=== PATIENT | female | born 1945 | race Caucasian/White ===

== ENCOUNTER 2020-11-06 16:16 | Outpatient (REF) | payer MEDICARE, SELFPAY ==
--- NOTE | ~2020-11-06 | XR_ITS ---
EXAMINATION: XR SHOULDER, RIGHT CLINICAL INFORMATION: Pain right shoulder COMPARISON: None TECHNIQUE: AP external rotation, Grashey, scapular Y, and axillary views of the right shoulder. FINDINGS: There is mild loss of right hip joint space without bony erosive changes. There is moderate inferior pulmonary articular spurring right extending into the rotator cuff. The soft tissues are normal. No acute fracture or dislocation. XR/XR shoulder RT min 2V IMPRESSION: Moderate right inferior periarticular spurring AC joint extending into the rotator cuff. Mild degenerative changes right glenohumeral joint.
== END 2020-11-06 16:17 | disposition home or self-care (01) ==
LOC: HO.HMGCX 16:16
PROVIDERS: PCP Internal Medicine; Visit Provider Hospitalist
DX: M25.511 Pain in right shoulder (principal)
CPT/HCPCS: 73030

== ENCOUNTER 2021-01-31 09:03 | Outpatient (REF) | payer MEDICARE, SELFPAY ==
[2021-01-31 11:19] LABS: Appearance Urine CLEAR; Color Urine YELLOW; Glucose Urine UA NEG (NEG); Leukocyte Esterase Urine NEG (NEG); Nitrite Urine NEG (NEG); Specific Gravity - Urine 1.025 (1.005-1.025); Urine Blood NEG (NEG); Urine Ketones 5 MG/DL (NEG); Urine Protein NEG (NEG-TRACE)
== END 2021-01-31 09:04 | disposition home or self-care (01) ==
LOC: HO.HMGCLDS 09:03
PROVIDERS: PCP Internal Medicine; Visit Provider Internal Medicine
DX: R82.71 Bacteriuria (principal)
CPT/HCPCS: 81003

== ENCOUNTER 2021-05-01 07:39 | Outpatient (REF) | payer MEDICARE, SELFPAY ==
--- NOTE | ~2021-05-01 | US_ITS ---
EXAMINATION: US VENOUS ULTRASOUND WITH DOPPLER LOWER EXTREMITY, BILATERAL CLINICAL INFORMATION: Leg edema. COMPARISON: None TECHNIQUE: Ultrasound of the deep veins is performed from the hip to the calf with compression sonography and color and pulse Doppler assessment. Spectral analysis with color-flow imaging is performed. FINDINGS: RIGHT: There is normal venous compression and respiratory variation and augmented flow. The visualized common femoral vein, superficial femoral vein, profunda femoral vein, popliteal vein, and the trifurcation region shows no evidence of deep venous thrombosis. There is no significant popliteal fossa cyst. LEFT: There is normal venous compression and respiratory variation and augmented flow. The visualized common femoral vein, superficial femoral vein, profunda femoral vein, popliteal vein, and the trifurcation region shows no evidence of deep venous thrombosis. There is no significant popliteal fossa cyst. If the patient's symptoms persist, followup ultrasound in 5 days 7 days might be of value to exclude proximal propagation from a non-visualized calf vein. There is no loculated the fluid around the ankle. US/US venous duplex LE BI IMPRESSION: No DVT demonstrated in the lower extremities.
== END 2021-05-01 07:40 | disposition home or self-care (01) ==
LOC: HO.US 07:39
PROVIDERS: PCP Internal Medicine; Visit Provider Internal Medicine
DX: R60.0 Localized edema (principal)
CPT/HCPCS: 93970

== ENCOUNTER 2022-09-12 08:44 | Outpatient (REF) | payer MEDICARE, SELFPAY ==
[2022-09-12 11:41] LABS: Hematocrit 42.8 % (37.0-47.0); Hemoglobin 13.7 g/dl (12.0-16.0); Mean Corpuscular Hemoglobin 32.3 pg (27.0-33.0); Mean Corpuscular Volume 100.9 fL (80.0-98.0); Mean Platelet Volume 8.8 fL (9.4-12.3); Platelet Count 381 X10*3/uL (160-400); Red Blood Count 4.24 X10*6/uL (4.20-5.50); Red Cell Distribution Width 13.4 % (11.0-16.0); White Blood Count 10.7 X10*3/uL (4.8-10.8)
== END 2022-09-12 08:45 | disposition home or self-care (01) ==
LOC: HO.HMGCLDS 08:44
PROVIDERS: PCP Internal Medicine; Visit Provider Internal Medicine
DX: D69.6 Thrombocytopenia, unspecified (principal)
CPT/HCPCS: 36415; 85027

== ENCOUNTER 2022-10-10 08:32 | Outpatient (REF) | payer MEDICARE, SELFPAY ==
[2022-10-10 11:44] LABS: Alanine Aminotransferase 17 U/L (0-31); Albumin Level 4.1 g/dL (3.5-5.0); Alkaline Phosphatase 67 U/L (39-117); Anion Gap 13 (12-20); Aspartate Amino Transferase 20 U/L (5-31); Bilirubin Total 0.9 mg/dL (0.0-1.0); Blood Urea Nitrogen 15 mg/dL (9-16); Calcium 9.5 mg/dL (8.4-10.2); Carbon Dioxide 32 mmol/L (22-29); Chloride 102 mmol/L (96-108); Cholesterol 176 mg/dL; Estimated Glomerular Filt Rate > 60; Glucose Fasting 94 mg/dL (60-99); HDL Cholesterol 57 mg/dL; LDL Cholesterol Calculated 105 mg/dl; Magnesium 2.2 mg/dL (1.6-2.6); Potassium 4.3 mmol/L (3.3-5.1); Sodium 143 mmol/L (135-145); Total Protein 6.8 g/dL (6.5-8.0); Triglycerides 70 mg/dL
[2022-10-10 13:09] LABS: Free T4 (Free Thyroxine) 1.16 ng/dL (0.71-1.85)
== END 2022-10-10 08:33 | disposition home or self-care (01) ==
LOC: HO.HMGCLDS 08:32
PROVIDERS: PCP Internal Medicine; Visit Provider Internal Medicine
DX: I10 Essential (primary) hypertension (principal); E03.9 Hypothyroidism, unspecified; E78.5 Hyperlipidemia, unspecified
CPT/HCPCS: 36415; 80053; 80061; 83735; 84439; 84443

== ENCOUNTER 2022-12-26 12:49 | Outpatient (AMB) | payer MEDICARE, SELFPAY ==
[2022-12-26 13:08] VITALS: BP 136/80; PULSE 61; BMI 27.8
--- NOTE | 2022-12-26 13:08 | A.OFFVIS_ITS ---
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 Intake Note: NPV Accompanied by: Self / Same As Patient Allergies lisinopril Allergy (Unknown, Verified 12/26/22 13:10) hyperkalemia amlodipine Adverse Reaction (Verified 12/26/22 13:10) swelling in hands and legs Medication List - Last Reconciled 12/26/22 by Denis Mckinney MD ascorbate calcium (vitamin C) 500 mg PO DAILY atorvastatin 10 mg PO DAILY cholecalciferol (vitamin D3) 25 mcg PO DAILY gabapentin 600 mg PO BEDTIME hydrochlorothiazide 25 mg PO QAM levothyroxine 112 mcg PO DAILY lidocaine 5% 1 ea topical BID jw-vcsuoek-quq-iron fm-FA-vitK 18 mg-400 mcg- 25 mcg (One-A-Day Women's Complete(with vit K)) tabs PO HPI HPI Comments History of Present Illness Details Maxine is here for evaluation regarding abnormal EKG. She does not have any known history of coronary disease, myocardial infarction or cardiomyopathy. She has seen [facility] in the past. She seems to medications for hypertension, dyslipidemia. No clear-cut chest pains. Sometimes may get short of breath with activity. At nighttime she may get dizzy when she gets up which could be orthostatic in nature. Due to concern for abnormal EKG, she has been referred here. [facility] Medical History Annual physical exam Bacteriuria Hiatal hernia Hyperlipidemia Hypothyroidism Leg edema Lumbar radiculopathy Normal pelvic exam Vitamin D deficiency Surgical History H/O colonoscopy History of esophagogastroduodenoscopy (EGD) History of spinal surgery Family History Father No problems noted. Mother No problems noted. Social History Housing: House Alcohol intake: current Alcohol intake frequency: holidays/special occasions only Patient Tobacco Use Status: Never used Tobacco e-Cigarette/Vaping Use: Never Used Current occupational status: retired Cognitive needs: No Hearing needs: No Vision needs: No Review of Systems Const Denies chills, Denies daytime sleepiness, Denies fatigue, Denies fever(s), Denies frequent falls, Denies night sweats, Denies snoring, Denies weakness, Denies weight gain and Denies weight loss Eyes Denies loss of vision ENT Denies dizziness and Denies hearing loss Card Denies chest pain, Denies chest pain with activity, Denies syncope, Denies rapid heart rate, Denies edema, Denies claudication, Denies leg edema, Denies lightheadedness, Denies palpitations, Denies dyspnea, Denies dyspnea on exertion and Denies orthopnea Resp Denies cough, Denies excessive phlegm production, Denies dyspnea, Denies dyspnea on exertion, Denies snoring and Denies wheezing GI Denies abdominal pain, Denies hematochezia, Denies change in bowel habits, Denies change in stool character, Denies heartburn, Denies nausea and Denies vomiting Denies hematuria, Denies urinary frequency and Denies dysuria Musc Denies arthralgias, Denies muscle weakness, Denies numbness and Denies tingling Skin/Breast Denies nail changes and Denies rash Neuro Denies Abnormal speech present, Denies dizziness, Denies syncope, Denies frequent falls, Denies loss of vision, Denies memory loss, Denies numbness, Denies tingling and Denies weakness Psych Denies depression and Denies memory loss Endo Denies fatigue and Denies palpitations Aller/Immun Denies wheezing Physical Exam Vital Signs: Last Vital Signs Pulse 61 12/26/22 13:08 BP 136/80 12/26/22 13:08 BMI result Body Mass Index 27.8 Const General: comfortable and no acute distress Orientation/consciousness: patient oriented x3 HEENT Other: Unremarkable Head: Yes normal to inspection Neck Neck: Yes normal visual inspection Chest Chest palpation & inspection: normal inspection of the chest Resp Auscultation: clear to auscultation bilaterally Cardio Palpation: normal PMI Heart sounds: S1 normal heart sound present, S2 normal heart sound present, no gallops, no murmurs and no rubs GI Palpation (GI): Soft to palpation Back/Spine/Pelvis Other: unremarkable Skin General skin exam: no rashes or lesions noted Neuro General: patient oriented x3 Speech: No Abnormal speech present Extrem General: Yes normal to inspection Psych Mental Status: mental status grossly normal Assessment & Plan Assessment & Plan (1) Abnormal EKG: Code(s): R94.31 - Abnormal electrocardiogram [ECG] [EKG] Plan In the recent EKG, underlying rhythm is sinus at 69/Min; no significant ST-T changes; cannot exclude inferior as well as anterolateral infarction. Compared to prior EKG from [facility] in 2020, no significant changes. Echocardiogram from [facility] 2020 shows LVEF of 60-65%. No wall motion abnormalities. No significant valvular issues. Myocardial perfusion imaging study from 2020 at [facility] showed no significant perfusion abnormalities. However, in the exercise component she walked only for 4 minutes and reached 5.7 Mets. Hence possibly inadequate exercise time. Overall, her EKG has not changed significantly from the last time and based on the above no clear ischemic heart disease either. As the stress test was suboptimal the last time, we can consider repeating it. We can re-attempt walking on the treadmill. If inadequate, possibly switch to Lexiscan. With regard to nighttime dizziness, probably orthostatic. Will need to be careful getting up. Discussed. Follow-up in a few weeks time. Total time spent including review of [facility] records, counseling, documentation, coordination of care-47 minutes. Orders: Orders CA stress test Today R07.2 - Precordial pain, R94.31 - Abnormal electrocardiogram [ECG] [EKG] NM cardiolite stress test Today R07.2 - Precordial pain, R94.31 - Abnormal electrocardiogram [ECG] [EKG] Coding Level of Care Code New Pt Level 4 (71290) Diagnoses Abnormal EKG R94.31
== END 2022-12-26 13:39 | disposition home or self-care (01) ==
PROVIDERS: PCP Internal Medicine; Referring Provider Internal Medicine; Visit Provider Internal Medicine
DX: R94.31 Abnormal electrocardiogram [ECG] [EKG] (principal)
CPT/HCPCS: 99204

== ENCOUNTER → 2022-12-26 12:49 | Outpatient (BNVA) | payer MEDICARE, SELFPAY | PROVIDERS: PCP Internal Medicine; Referring Provider Internal Medicine; Visit Provider Internal Medicine | DX: R94.31 Abnormal electrocardiogram [ECG] [EKG] (principal) | CPT/HCPCS: 99202 ==

== ENCOUNTER → 2023-02-11 08:38 | Outpatient (REF) | payer MEDICARE, SELFPAY ==
--- NOTE | ~2023-02-11 | NM_ITS ---
EXERCISE MYOCARDIAL PERFUSION STUDY INDICATION: Abnormal EKG TECHNIQUE: The patient was brought in for an exercise perfusion study on 02/11/2023. Patient performed exercise as per [facility] protocol and was injected 25 mCi of sestamibi once target heart rate was achieved. Images were obtained using the SPECT gamma camera interlaced with the gating device. Images were obtained in supine position. Resting perfusion study was performed on 02/12/2023. Patient was administered 25 mCi of sestamibi intravenously at rest. Images were then obtained in supine position. Images were processed with the software and compared side to side in short axis, horizontal long axis and vertical long axis views. Total DLP 118mGy-cm. FINDINGS: Raw images were reviewed. The stress perfusion study showed diminished tracer uptake in the distal part of inferolateral wall. There is improvement with CT attenuation correction suggestive of diaphragmatic attenuation artifact. The gated study shows normal LV systolic function with calculated LVEF of 72%. LV cavity is normal in size. The gated study shows normal wall thickening and contraction of segments. Resting study shows diminished tracer uptake in the distal part of inferolateral wall. There is improvement with CT attenuation correction suggestive of diaphragmatic attenuation artifact. Gating at rest reveals normal wall motion with ejection fraction at 73%. The findings are consistent with fixed distal inferolateral defect suspected to be from diaphragmatic attenuation artifact. No clear reversible defects. NM/NM cardiolite stress test IMPRESSION: 1. Myocardial perfusion imaging study shows likely normal myocardial perfusion. 2. Gated LVEF is 72% during stress and 73% during rest.. 3. Transient ischemic dilatation not present. EKG component of the test reported separately.
--- NOTE | 2023-02-11 08:40 | CA_ITS ---
Acquisition Time: 2023-02-11 08:56:55 Total Exercise Time: 00:05:01 Test Indications: ABN EKG Medications: SEE H Protocol: OSEAS Max HR: 146 BPM 102% of Pred: 143 BPM Max BP: 140/084 mmHG Max Work Load: 5.7 METS Exercise stress test exercise 5 min 1 sec of Oseas protoocl achieving 102% MPHR, without chest discomfort, with mild to moderate SOB, with isolated PACs, with normotensive response to exercise, without EKG changes. Nuclear images pending. Test reviewed with Dr. Whitman Referred By: Denis Mckinney Overread By: Britany Melendez
== END ==
LOC: HO.CARD 08:38
PROVIDERS: PCP Internal Medicine; Visit Provider Internal Medicine
DX: R07.2 Precordial pain (principal); R94.31 Abnormal electrocardiogram [ECG] [EKG]
CPT/HCPCS: 78452; 93017; A9500

== ENCOUNTER → 2023-02-11 08:40 | Outpatient (BNV) | payer MEDICARE, SELFPAY | PROVIDERS: PCP Internal Medicine; Visit Provider Nurse Practitioner | DX: R06.02 Shortness of breath (principal); R94.31 Abnormal electrocardiogram [ECG] [EKG] | CPT/HCPCS: 78452; 93016; 93018 ==

== ENCOUNTER 2023-02-14 08:09 | Outpatient (AMB) | payer MEDICARE, SELFPAY ==
[2023-02-14 08:14] VITALS: BP 122/64; PULSE 71; O2SAT 95; BMI 28.0
--- NOTE | 2023-02-14 08:14 | A.OFFPC_ITS ---
Vital Signs 02/14/23 08:14 Height 5 ft 6.5 in Weight 176 lb BMI 28.0 BP 122/64 Blood Pressure Location Lt brachial Position Sitting Pulse 71 Pulse Source Pulse Oximeter Pulse Oximetry (%) 95 Oxygen Delivery Method Room Air Intake Visit Reasons: 3m follow up Intake Note: Pt is here today for 3 months. Allergies lisinopril Allergy (Unknown, Verified 02/14/23 08:18) hyperkalemia amlodipine Adverse Reaction (Verified 02/14/23 08:18) swelling in hands and legs Medication List - Last Reconciled 02/14/23 by Anabella Lopez MD ascorbate calcium (vitamin C) 500 mg PO DAILY atorvastatin 10 mg PO DAILY cholecalciferol (vitamin D3) 25 mcg PO DAILY gabapentin 600 mg PO BEDTIME hydrochlorothiazide 25 mg PO QAM levothyroxine 112 mcg PO DAILY lidocaine 5% 1 ea topical BID pb-fnoorjm-uuh-iron fm-FA-vitK 18 mg-400 mcg- 25 mcg (One-A-Day Women's Complete(with vit K)) tabs PO Tobacco use date assessed: 02/14/23 HPI 3m follow up HPI Details Pt presents for f/u hyperlipid, hypothyroid, HTN, stable on meds. Patient is planning to sell her house and moved to the apartment next year. She is going on a trip to [place] next month. [facility] Medical History Vitamin D deficiency Normal pelvic exam Annual physical exam Leg edema Bacteriuria Hiatal hernia Hypothyroidism Hyperlipidemia Lumbar radiculopathy Surgical History History of esophagogastroduodenoscopy (EGD) H/O colonoscopy History of spinal surgery Family History Father No problems noted. Mother No problems noted. Social History Housing: House Alcohol intake: current Alcohol intake frequency: holidays/special occasions only Patient Tobacco Use Status: Never used Tobacco e-Cigarette/Vaping Use: Never Used Current occupational status: retired Cognitive needs: No Hearing needs: No Vision needs: No Review of Systems Const All systems reviewed & are unremarkable except as noted in HPI and below Reports no additional complaints Eyes Reports no additional complaints ENT Reports no additional complaints Card Reports no additional complaints Resp Reports no additional complaints GI Reports no additional complaints Physical exam (Primary Care) Vital Signs: Last Vital Signs Pulse 71 02/14/23 08:14 BP 122/64 02/14/23 08:14 Pulse Ox 95 02/14/23 08:14 Oxygen Delivery Method Room Air 02/14/23 08:14 BMI result Body Mass Index 28.0 Tobacco/Smoking Status: Tobacco use Status Tobacco use date assessed 02/14/23 02/14/23 08:20 Patient Tobacco Use Status Never used Tobacco 02/14/23 08:20 e-Cigarette/Vaping Use Never Used 02/14/23 08:20 Const General: no acute distress HENMT Head: Yes normal to inspection Mouth: Normal oral and palatal mucosa present Eyes General: appearance normal, both eyes and all related structures Resp Effort & Inspection: normal respiratory effort Auscultation: clear to auscultation bilaterally Cardio Rhythm: regular rhythm Heart sounds: S1 normal heart sound present and S2 normal heart sound present GI Inspection: Yes normal to inspection Assessment and Plan Assessment & Plan (1) HTN (hypertension): Code(s): I10 - Essential (primary) hypertension Plan: cont HCTZ (2) Vitamin D deficiency: Code(s): E55.9 - Vitamin D deficiency, unspecified Plan: cont vit D (3) Hypothyroidism: Comment: f/u with Endo Code(s): E03.9 - Hypothyroidism, unspecified Plan: Continue levothyroxine Orders: Orders TSH reflex Free T4 Today E03.9 - Hypothyroidism, unspecified, E55.9 - Vitamin D deficiency, unspecified, I10 - Essential (primary) hypertension Comprehensive Met. Panel Today E03.9 - Hypothyroidism, unspecified, E55.9 - Vitamin D deficiency, unspecified, I10 - Essential (primary) hypertension Vitamin D 25-OH Total Today E03.9 - Hypothyroidism, unspecified, E55.9 - Vitamin D deficiency, unspecified, I10 - Essential (primary) hypertension Medications: New omeprazole 20 mg PO DAILY 90 caps 0RF levothyroxine 112 mcg PO DAILY 90 tabs 3RF Coding Level of Care Code Est Pt Level 4 (75542) Diagnoses HTN (hypertension) I10 Vitamin D deficiency E55.9 Hypothyroidism E03.9
== END 2023-02-14 09:10 | disposition home or self-care (01) ==
PROVIDERS: PCP Internal Medicine; Visit Provider Internal Medicine
DX: I10 Essential (primary) hypertension (principal); E55.9 Vitamin D deficiency, unspecified; E03.9 Hypothyroidism, unspecified
CPT/HCPCS: 99214

== ENCOUNTER 2023-02-14 08:39 | Outpatient (REF) | payer MEDICARE, SELFPAY ==
[2023-02-14 11:58] LABS: Alanine Aminotransferase 17 U/L (0-31); Albumin Level 3.9 g/dL (3.5-5.0); Alkaline Phosphatase 68 U/L (39-117); Anion Gap 18 (12-20); Aspartate Amino Transferase 30 U/L (5-31); Bilirubin Total 0.5 mg/dL (0.0-1.0); Blood Urea Nitrogen 16 mg/dL (9-16); Calcium 9.5 mg/dL (8.4-10.2); Carbon Dioxide 26 mmol/L (22-29); Chloride 102 mmol/L (96-108); Estimated Glomerular Filt Rate > 60; Glucose Random 108 mg/dL (60-115); Potassium 4.1 mmol/L (3.3-5.1); Sodium 142 mmol/L (135-145); Total Protein 7.1 g/dL (6.5-8.0)
[2023-02-14 12:14] LABS: TSH reflex Free T4 2.98 uIU/mL (0.32-4.0); Vitamin D 25-OH Total 53.3 ng/mL (>30)
== END 2023-02-14 08:40 | disposition home or self-care (01) ==
LOC: HO.HMGCLDS 08:39
PROVIDERS: PCP Internal Medicine; Visit Provider Internal Medicine
DX: I10 Essential (primary) hypertension (principal); E55.9 Vitamin D deficiency, unspecified; E03.9 Hypothyroidism, unspecified
CPT/HCPCS: 36415; 80053; 82306; 84443

== ENCOUNTER 2023-03-21 08:33 | Outpatient (AMB) | payer MEDICARE, SELFPAY ==
[2023-03-21 08:41] VITALS: BP 120/72; PULSE 54; BMI 27.5
--- NOTE | 2023-03-21 08:41 | MHC.OFFVIS ---
Intake Vital Signs 03/21/23 08:41 Height 5 ft 6 in Weight 170 lb 3.15 oz BMI 27.5 BP 120/72 Blood Pressure Location Lt brachial Position Sitting Pulse 54 Pulse Source Pulse Oximeter Intake Visit Reasons: f/u after testing Allergies lisinopril Allergy (Unknown, Verified 03/21/23 08:43) hyperkalemia amlodipine Adverse Reaction (Verified 03/21/23 08:43) swelling in hands and legs Medication List - Last Reconciled 03/21/23 by Malinda Mcclure, MARK-C ascorbate calcium (vitamin C) 500 mg PO DAILY atorvastatin 10 mg PO DAILY cholecalciferol (vitamin D3) 25 mcg PO DAILY gabapentin 600 mg PO BEDTIME hydrochlorothiazide 25 mg PO QAM levothyroxine 112 mcg PO DAILY lidocaine 5% 1 ea topical BID ks-tgmgkpn-leq-iron fm-FA-vitK 18 mg-400 mcg- 25 mcg (One-A-Day Women's Complete(with vit K)) tabs PO omeprazole 20 mg PO DAILY HPI f/u after testing HPI Details Maxine is a 77-year-old female with past medical history of hypertension, hyperlipidemia, abnormal EKG who presents for follow-up after recent nuclear stress test. Today she reports she has been feeling well with no concerning symptoms. She denies any chest discomfort, shortness of breath, palpitations, presyncope, syncope, PND, orthopnea or edema. She has good activity tolerance. She takes her medications as directed. [facility] Medical History Vitamin D deficiency Normal pelvic exam Annual physical exam Leg edema Bacteriuria Hiatal hernia Hypothyroidism Hyperlipidemia Lumbar radiculopathy Surgical History History of esophagogastroduodenoscopy (EGD) H/O colonoscopy History of spinal surgery Family History Father No problems noted. Mother No problems noted. Social History Housing: House Alcohol intake: current Alcohol intake frequency: holidays/special occasions only Patient Tobacco Use Status: Never used Tobacco e-Cigarette/Vaping Use: Never Used Current occupational status: retired Cognitive needs: No Hearing needs: No Vision needs: No Review of Systems Const All systems reviewed & are unremarkable except as noted in HPI and below ENT Denies dizziness Card Denies chest pain, Denies chest pain at rest, Denies chest pain with activity, Denies rapid heart rate, Denies pedal edema, Denies edema, Denies leg edema, Denies lightheadedness, Denies palpitations, Denies dyspnea, Denies dyspnea on exertion and Denies orthopnea Resp Denies cough, Denies dyspnea and Denies dyspnea on exertion GI Denies hematochezia and Denies change in stool character Musc Details: Low back discomfort at times Denies abnormal gait, Denies limited range of motion, Denies muscle cramps, Denies muscle weakness, Denies numbness, Denies radiating pain into limb, Denies stiffness and Denies tingling Neuro Denies abnormal gait, Denies dizziness, Denies numbness and Denies tingling Endo Denies palpitations Physical Exam Vital Signs: Last Vital Signs Pulse 54 03/21/23 08:41 BP 120/72 03/21/23 08:41 BMI result Body Mass Index 27.5 Const General: cooperative, healthy appearing, comfortable and no acute distress Orientation/consciousness: patient oriented x3 HEENT Head: Yes normal to inspection Neck Neck: Yes normal visual inspection Resp Effort & Inspection: normal respiratory effort Auscultation: clear to auscultation bilaterally, no crackles, no rales, no rhonchi and no wheezes Cardio Jugular venous distension: no JVD Rate: regular rate Rhythm: regular rhythm Heart sounds: S1 normal heart sound present, S2 normal heart sound present, no murmurs and no rubs Neuro General: patient oriented x3 Extrem General: Yes normal to inspection, No no pedal edema and No calf tenderness Psych Appearance: grossly normal Mental Status: mental status grossly normal Speech and movement: Normal speech and movement present Assessment & Plan Assessment & Plan (1) Abnormal EKG: Code(s): R94.31 - Abnormal electrocardiogram [ECG] [EKG] Plan: EKGs abnormal, can not exclude inferior and anterior lateral MIs in the past. She denies any known history of known ND, heart disease. Echocardiogram done at [facility] 2020 showed EF 60-65%, no wall motion abnormalities, no significant valve abnormalities. EKG done at that time no significant change from current EKG. Nuclear stress test done in 2020 showed no significant perfusion defects. She did have low exercise capacity. On last visit she was evaluated and had no anginal symptoms. A repeat nuclear stress test was done on 02/11/2023 with exercise 5 minutes achieving heart rate 1 0 2% mph are, [id number] shortness of breath, no chest discomfort, no EKG changes and normal myocardial perfusion imaging. Spent time reviewing results with her in detail. Cardiac risk factor modifications reviewed. Signs and symptoms of angina reviewed. Cardiology follow-up in 1 year, sooner if needed (2) HTN (hypertension): Code(s): I10 - Essential (primary) hypertension Plan: Well controlled at present. Continue atorvastatin and hydrochlorothiazide. No changes made Coding Level of Care Code Est Pt Level 3 (77321) Diagnoses Abnormal EKG R94.31 HTN (hypertension) I10 Time Spent (min) 24
== END 2023-03-21 09:01 | disposition home or self-care (01) ==
PROVIDERS: PCP Internal Medicine; Visit Provider Nurse Practitioner Family
DX: R94.31 Abnormal electrocardiogram [ECG] [EKG] (principal); I10 Essential (primary) hypertension
CPT/HCPCS: 99213

== ENCOUNTER → 2023-03-21 08:33 | Outpatient (BNVA) | payer MEDICARE, SELFPAY | PROVIDERS: PCP Internal Medicine; Visit Provider Nurse Practitioner Family | DX: R94.31 Abnormal electrocardiogram [ECG] [EKG] (principal); I10 Essential (primary) hypertension | CPT/HCPCS: 99212 ==

== ENCOUNTER 2023-07-03 10:52 | Outpatient (AMB) | payer MEDICARE, SELFPAY ==
[2023-07-03 10:59] VITALS: BP 118/74; PULSE 69; TEMP 36.4; O2SAT 99; BMI 27.9
--- NOTE | 2023-07-03 10:59 | MHC.OFFWIV ---
Intake Vital Signs 07/03/23 10:59 Height 5 ft 6 in Weight 173 lb BMI 27.9 BP 118/74 Blood Pressure Location Lt brachial Position Sitting Pulse 69 Pulse Source Pulse Oximeter Temp 97.6 F Temp Source Temporal Artery Scan Pulse Oximetry (%) 99 Oxygen Delivery Method Room Air Intake Visit Reasons: EP LFT shoulder pain Intake Note: pt is here today for lft shoulder pain started 1 week ago Patient Tobacco Use Status: Never used Tobacco Allergies lisinopril Allergy (Unknown, Verified 07/03/23 11:04) hyperkalemia amlodipine Adverse Reaction (Verified 07/03/23 11:04) swelling in hands and legs Do you need a note to return to daycare/school/sports/work: No HPI HPI Comments History of Present Illness Details This is a right-hand dominant 77-year-old female with a past medical history of hypertension, hypothyroidism and hyperlipidemia presenting for evaluation of left shoulder pain that she has had for the past 1 week. Patient denies any injury or trauma but noted this morning that it was very painful when she was trying to put on her bra. Patient is describing a throbbing sensation in her left for your shoulder that is reproducible with touch. Patient denies any overt chest in, cough or shortness a breath. She has taken ibuprofen 800mg one time yesterday which she found moderately helpful for her discomfort. [facility] Medical History Vitamin D deficiency Normal pelvic exam Annual physical exam Leg edema Bacteriuria Hiatal hernia Hypothyroidism Hyperlipidemia Lumbar radiculopathy Surgical History History of esophagogastroduodenoscopy (EGD) H/O colonoscopy History of spinal surgery Family History Father No problems noted. Mother No problems noted. Social History Housing: House Alcohol intake: current Alcohol intake frequency: holidays/special occasions only Patient Tobacco Use Status: Never used Tobacco e-Cigarette/Vaping Use: Never Used Current occupational status: retired Cognitive needs: No Hearing needs: No Vision needs: No Review of Systems Const Reports no additional complaints Card Reports as per HPI, Denies chest pain and Denies dyspnea Resp Reports as per HPI and Denies dyspnea Musc Reports arthralgias (left shoulder) Skin/Breast Reports system reviewed and no additional complaints, except as documented Psych Reports no additional complaints Physical Exam Vital Signs: Last Vital Signs Temp 97.6 F 07/03/23 10:59 Pulse 69 07/03/23 10:59 BP 118/74 07/03/23 10:59 Pulse Ox 99 07/03/23 10:59 Oxygen Delivery Method Room Air 07/03/23 10:59 BMI result Body Mass Index 27.9 Const General: cooperative, healthy appearing, comfortable, no acute distress and well developed; No ill appearing Nutritional Appearance: average body habitus Orientation/consciousness: patient oriented x3 Limitations: no limitations Resp Effort & Inspection: normal respiratory effort Auscultation: clear to auscultation bilaterally Cardio Rate: regular rate Rhythm: regular rhythm Neuro General: patient oriented x3 Extrem Left upper extremity: normal to inspection, full ROM, no joint enlargement and shoulder/upper arm Details: tenderness (left anterior shoulder ) and abnormal ROM (pain L. anterior shoulder with internal rotation of LUE against resistance and abduction); no swelling Psych Appearance: grossly normal Mental Status: mental status grossly normal Insight: Good insight present (Psych) Judgement: Good judgement present (Psych) Assessment & Plan Assessment & Plan (1) Left shoulder strain: Comment: EKG 64bpm, NSR; no acute injury or trauma to left shoulder and therefore imaging is deferred today. Code(s): S46.912A - Strain of unspecified muscle, fascia and tendon at shoulder and upper arm level, left arm, initial encounter Qualifiers: Encounter type: initial encounter Qualified Code(s): S46.912A - Strain of unspecified muscle, fascia and tendon at shoulder and upper arm level, left arm, initial encounter Plan: Naprosyn 500 mg b.i.d. x 10 days. Patient to follow up with her primary care provider within 10-14 days for a re-evaluation of her symptoms and possible referral for physical therapy evaluation. Orders: Orders AMB EKG-In Office Today S46.912A - Strain of unspecified muscle, fascia and tendon at shoulder and upper arm level, left arm, initial encounter Medications: New naproxen (Naprosyn) 500 mg PO BID 20 tabs 0RF Coding Level of Care Code Est Pt Level 3 (21132) Diagnoses Strain of left shoulder, initial encounter S46.912A Encounter type: initial encounter Time Spent (min) 25
== END 2023-07-03 12:25 | disposition home or self-care (01) ==
PROVIDERS: PCP Internal Medicine; Visit Provider Physician Assistant
DX: S46.912A Strain of unspecified muscle, fascia and tendon at shoulder and upper arm level, left arm, initial encounter (principal)
CPT/HCPCS: 99213

== ENCOUNTER 2023-08-13 07:54 | Outpatient (AMB) | payer MEDICARE, SELFPAY ==
[2023-08-13 08:26] VITALS: BP 126/78; PULSE 61; O2SAT 95; BMI 28.7
--- NOTE | 2023-08-13 08:26 | AM.OFFVISMDC ---
Intake Vital Signs 08/13/23 08:26 Height 5 ft 6 in Weight 178 lb BMI 28.7 BP 126/78 Blood Pressure Location Lt brachial Position Sitting Pulse 61 Pulse Source Pulse Oximeter Pulse Oximetry (%) 95 Oxygen Delivery Method Room Air Intake Visit Reasons: SWV G0439 Allergies lisinopril Allergy (Unknown, Verified 08/13/23 08:39) hyperkalemia amlodipine Adverse Reaction (Verified 08/13/23 08:39) swelling in hands and legs Medication List - Last Reconciled 08/13/23 by Anabella Lopez MD ascorbate calcium (vitamin C) 500 mg PO DAILY atorvastatin 10 mg PO DAILY cholecalciferol (vitamin D3) 25 mcg PO DAILY gabapentin 600 mg PO BID hydrochlorothiazide 25 mg PO QAM ibuprofen 800 mg PO Q8H levothyroxine 112 mcg PO DAILY lidocaine 5% 1 ea topical BID cb-ufdmcvg-pjo-iron fm-FA-vitK 18 mg-400 mcg- 25 mcg (One-A-Day Women's Complete(with vit K)) tabs PO omeprazole 20 mg PO DAILY HPI SWV G0439 HPI Details Initiated the conversation about Advanced Directives. Advanced Directives help? patients prepare for current and future decisions about their medical treatment? and place of care. Discussed with patient that it is a process where a patients? current condition and prognosis are reviewed, their wishes for information? regarding their illness are elicited, and likely medical dilemmas are presented? and options discussed. The form can be amended as needed, reviewed yearly and? make changes as needed IPPE/AWV ? year old presents? for her ? Annual? Wellness Visit, initial visit.? Medical / Social History Reviewed? Past Medical History ?Yes? . ? Independence? of Care / Care Team list updated ?Yes . ? Surgical/Hospitalization? History ?Yes . ? Current Medications? (including OTC and supplements) ?Yes . ? Family History ?Yes? . ? Tobacco? Control form ?Yes . ? AUDIT-C (Alcohol use) form? ?Yes . ? Illicit drug use in Social? History ?Yes . ? Current diagnosis of? depression? ?No ? Appropriate PHQ2/PHQ9? completed ?Yes . ? Data entered by ?Medical? Director Cardiac and reviewed by provider ? Fall Risk ? Fall? History? Have you had any falls with? injury in the past year? ?No . ? Have you had two or more? falls in the past year? ?No . ? Fall Risk Assessment: ?No? falls in the past year . ? HRA filled out by? the patient, reviewed by Provider and scanned. ? IPPE/AWV ? Balance? [place]? ?Yes . ? Tandem? walk ?Yes . ? Walk and? Turn ?Yes . ? Rise from? sit to stand ?Yes . ?Vision? Corrective? lens ?Yes ? Vision? screen ? Up-to-date, has an appointment [] for vision? screening and glaucoma screening ?Hearing? Whisper? test ?pass .? Initiated the conversation about Advanced Directives. Advanced Directives help? patients prepare for current and future decisions about their medical treatment? and place of care. Discussed with patient that it is a process where a patients? current condition and prognosis are reviewed, their wishes for information? regarding their illness are elicited, and likely medical dilemmas are presented? and options discussed. The form can be amended as needed, reviewed yearly and? make changes as needed Written? Plan?Completed. See Patient? Documents. [facility] Medical History Vitamin D deficiency Normal pelvic exam Annual physical exam Leg edema Bacteriuria Hiatal hernia Hypothyroidism Hyperlipidemia Lumbar radiculopathy Surgical History History of esophagogastroduodenoscopy (EGD) H/O colonoscopy History of spinal surgery Family History Father No problems noted. Mother No problems noted. Social History Housing: House Alcohol intake: current Alcohol intake frequency: holidays/special occasions only Patient Tobacco Use Status: Never used Tobacco e-Cigarette/Vaping Use: Never Used Current occupational status: retired Cognitive needs: No Hearing needs: No Vision needs: No Questionnaire Medicare Wellness Checkup [age] What gender do you identify with?: female During the past 4 weeks, how much have you been bothered by emotional problems such as feeling anxious, depressed, irritable, sad or downhearted, and blue?: not at all During the past 4 weeks, has your physical & emotional health limited your social activities with family, friends, neighbors, or groups?: not at all During the past 4 weeks, how much bodily pain have you generally had?: very mild pain During the past 4 weeks, was someone available to help you if you needed & wanted help?: no, not at all During the past 4 weeks, what was the hardest physical activity you could do for at least 2 minutes?: very light Can you get to places out of walking distance without help? (For eg., can you travel alone on buses, taxis or drive your car?): Yes Can you go shopping for groceries or clothes without someone's help?: Yes Can you prepare your own meals?: Yes Can you do your housework without help?: Yes Because of any health problems, do you need the help of another person with your personal care needs such as eating, bathing, dressing or getting around the house?: No Can you handle your own money without help?: Yes During the past 4 weeks, how would you rate your health in general?: very good During the past 4 weeks how have things been going for you?: very well; could hardly better Are you having difficulties driving your car?: not applicable, I don't use a car Do you always fasten your seat belt when you are in a car?: yes, usually During past 4 weeks, have you been bothered by the following: never: Falling or dizzy when standing up, Sexual problems?, Trouble eating well?, Teeth or denture problems?, Problems using the telephone? and Tiredness or fatigue? Have you fallen 2 or more times in the past year?: No Are you afraid of falling?: No Are you a smoker?: no During the past 4 weeks, how many drinks of wine, beer, or other alcoholic beverages did you have?: no alcohol at all Do you exercise for about 20 minutes 3 or more times a week?: yes, some of the time Have you been given information to help with the following?: yes: Keeping track of your medications? and no: Hazards in your house that might hurt you? How often do you have trouble taking medicines the way you have been told to take them?: I always take medicine as prescribed How confident are you that you can control & manage most of your health problems?: very confident What is your race?: White Mini Mental State Exam (MMSE) Orientation What is the (year) (season) (date) (day) (month)?: year, season, date, day and month Where are we (state) (county) (town or city) (hospital) (floor)?: state, county, town or city, hospital/clinic and floor Registration Name of 3 unrelated objects clearly and slowly, then ask patient to repeat all 3 of them. (1st repeat determines score. Make sure they can repeat all three): object 1, object 2 and object 3 Attention & Calculation (CHOOSE ONE) Spell WORLD backwards (DLROW): 5 letters Recall Ask patient to repeat the 3 items from question #3.: object 1, object 2 and object 3 Language Show patient a wristwatch & ask what it is. Repeat for pencil.: watch and pencil Ask the patient to repeat the phrase 'No ifs, ands, or buts' after you.: correct Ask the patient to 'take a piece of paper with their right hand' 'fold paper in half' 'place paper on floor': take paper in right hand, fold paper in half and place paper on floor Print the sentence 'CLOSE YOUR EYES' on a piece. If patient actually closes eyes then score.: followed written direction Give patient a blank piece of paper & ask to write a sentence. Score if it contains a noun & verb.: sentence contains subject and verb Score Score: 29 Activity of Daily Living Bathing - sponge bath, tub bath or shower: receives no assistance (gets in/out by self, if usual bathing means Dressing - getting clothes from closets & drawers, including inner/outer garments & fasteners.: gets clothes & gets completely dressed without help Toileting - going to the 'toilet room' for urine/bowel elimination & cleaning self/arranging clothes: goes to toilet room, cleans self, arranges clothes without help Transfer: moves in & out of bed and chair without help (may use support object) Continence: controls urination/bowel movements completely by self Feeding: feeds self without help Total Score: 0 Information obtained from: patient Using telephone: independent Traveling: independent Shopping: independent Preparing meals: independent Housework: independent Taking medicine: independent Managing money: independent PHQ-9 Over the last 2 weeks, how often have you been bothered by any of the following problems? 1. Little interest or pleasure in doing things: not at all 2. Feeling down, depressed, or hopeless: not at all 3. Trouble falling or staying asleep, or sleeping too much: not at all 4. Feeling tired or having little energy: not at all 5. Poor appetite or overeating: not at all 6. Feeling bad about yourself - or that you are a failure or have let yourself or your family down: not at all 7. Trouble concentrating on things, such as reading the newspaper or watching television: not at all 8. Moving or speaking so slowly that other people could have noticed. Or the opposite - being so fidgety or restless that you have been moving around a lot more than usual: not at all 9. Thoughts that you would be better off or of hurting yourself in some way: not at all Total score: 0 Depression Screening Interpretation: Negative Depression Screening Done: Yes Source: Developed by Drs. Michael Cuevas, Mercedes Costello, Geraldo Hartley and colleagues, with an educational garima from [employer] ([employer]). Review of Systems Const All systems reviewed & are unremarkable except as noted in HPI and below Reports no additional complaints Eyes Reports no additional complaints ENT Reports no additional complaints Card Reports no additional complaints Resp Reports no additional complaints GI Reports no additional complaints Reports no additional complaints Physical Exam Vital Signs: Last Vital Signs Pulse 61 08/13/23 08:26 BP 126/78 08/13/23 08:26 Pulse Ox 95 08/13/23 08:26 Oxygen Delivery Method Room Air 08/13/23 08:26 BMI result Body Mass Index 28.7 Const General: no acute distress HEENT Head: Yes normal to inspection Ears: hearing grossly normal bilaterally Eyes General: appearance normal, both eyes and all related structures Neck Neck: Yes no lymphadenopathy and Yes supple Resp Effort & Inspection: normal respiratory effort Auscultation: clear to auscultation bilaterally Cardio Rhythm: regular rhythm Heart sounds: S1 normal heart sound present and S2 normal heart sound present GI Inspection: Yes normal to inspection Palpation (GI): Soft to palpation Percussion: Yes normal to percussion Auscultation: normal bowel sounds Extrem General: Yes no clubbing, cyanosis or edema Assessment & Plan Assessment & Plan (1) HTN (hypertension): Code(s): I10 - Essential (primary) hypertension Plan: continue meds (2) Lumbar radiculopathy: Comment: s/p multiple L spine surgery, hardware, spinal stenosis Code(s): M54.16 - Radiculopathy, lumbar region Plan: cont regular physical activity (3) Hyperlipidemia: Code(s): E78.5 - Hyperlipidemia, unspecified Plan: cont statin (4) Hypothyroidism: Comment: f/u with Endo Code(s): E03.9 - Hypothyroidism, unspecified Plan: cont Levothyroxine (5) Annual physical exam: Code(s): Z00.00 - Encounter for general adult medical examination without abnormal findings Plan: Well-balanced diet regular physical activity discussed with the patient. She will have a fasting blood work today follow-up in 6 months (6) Vitamin D deficiency: Code(s): E55.9 - Vitamin D deficiency, unspecified Plan: cont vit D supplement Orders: Orders Lipid Panel Today E03.9 - Hypothyroidism, unspecified, E55.9 - Vitamin D deficiency, unspecified, E78.5 - Hyperlipidemia, unspecified, I10 - Essential (primary) hypertension, M54.16 - Radiculopathy, lumbar region, Z00.00 - Encounter for general adult medical examination without abnormal findings Vitamin D 25-OH Total Today E03.9 - Hypothyroidism, unspecified, E55.9 - Vitamin D deficiency, unspecified, E78.5 - Hyperlipidemia, unspecified, I10 - Essential (primary) hypertension, M54.16 - Radiculopathy, lumbar region, Z00.00 - Encounter for general adult medical examination without abnormal findings Comprehensive [place]. Panel Fast Today E03.9 - Hypothyroidism, unspecified, E55.9 - Vitamin D deficiency, unspecified, E78.5 - Hyperlipidemia, unspecified, I10 - Essential (primary) hypertension, M54.16 - Radiculopathy, lumbar region, Z00.00 - Encounter for general adult medical examination without abnormal findings Complete Blood Count Auto Diff Today E03.9 - Hypothyroidism, unspecified, E55.9 - Vitamin D deficiency, unspecified, E78.5 - Hyperlipidemia, unspecified, I10 - Essential (primary) hypertension, M54.16 - Radiculopathy, lumbar region, Z00.00 - Encounter for general adult medical examination without abnormal findings TSH reflex Free T4 Today E03.9 - Hypothyroidism, unspecified, E55.9 - Vitamin D deficiency, unspecified, E78.5 - Hyperlipidemia, unspecified, I10 - Essential (primary) hypertension, M54.16 - Radiculopathy, lumbar region, Z00.00 - Encounter for general adult medical examination without abnormal findings Medications: Refilled omeprazole 20 mg PO DAILY 90 caps 3RF ibuprofen 800 mg PO Q8H 30 tabs 0RF Discontinued naproxen (Naprosyn) Discontinued Reason: Doctor's Order 500 mg PO BID 20 tabs 0RF Quality Reporting (2019) Depression/Bipolar (159/160/161/177) PHQ-9: Total score: 0 Coding Level of Care Code Medicare Subsequent (G0439) Diagnoses HTN (hypertension) I10 Lumbar radiculopathy M54.16 Hyperlipidemia E78.5 Hypothyroidism E03.9 Annual physical exam Z00.00 Vitamin D deficiency E55.9 CPT Codes Advance Care Planning - Advance Care Planning discussion: On file, no changes ([id number]) Advance Care Planning - Time spent: 1-15 minutes, on File ([id number]) Advance Care Planning Advance Care Planning discussion: On file, no changes Forms completed: Health Care Proxy Time spent: 1-15 minutes, on File
== END 2023-08-13 09:00 | disposition home or self-care (01) ==
PROVIDERS: Visit Provider Internal Medicine
DX: I10 Essential (primary) hypertension (principal); M54.16 Radiculopathy, lumbar region; E78.5 Hyperlipidemia, unspecified; E03.9 Hypothyroidism, unspecified; Z00.00 Encounter for general adult medical examination without abnormal findings; E55.9 Vitamin D deficiency, unspecified
CPT/HCPCS: 1123F; G0439

== ENCOUNTER 2023-08-13 09:07 | Outpatient (REF) | payer MEDICARE, SELFPAY ==
[2023-08-13 10:33] LABS: MANUAL DIFF FLAG NO
[2023-08-13 10:37] LABS: Basophils Absolute Auto 0.1 X10*3/uL (0.0-0.2); Basophils Percent Auto 0.6 % (0-2); Eosinophils Absolute Auto 0.3 X10*3/uL (0.0-0.4); Eosinophils Percent Auto 3.4 % (0-4); Hematocrit 37.4 % (37.0-47.0); Hemoglobin 12.4 g/dl (12.0-16.0); Imm Gran Abs Auto 0.02 X10*3/uL (0.00-0.03); Imm Gran Pct Auto 0.2 % (0.0-0.4); Mean Corpuscular HGB Conc 33.2 g/dl (31.0-35.0); Mean Corpuscular Hemoglobin 31.3 pg (27.0-33.0); Mean Corpuscular Volume 94.4 fL (80.0-98.0); Mean Platelet Volume 9.1 fL (9.4-12.3); Monocytes Absolute Auto 0.7 X10*3/uL (0.1-1.2); Monocytes Percent Auto 8.2 % (2-11); Neutrophils Absolute Auto 4.4 x10*3/uL (2.0-8.3); Neutrophils Percent Auto 52.6 % (45-73); Platelet Count 376 X10*3/uL (160-400); Red Blood Count 3.96 X10*6/uL (4.20-5.50); Red Cell Distribution Width 13.5 % (11.0-16.0); White Blood Count 8.4 X10*3/uL (4.8-10.8)
[2023-08-13 10:57] LABS: Alanine Aminotransferase 18 U/L (0-31); Albumin Level 4.1 g/dL (3.5-5.0); Alkaline Phosphatase 86 U/L (39-117); Anion Gap 11 (12-20); Aspartate Amino Transferase 23 U/L (5-31); Bilirubin Total 0.6 mg/dL (0.0-1.0); Blood Urea Nitrogen 14 mg/dL (9-16); Calcium 9.2 mg/dL (8.4-10.2); Carbon Dioxide 31 mmol/L (22-29); Chloride 102 mmol/L (96-108); Cholesterol 170 mg/dL (<200); Estimated Glomerular Filt Rate 60; Glucose Fasting 103 mg/dL (60-99); HDL Cholesterol 64 mg/dL (>40); LDL Cholesterol Calculated 91 mg/dL (<100); Potassium 3.8 mmol/L (3.3-5.1); Sodium 140 mmol/L (135-145); Total Protein 7.2 g/dL (6.5-8.0); Triglycerides 76 mg/dL (<150)
[2023-08-13 11:14] LABS: TSH reflex Free T4 1.84 uIU/mL (0.32-4.0); Vitamin D 25-OH Total 57.7 ng/mL (>30)
== END 2023-08-13 09:08 | disposition home or self-care (01) ==
LOC: HO.HMGCLDS 09:07
PROVIDERS: PCP Internal Medicine; Visit Provider Internal Medicine
DX: Z00.00 Encounter for general adult medical examination without abnormal findings (principal); I10 Essential (primary) hypertension; M54.16 Radiculopathy, lumbar region; E78.5 Hyperlipidemia, unspecified; E03.9 Hypothyroidism, unspecified; E55.9 Vitamin D deficiency, unspecified
CPT/HCPCS: 36415; 80053; 80061; 82306; 84443; 85025

== ENCOUNTER 2024-02-09 09:33 | Outpatient (AMB) | payer MEDICARE, SELFPAY ==
--- NOTE | 2024-02-09 09:50 | A.OFFPC_ITS ---
Vital Signs 02/09/24 09:51 Height 5 ft 6 in Weight 178 lb BMI 28.7 BP 110/74 Blood Pressure Location Lt brachial Position Sitting Pulse 57 Pulse Source Pulse Oximeter Pulse Oximetry (%) 100 Oxygen Delivery Method Room Air Intake Visit Reasons: 6 month follow up Intake Note: Pt is here today for 6 months follow up visit. Allergies lisinopril Allergy (Unknown, Verified 02/09/24 10:11) hyperkalemia amlodipine Adverse Reaction (Verified 02/09/24 10:11) swelling in hands and legs Medication List - Last Reconciled 02/09/24 by Anabella Lopez MD ascorbate calcium (vitamin C) 500 mg PO DAILY atorvastatin 10 mg PO DAILY baclofen 10 mg PO BEDTIME cholecalciferol (vitamin D3) 25 mcg PO DAILY gabapentin 600 mg PO BID hydrochlorothiazide 25 mg PO QAM ibuprofen 800 mg PO Q8H levothyroxine 112 mcg PO DAILY lidocaine 5% 1 ea topical BID lo-rxailwa-dyg-iron fm-FA-vitK 18 mg-400 mcg- 25 mcg (One-A-Day Women's Complete(with vit K)) tabs PO omeprazole 20 mg PO DAILY Tobacco use date assessed: 02/09/24 Fall risk assessment: No Falls in past year Last assessed Fall Risk: 02/09/24 Dental Screening Dental Screen Date: 02/09/24 Did you have a dental visit in the last 12 months?: Yes Did you have a dental problem in the last 6 months where you did not have access to dental care?: No Was dental information given to patient?: Patient has dentist HPI 6 month follow up HPI Details Patient presents for the follow-up on hypothyroidism hyperlipidemia hypertension controlled on current medications. She has been taking baclofen and gabapentin as needed for chronic lower back pain. She has been under lot of stress trying to sell her house and moving into an apartment. [facility] Medical History (Updated 02/09/24 @ 10:34 by Anabella Lopez MD) Vitamin D deficiency Normal pelvic exam Annual physical exam Leg edema Bacteriuria Hiatal hernia Hypothyroidism Hyperlipidemia Lumbar radiculopathy Surgical History History of esophagogastroduodenoscopy (EGD) H/O colonoscopy History of spinal surgery Family History Father No problems noted. Mother No problems noted. Social History Housing: House Alcohol intake: current Alcohol intake frequency: holidays/special occasions only Patient Tobacco Use Status: Never used Tobacco e-Cigarette/Vaping Use: Never Used service: No Current occupational status: retired Cognitive needs: No Hearing needs: No Vision needs: No Questionnaire PHQ-9 Over the last 2 weeks, how often have you been bothered by any of the following problems? 1. Little interest or pleasure in doing things: not at all 2. Feeling down, depressed, or hopeless: not at all 3. Trouble falling or staying asleep, or sleeping too much: not at all 4. Feeling tired or having little energy: not at all 5. Poor appetite or overeating: not at all 6. Feeling bad about yourself - or that you are a failure or have let yourself or your family down: not at all 7. Trouble concentrating on things, such as reading the newspaper or watching television: not at all 8. Moving or speaking so slowly that other people could have noticed. Or the opposite - being so fidgety or restless that you have been moving around a lot more than usual: not at all 9. Thoughts that you would be better off or of hurting yourself in some way: not at all Total score: 0 Depression Screening Interpretation: Negative Depression Screening Done: Yes 16250 - PHQ-9 Billing: Yes Source: Developed by Drs. Michael Cuevas, Mercedes Costello, Geraldo Hartley and colleagues, with an educational garima from [employer]. Thrive Questionnaire Date Thrive assessed: 02/09/24 I am a: Patient What is your living situation today?: I have a steady place to live Within the past 12 months, did the food you bought not last and you didn't have the money to get more?: I choose not to answer this question Within the past 12 months, did you worry whether your food would run out before you got money to buy more?: I choose not to answer this question Do you have trouble paying for medicines?: No Do you have trouble getting transportation to medical appointments?: No Do you have trouble paying your heating and electricity bill?: I choose not to answer this question Do you have trouble taking care of your child, family member or friend?: I choose not to answer this question Do you have trouble with day-to-day activities such as bathing, preparing meals, shopping, managing finances, etc.?: I choose not to answer this question Are you currently unemployed and looking for a job?: I choose not to answer this question Are you interested in more education?: I choose not to answer this question Please select the resources that you would like help with: None Currently or been in a relationship where the following occur: I choose not to answer THRIVE Score: 0 AUDIT C Alcohol Use Questionnaire (AUDIT-C) 1. How often do you have a drink containing alcohol?: Never 3. How often do you have six or more drinks on one occasion?: Never Total Score: 0 JUDY-7 AMB Questionnaire JUDY-7 Date JUDY - 7 assessed: 02/09/24 Feeling nervous, anxious, or on edge: 0 = Not at all Not being able to stop or control worryin = Not at all Worrying too much about different things: 0 = Not at all Trouble relaxin = Not at all Being so restless that it is hard to sit still: 0 = Not at all Becoming easily annoyed or irritable: 0 = Not at all Feeling afraid as if something awful might happen: 0 = Not at all Total JUDY-7 score (0-4 normal; 5-9 mild; 10-14 moderate; 15-21 severe): 0 Source: Developed by Drs. Michael Cuevas, Mercedes Costello, Geraldo Hartley and colleagues, with an educational garima from [employer]. JUDY-7 Assessment Billing JUDY-7 Assessment Tool: JUDY-7 Assessment 55549 Review of Systems Const All systems reviewed & are unremarkable except as noted in HPI and below ENT Reports no additional complaints Card Reports no additional complaints Resp Reports no additional complaints GI Reports no additional complaints Reports no additional complaints Physical exam (Primary Care) Vital Signs: Last Vital Signs Pulse 57 02/09/24 09:51 BP 110/74 02/09/24 09:51 Pulse Ox 100 02/09/24 09:51 Oxygen Delivery Method Room Air 02/09/24 09:51 BMI result Body Mass Index 28.7 Tobacco/Smoking Status: Tobacco use Status Tobacco use date assessed 02/09/24 02/09/24 10:17 Patient Tobacco Use Status Never used Tobacco 02/09/24 09:51 e-Cigarette/Vaping Use Never Used 02/09/24 09:51 PHQ-9: PHQ-9 Score PHQ-9: Total score 0 02/09/24 10:18 Depression Screening Interpretation: Negative Thrive Assessment: Date of Thrive Assessment Date Thrive assessed 02/09/24 02/09/24 10:17 Currently or been in a relationship where the following occur: I choose not to answer Const General: no acute distress HENMT Head: Yes normal to inspection Face and sinus: Yes normal facial exam Neck Neck: Yes supple Resp Effort & Inspection: normal respiratory effort Auscultation: clear to auscultation bilaterally Cardio Rhythm: regular rhythm Heart sounds: S1 normal heart sound present and S2 normal heart sound present Assessment and Plan Assessment & Plan (1) HTN (hypertension): Code(s): I10 - Essential (primary) hypertension Plan: Continue hydrochlorothiazide (2) Vitamin D deficiency: Code(s): E55.9 - Vitamin D deficiency, unspecified Plan: Continue vitamin-D supplement (3) Hypothyroidism: Comment: f/u with Endo Code(s): E03.9 - Hypothyroidism, unspecified Plan: Continue levothyroxine (4) Hyperlipidemia: Code(s): E78.5 - Hyperlipidemia, unspecified Plan: Continue statin, return for physical in 6 months Orders: Orders Lipid Panel 6 Months E03.9 - Hypothyroidism, unspecified, E55.9 - Vitamin D deficiency, unspecified, E78.5 - Hyperlipidemia, unspecified, I10 - Essential (primary) hypertension Complete Blood Count Auto Diff 6 Months E03.9 - Hypothyroidism, unspecified, E55.9 - Vitamin D deficiency, unspecified, E78.5 - Hyperlipidemia, unspecified, I10 - Essential (primary) hypertension Vitamin D 25-OH Total 6 Months E03.9 - Hypothyroidism, unspecified, E55.9 - Vitamin D deficiency, unspecified, E78.5 - Hyperlipidemia, unspecified, I10 - Essential (primary) hypertension Comprehensive [place]. Panel Fast 6 Months E03.9 - Hypothyroidism, unspecified, E55.9 - Vitamin D deficiency, unspecified, E78.5 - Hyperlipidemia, unspecified, I10 - Essential (primary) hypertension TSH reflex Free T4 6 Months E03.9 - Hypothyroidism, unspecified, E55.9 - Vitamin D deficiency, unspecified, E78.5 - Hyperlipidemia, unspecified, I10 - Essential (primary) hypertension Medications: New baclofen 10 mg PO BEDTIME 90 tabs 0RF Refilled omeprazole 20 mg PO DAILY 90 caps 3RF ibuprofen 800 mg PO Q8H 30 tabs 0RF Coding Level of Care Code Est Pt Level 4 (55644) Diagnoses HTN (hypertension) I10 Vitamin D deficiency E55.9 Hypothyroidism E03.9 Hyperlipidemia E78.5 Additional Codes JUDY-7 Assessment Billing - JUDY-7 Assessment Tool: JUDY-7 Assessment 17412 ([id number])
[2024-02-09 09:51] VITALS: BP 110/74; PULSE 57; O2SAT 100; BMI 28.7
== END 2024-02-09 10:39 | disposition home or self-care (01) ==
PROVIDERS: PCP Internal Medicine; Visit Provider Internal Medicine
DX: I10 Essential (primary) hypertension (principal); E55.9 Vitamin D deficiency, unspecified; E03.9 Hypothyroidism, unspecified; E78.5 Hyperlipidemia, unspecified

== ENCOUNTER → 2024-02-09 09:33 | Outpatient (BNVA) | payer MEDICARE, SELFPAY | PROVIDERS: PCP Internal Medicine; Visit Provider Internal Medicine | DX: E03.9 Hypothyroidism, unspecified (principal); E55.9 Vitamin D deficiency, unspecified; I10 Essential (primary) hypertension | CPT/HCPCS: 96127; 99212 ==

== ENCOUNTER 2024-03-22 13:40 | Outpatient (AMB) | payer MEDICARE, SELFPAY ==
[2024-03-22 14:09] VITALS: BP 118/72; PULSE 62; BMI 28.7
--- NOTE | 2024-03-22 14:09 | MHC.OFFVIS ---
Vital Signs 03/22/24 14:09 Height 5 ft 6 in Weight 178 lb 2.136 oz BMI 28.7 BP 118/72 Blood Pressure Location Lt brachial Position Sitting Pulse 62 Pulse Source Monitor Intake Visit Reasons: 1 year fu Auxiliary Operator Required: No Allergies lisinopril Allergy (Unknown, Verified 03/22/24 14:11) hyperkalemia amlodipine Adverse Reaction (Verified 03/22/24 14:11) swelling in hands and legs Medication List - Last Reconciled 03/23/24 by Malinda Mcclure NP-C ascorbate calcium (vitamin C) 500 mg PO DAILY atorvastatin 10 mg PO DAILY baclofen 10 mg PO BEDTIME cholecalciferol (vitamin D3) 25 mcg PO DAILY gabapentin 600 mg PO BID hydrochlorothiazide 25 mg PO QAM ibuprofen 800 mg PO Q8H levothyroxine 112 mcg PO DAILY lidocaine 5% 1 ea topical BID mm-wvhvvcc-ifp-iron fm-FA-vitK 18 mg-400 mcg- 25 mcg (One-A-Day Women's Complete(with vit K)) tabs PO omeprazole 20 mg PO DAILY trazodone 50 mg PO BEDTIME HPI HPI 1 year fu: Details: Maxine is a 78-year-old female with past medical history of hypertension, hyperlipidemia, abnormal EKG who presents for follow-up. Today she reports she has been feeling well overall since her last visit 03/21/2023. She denies any chest discomfort, shortness of breath, palpitations, presyncope, syncope, PND, orthopnea or edema. She believes her blood pressure is running too low. She is asking for a decrease in her hydrochlorothiazide dose. When she gets up in the night to urinate she has some lightheadedness. She takes her medications as directed [facility] Medical History Vitamin D deficiency Normal pelvic exam Annual physical exam Leg edema Bacteriuria Hiatal hernia Hypothyroidism Hyperlipidemia Lumbar radiculopathy Surgical History History of esophagogastroduodenoscopy (EGD) H/O colonoscopy History of spinal surgery Family History Father No problems noted. Mother No problems noted. Social History Housing: House Alcohol intake: current Alcohol intake frequency: holidays/special occasions only Patient Tobacco Use Status: Never used Tobacco e-Cigarette/Vaping Use: Never Used service: No Current occupational status: retired Cognitive needs: No Hearing needs: No Vision needs: No Review of Systems Const All systems reviewed & are unremarkable except as noted in HPI and below ENT Denies dizziness Card Denies chest pain, Denies chest pain at rest, Denies chest pain with activity, Denies rapid heart rate, Denies pedal edema, Denies edema, Denies leg edema, Denies lightheadedness, Denies palpitations, Denies dyspnea, Denies dyspnea on exertion and Denies orthopnea Resp Denies cough, Denies dyspnea and Denies dyspnea on exertion GI Denies hematochezia and Denies change in stool character Musc Denies abnormal gait, Denies limited range of motion, Denies muscle cramps, Denies muscle weakness, Denies numbness, Denies radiating pain into limb, Denies stiffness and Denies tingling Neuro Denies abnormal gait, Denies dizziness, Denies numbness and Denies tingling Endo Denies palpitations Physical Exam Vital Signs: Last Vital Signs Pulse 62 03/22/24 14:09 BP 118/72 03/22/24 14:09 BMI result Body Mass Index 28.7 Const General: cooperative, healthy appearing, comfortable and no acute distress Orientation/consciousness: patient oriented x3 Neck Neck: Yes normal visual inspection Resp Effort & Inspection: normal respiratory effort Auscultation: clear to auscultation bilaterally, no crackles, no rales, no rhonchi and no wheezes Cardio Jugular venous distension: no JVD Rate: regular rate Rhythm: regular rhythm Heart sounds: S1 normal heart sound present, S2 normal heart sound present, no murmurs and no rubs Neuro General: patient oriented x3 Extrem General: Yes normal to inspection and No no pedal edema Psych Appearance: grossly normal Mental Status: mental status grossly normal Speech and movement: Normal speech and movement present Office Procedures EKG Details: Today, read by me, normal sinus rhythm, low-voltage QRS, can not exclude prior anterior infarct, no significant change compared to prior EKG, rate 62, QTC 450 milliseconds [id number], Complete Assessment & Plan Assessment & Plan (1) Abnormal EKG: Code(s): R94.31 - Abnormal electrocardiogram [ECG] [EKG] Category: Medical Plan: EKGs abnormal, can not exclude inferior and anterior lateral MIs in the past. She denies any known history of known ME, heart disease. Echocardiogram done at [facility] 2020 showed EF 60-65%, no wall motion abnormalities, no significant valve abnormalities. EKG done at that time no significant change from current EKG. Nuclear stress test done in 2020 showed no significant perfusion defects. She did have low exercise capacity. On last visit she was evaluated and had no anginal symptoms. A repeat nuclear stress test was done on 02/11/2023 with exercise 5 minutes achieving heart rate 102% mphr, qwyw-pe-mugyxooh shortness of breath, no chest discomfort, no EKG changes and normal myocardial perfusion imaging. EKG done today showing normal sinus rhythm, can not exclude prior anterior infarct, rate 62. She continues to report no anginal sounding symptoms. Cardiac risk factor modification discussed. Signs and symptoms of angina reviewed. She would like to continue to follow with cardiology yearly. Cardiology follow-up in 1 year, sooner if needed (2) HTN (hypertension): Code(s): I10 - Essential (primary) hypertension Category: Medical Plan: Blood pressure is in the normal range. She tells me that her blood pressure had been high on 1 day and she went to urgent care and they increased her hydrochlorothiazide dose. Since then she has been noticing lower readings causing her some concern. She also reports some lightheadedness when she gets up in the night. Blood pressure today 118/72. She is asking to cut her hydrochlorothiazide dose down. Will reduce hydrochlorothiazide from 25 mg daily down to 12.5 mg daily. Instructed her to continue to monitor home blood pressures. If her systolic blood pressure is running greater than 140 she should increase her hydrochlorothiazide back to 25 mg daily. She will continue to follow with PCP as well. Plan Time spent on chart review, documentation, interview assessment Medications: New hydrochlorothiazide 12.5 mg PO QAM 90 tabs 1RF Discontinued hydrochlorothiazide Discontinued Reason: Doctor's Order 25 mg PO QAM 90 tabs 1RF Coding Level of Care Code Est Pt Level 3 (79305) Complex EM visit Add On G2211 Diagnoses Abnormal EKG R94.31 HTN (hypertension) I10 CPT Codes EKG - CPT: 89311-[id number], Complete ([id number]) Time Spent (min) 25
== END 2024-03-22 14:35 | disposition home or self-care (01) ==
LOC: HO.HCS 13:51
PROVIDERS: PCP Internal Medicine; Visit Provider Nurse Practitioner Family
DX: R94.31 Abnormal electrocardiogram [ECG] [EKG] (principal); I10 Essential (primary) hypertension
CPT/HCPCS: 93010; 99213; G2211

== ENCOUNTER → 2024-03-22 13:40 | Outpatient (BNVA) | payer MEDICARE, SELFPAY | PROVIDERS: PCP Internal Medicine; Visit Provider Nurse Practitioner Family | DX: I10 Essential (primary) hypertension (principal); E78.5 Hyperlipidemia, unspecified; R94.31 Abnormal electrocardiogram [ECG] [EKG] | CPT/HCPCS: 93005; 99212 ==

== ENCOUNTER 2024-04-12 11:38 | Outpatient (AMB) | payer MEDICARE, SELFPAY ==
--- OUTSIDE RECORDS SUMMARY | 2024-04-12 11:40 | XMS_ITS | Continuity of Care Document ---
Author Organization [facility] Address [address] [place] [id number]- Care Team Providers Care Bakery And Deli Sales Manager Name Role Phone Anabella Lopez MD Primary Care Physician [phone] Encounter [facility] [place] Date(s): 09/27/23 - 10/27/23 [facility] [address] [place] [id number] Allergies, Adverse Reactions, Alerts Substance Reaction Severity Status amLODIPine 1 Active 1edema Medications acetaminophen-hydrocodone 325 mg-5 mg oral tablet 1 tablet, By Mouth, Every 6 hours, 0 Refills, Maintenance, 10/27/14 8:33:32 Start Date: 10/27/14 Status: Ordered amlodipine 5 mg oral tablet 1 tablet = 5 mg, By Mouth, Daily, # 30 tablet, 0 Refills, Maintenance, 10/27/14 8:33:04, Tablet Start Date: 10/27/14 Status: Ordered atorvastatin 10 mg oral tablet 1 tablet = 10 mg, By Mouth, Daily, 0 Refills, Maintenance, 03/26/21 15:11:00 EST, Partial fill uponpatient request if the prescription is for a schedule II opioid drug. Start Date: 03/26/21 Status: Ordered gabapentin 600 mg oral tablet 1 tablet = 600 mg, By Mouth, 3 times a day, # 270 tablet, 0 Refills, Maintenance, 10/27/14 8:32:44,Tablet Start Date: 10/27/14 Status: Ordered levothyroxine 0.112 mg oral tablet 1 tablet = 112 mcg, By Mouth, Daily, # 90 tablet, 3 Refills, Maintenance, 09/23/23 8:33:00 EDT, Tablet, [id number], 164.5, cm, 09/23/23 8:04:00 EDT, Height, 78.2, kg, 04/01/23 9:55:00 EST,Dry Weight Start Date: 09/23/23 Status: Ordered lisinopril 5 mg oral tablet 1 tablet = 5 mg, By Mouth, Daily, 0 Refills, Maintenance, 02/21/15 9:32:34 Start Date: 02/21/15 Status: Ordered Multivitamin Daily, 0 Refills, Maintenance, 03/26/21 15:12:00 EST, Partial fill upon patient request if the prescription is for a schedule II opioid drug. Start Date: 03/26/21 Status: Ordered Omeprazole = 20 mg, By Mouth, Daily, 0 Refills, Maintenance, 10/09/10 16:49:32 Start Date: 10/09/10 Status: Ordered pravastatin 10 mg oral tablet 1 tablet = 10 mg, By Mouth, Daily, # 30 tablet, 0 Refills, Maintenance, 10/27/14 8:32:28, Tablet Start Date: 10/27/14 Status: Ordered Probiotic Formula By Mouth, Daily, 0 Refills, Maintenance, 03/26/21 15:12:00 EST, Partial fill upon patient request if the prescription is for a schedule II opioid drug. 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 Physician - Primary Care Member Role: PCP Address: Address: [address] [place] [address]- Care Team Related Persons Name: GLORIA LR Address: home [address] [place] [id number]
--- OUTSIDE RECORDS SUMMARY | 2024-04-12 11:40 | XMS_ITS | Continuity of Care Document ---
Author Organization [facility] Address [address] [place] [address]- Care Team Providers Care Ship Fitter Name Role Phone Anabella Lopez MD Primary Care Physician [phone] Encounter [facility] [place] Date(s): 03/27/21 - 06/20/21 [facility] [address] [place] [address]- Attending Physician: Valdez Duke MD Admitting Physician: Valdez Duke MD Referring Physician: Valdez Duke MD Allergies, Adverse Reactions, Alerts Substance Reaction Severity [...] 8:32:44,Tablet Start Date: 10/27/14 Status: Ordered levothyroxine 137 mcg (0.137 mg) oral capsule 1 capsule = 137 mcg, By Mouth, Daily, 0 Refills, Maintenance, 01/26/18 9:22:44 EDT Start Date: 01/26/18 Status: Ordered lisinopril 5 mg oral tablet [...] 10/27/14 8:32:16 Start Date: 10/27/14 Status: Ordered Vitamin D and K oral tablet 0 Refills, Maintenance, 03/26/21 15:12:00 EST, Partial fill upon patient request if the prescription is for a schedule II opioid drug. Start Date: 03/26/21 Status: Ordered Problem List Condition Effective Dates Status Health Status Inform ant Arthritis(Confirmed) Active Celiac Disease(Confirmed) Active GERD - Gastro-esophageal ref lux disease(Confirmed) Active Hypothyroidism(Confirmed) Active Lumbar herniated disc L4-L5(Confirmed) Active Social History Social History Type Response Smoking Status Never smoker entered on: 08/18/13 Sex
--- OUTSIDE RECORDS SUMMARY | 2024-04-12 11:40 | XMS_ITS | Continuity of Care Document ---
Author Organization [facility] Address [address] [place] [address]- Care Team Providers Care Mental Health Nurse Name Role Phone Anabella Lopez MD Primary Care Physician En[place] [facility] [place](s): 11/21/22 - 12/21/22 [facility] [address] [place] [id number] Attending Physician: Shilo Thomas Admitting Physician: AdmShilo jones Referring Physician: Admtr ArIman Allergies, Adverse Reactions, Alerts Substance Reaction Severity [...] mcg, By Mouth, Daily, # 90 tablet, 2 Refills, Maintenance, 09/27/22 8:10:00 EDT, Tablet, [id number], Partial fill upon patient request if the prescription is for a schedule II opioid drug., 172.72, cm, 09/24/22 8:19:00 EDT, H... Start Date: 09/27/22 Status: Ordered levothyroxine 0.137 mg oral tablet See Instructions, 1 tablet By Mouth Daily except once a week only 1/2 tablet., # 84 tablet, 3 Refills, Maintenance, 09/24/21 10:03:00 EDT, Tablet, [facility], 172.72, cm, 09/24/21 9:08:00 EDT, Height Start Date: 09/24/21 Status: Ordered levothyroxine 137 mcg (0.137 mg) [...] Date: 03/26/21 Status: Ordered Problem List Condition Confirmation Course Effective Dates Status H ealth Status Informant Arthritis Confirmed Active Celiac Disease Confirmed Active GERD - Gastro-esophageal reflux disease Confirmed Active Hypothyroidism Confirmed Active Lumbar herniated disc L4-L5 Confirmed Active Multinodular goiter (nontoxic) Confirmed Active Social History Social History Type Response Smoking Status Never smoker entered on: 08/18/13 Sex Patient Care team information Care Team Personnel Name: Anabella Lopez MD Position: [facility] Physician - Primary Care Member Role: PCP Address: Address: [address] [place] [address]- Care Team Related Persons Name: GLORIA LR Address: [address] [place] [address]
--- OUTSIDE RECORDS SUMMARY | 2024-04-12 11:40 | XMS_ITS | Continuity of Care Document ---
Author Organization [facility] Address [address] [place] [phone]- Care Team Providers Care Sales Order Administrator Name Role Phone Anabella Lopez MD Primary Care Physician [phone] Encounter [facility] [place] Date(s): 09/30/23 - 10/30/23 [facility] [address] [place] [email or web address] Allergies, Adverse Reactions, Alerts Substance Reaction Severity [...] 3 Refills, Maintenance, 09/23/23 8:33:00 EDT, Tablet, [facility], 164.5, cm, 09/23/23 8:04:00 EDT, [...] Team Personnel Name: Anabella Lopez MD Position: [facility] Physician - Primary Care Member Role: PCP Address: Address: [address] [place] [address]- Care Team Related Persons Name: GLORIA LR Address: home [address] [place] [id number]
--- OUTSIDE RECORDS SUMMARY | 2024-04-12 11:40 | XMS_ITS | Continuity of Care Document ---
Author Organization [facility] Address [address] [place] [address]- Care Team Providers Care Back Digger Operator Name Role Phone Anabella Lopez MD Primary Care Physician Encounter [facility] [place] Date(s): 11/27/22 - 12/27/22 [facility] [address] [place] [id number] Allergies, Adverse Reactions, Alerts Substance Reaction Severity [...] 2 Refills, Maintenance, 09/27/22 8:10:00 EDT, Tablet, [id number], Partial fill upon patient request if the prescription is for a schedule II opioid drug., 172.72, cm, 09/24/22 8:19:00 EDT, H... Start Date: 09/27/22 Status: Ordered levothyroxine 0.137 mg oral tablet See Instructions, 1 tablet By Mouth Daily except once a week only 1/2 tablet., # 84 tablet, 3 Refills, Maintenance, 09/24/21 10:03:00 EDT, Tablet, [facility], 172.72, cm, 09/24/21 9:08:00 EDT, [...] Team Personnel Name: Anabella Lopez MD Position: S Physician - Primary Care Member Role: PCP Address: Address: [address] [place] [address]- Care Team Related Persons Name: GLORIA LR Address: [address] [address]
--- OUTSIDE RECORDS SUMMARY | 2024-04-12 11:40 | XMS_ITS | Continuity of Care Document ---
Author Organization [facility] Address [address] [place] [address]- Care Team Providers Care German Teacher Name Role Phone Anabella Lopez MD Primary Care Physician Encounter [place] Date(s): 11/21/22 - 06/01/23 [facility] [address] [place] [id number] [[email or web address]] Discharge Disposition: A-D/C Home Attending Physician: Gonsalo Sinclair MD Admitting Physician: Gonsalo Sinclair MD Referring Physician: Anabella Lopez MD Allergies, Adverse Reactions, Alerts Substance Reaction [...] 2 Refills, Maintenance, 09/27/22 8:10:00 EDT, Tablet, [id number], Partial fill upon patient request if the prescription is for a schedule II opioid drug., 172.72, cm, 09/24/22 8:19:00 EDT, H... Start Date: 09/27/22 Status: Ordered lisinopril 5 mg oral tablet [...] Confirmed Active Multinodular goiter (nontoxic) Confirmed Active Vital Signs Most recent to oldest [Reference Range]: 1 2 Height 164.5 cm (04/01/23 9:55 AM) 164.5 cm (01/07/23 2:16 PM) Weight 78.2 kg (04/01/23 9:55 AM) 79.9 kg (01/07/23 2:16 PM) Oxygen Saturation [94-100 %] 94 % (04/01/23 9:55 AM) 98 % (01/07/23 2:16 PM) Pulse Rate [55-90 bpm] 72 bpm (04/01/23 9:55 AM) 83 bpm (01/07/23 2:16 PM) Body Mass Index [18.5-24.99 kg/m2] 28.9 kg/m2 *H* (04/01/23 9:55 AM) 29.53 kg/m2 *H* (01/07/23 2:16 PM) Blood Pressure [90-138/55-84 mm Hg] 145/ 81mm Hg *H* (04/01/23 9:55 AM) 155/89mm Hg *H* (01/07/23 2:16 PM) Temperature [96.8-100.4 DegF] 78.2 DegF *L* (04/01/23 9:55 AM) 98.2 DegF (01/07/23 2:16 PM) Mode of Delivery (Oxygen) Room air (04/01/23 9:55 AM) Room air (01/07/23 2:16 PM) Blood pressure sites Arm, right (04/01/23 9:55 AM) Arm, right (01/07/23 2:16 PM) Temperature Route Oral (04/01/23 9:55 AM) Temporal (01/07/23 2:16 PM) Dry Weight 78.2 kg (04/01/23 9:55 AM) 79.9 kg (01/07/23 2:16 PM) Weight Obtained Via Standing scale (04/01/23 9:55 AM) Standing scale (01/07/23 2:16 PM) Dry Weight Obtained Via Standing scale (04/01/23 9:55 AM) Standing scale (01/07/23 2:16 PM) Social History Social History Type Response Smoking Status Never smoker entered on: 08/18/13 Sex Laboratory * Event Display: Non BH Lab Results Authored Date: * Event Display: Non BH Lab Results Authored Date: Note * Silvana Chaidez: PERFORM, SIGN, VERIFY Event Display: Patient Education/Instruction Authored Date: [id number] [facility] *Heme/Onc Adult Clinical Summary Name ROSALIO LR Age 77 Years 1945 PCP Anabella Lopez MD PCP Visit Date 11/21/2022 15:43:00 Additional Instructions: Scheduled Appointments?? Future Appointments ?No Future Appointments Scheduled Follow-Up Instructions ?? With: Address: When: JUSTIN With: Address: When: Todd Rain [address] [place] [address] [facility] (1) 01/21/2023 10:45 AM Diagnosis Medications: Please continue your medications until treatment is completed or stopped by your provider. Discuss any questions related to medications with your provider. Medications to Continue Taking That Have Changed These medications were not printed or sent to your pharmacy - Levothyroxine (levothyroxine 0.112 mg oral tablet) 1 tab(s) Oral Daily. Refills: 2. Next Dose: - Levothyroxine (Synthroid) 150 Microgram Oral Daily. Next Dose: - Multivitamin Daily. Next Dose: Medications to Continue with No Changes These medications were not printed or sent to your pharmacy Acetaminophen / Hydrocodone (acetaminophen-hydrocodone 325 mg-5 mg oral tablet) 1 tab(s) Oral every6 hours. Next Dose: Amlodipine (amlodipine 5 mg oral tablet) 1 tab(s) Oral Daily. Next Dose: Atorvastatin (atorvastatin 10 mg oral tablet) 1 tab(s) Oral Daily. Next Dose: bifidobacterium-lactobacillus (Probiotic Formula) Oral Daily. Next Dose: Gabapentin (gabapentin 600 mg oral tablet) 1 tab(s) Oral 3 times a day. Next Dose: Lisinopril (lisinopril 5 mg oral tablet) 1 tab(s) Oral Daily. Next Dose: Omeprazole 20 Milligram Oral Daily. Next Dose: Pravastatin (pravastatin 10 mg oral tablet) 1 tab(s) Oral Daily. Next Dose: Allergy Info:?? amLODIPine Medications Given This Visit Future Orders ?No future orders Vital Signs Height 164.5 cm Weight 78.2 kg BMI 28.9 kg/m2 Blood Pressure 145 mm Hg/81 mm Hg Temperature 78.2 DegF Pulse Rate 72 bpm Respiratory Rate 02 Sat Mode of Delivery 94 %/Room air You can now view a summary of your hospital visit from the comfort of your home through a free online portal called Ahead. Ahead is a website that allows you to securely view your medical information including discharge summary, medications and follow-up visits. ??You can alsosend a secure electronic message to your doctor???s office to request appointments, renew medications or just ask a question. You can enroll at [email or web address] or register during your next office visit. Disclaimer:?? The information provided is of a general nature and is intended to be used in conjunction with the recommendations and advice of your health care practitioner. ??Every effort has been made to ensure that the information provided is accurate and complete at the time it is provided to you however, as your needs change, or, as new ??information becomes available, different or additional instructions may be required. If you have questions, please consult with your primary care provider or pharmacist, as appropriate. ??This information is not intended to serve as substitution for assessment and evaluation by a qualified health care provider. If you do not have a primary care provider, you may find a [facility] provider by calling [facility] [employer] [facility] at [phone]. [facility], in keeping with [facility] guidance, no longer requires face masks for staff, patientsor visitors in most situations. Similar to time spent indoors at other locations, there is the chance that you were exposed to respiratory viruses during your time with us (such as flu or COVID-19).? If you develop symptoms concerning for a viral respiratory infection, please seek testing (and treatment if indicated) from your medical provider or home test kit. For information about the plan of care including goals and instructions for your diagnosis, please see the patient education orders section of this document. Patient Education Materials?? The content of this educational material or handout may have been modified, supplemented, or adapted from its original content and format to support your individualized medical care. * Silvana Chaidez: PERFORM, SIGN, VERIFY Event Display: Patient Education/Instruction Authored Date: [id number] [facility] *Heme/Onc Adult Clinical Summary Name ROSALIO LR Age 77 Years 1945 PCP Anabella Lopez MD PCP Visit Date 11/21/2022 15:43:00 Additional Instructions: Scheduled Appointments?? Future Appointments ?No Future Appointments Scheduled Follow-Up Instructions ?? With: Address: When: Todd Koffi [address] [place] [id number] [facility] (1) 01/21/2023 10:45 AM Diagnosis Medications: Please continue your medications until treatment is completed or stopped by your provider. Discuss any questions related to medications with your provider. Medications to Continue Taking That Have Changed These medications were not printed or sent to your pharmacy - Levothyroxine (levothyroxine 0.112 mg oral tablet) 1 tab(s) Oral Daily. Refills: 2. Next Dose: - Levothyroxine (Synthroid) 150 Microgram Oral Daily. Next Dose: - Multivitamin Daily. Next Dose: Medications to Continue with No Changes These medications were not printed or sent to your pharmacy Acetaminophen / Hydrocodone (acetaminophen-hydrocodone 325 mg-5 mg oral tablet) 1 tab(s) Oral every6 hours. Next Dose: Amlodipine (amlodipine 5 mg oral tablet) 1 tab(s) Oral Daily. Next Dose: Atorvastatin (atorvastatin 10 mg oral tablet) 1 tab(s) Oral Daily. Next Dose: bifidobacterium-lactobacillus (Probiotic Formula) Oral Daily. Next Dose: Gabapentin (gabapentin 600 mg oral tablet) 1 tab(s) Oral 3 times a day. Next Dose: Lisinopril (lisinopril 5 mg oral tablet) 1 tab(s) Oral Daily. Next Dose: Omeprazole 20 Milligram Oral Daily. Next Dose: Pravastatin (pravastatin 10 mg oral tablet) 1 tab(s) Oral Daily. Next Dose: Allergy Info:?? amLODIPine Medications Given This Visit Future Orders ?No future orders Vital Signs Height 164.5 cm Weight 79.9 kg BMI 29.53 kg/m2 Blood Pressure 155 mm Hg/89 mm Hg Temperature 98.2 DegF Pulse Rate 83 bpm Respiratory Rate 02 Sat Mode of Delivery 98 %/Room air You can now view a summary of your hospital visit from the comfort of your home through a free online portal called Ahead. Ahead is a website that allows you to securely view your medical information including discharge summary, medications and follow-up visits. ??You can alsosend a secure electronic message to your doctor???s office to request appointments, renew medications or just ask a question. You can enroll at [email or web address] or register during your next office visit. Disclaimer:?? The information provided is of a general nature and is intended to be used in conjunction with the recommendations and advice of your health care practitioner. ??Every effort has been made to ensure that the information provided is accurate and complete at the time it is provided to you however, as your needs change, or, as new ??information becomes available, different or additional instructions may be required. If you have questions, please consult with your primary care provider or pharmacist, as appropriate. ??This information is not intended to serve as substitution for assessment and evaluation by a qualified health care provider. If you do not have a primary care provider, you may find a [facility] provider by calling [facility] [employer] at [phone]. For information about the plan of care including goals and instructions for your diagnosis, please see the patient education orders section of this document. Patient Education Materials?? The content of this educational material or handout may have been modified, supplemented, or adapted from its original content and format to support your individualized medical care. Patient Care team information Care Team Personnel Name: Anabella Lopez MD Position: [facility] Physician - Primary Care Member Role: PCP Address: Address: [address] [place] [address]- Name: Gonsalo Sinclair MD Position: [facility] Physician - Oncology Med Service: Hematology & Oncology Member Role: Admitting Physician Address: Address: [address] [place] [address] [place] [address]- Care Team Related Persons Name: GLORIA LR Address: [address] [address]
--- OUTSIDE RECORDS SUMMARY | 2024-04-12 11:40 | XMS_ITS | Continuity of Care Document ---
Author Organization [facility] Address [address] [place] [address]- Care Team Providers Care Xerox Machine Mechanic Name Role Phone Anabella Lopez MD Primary Care Physician [phone] [place] [facility] [place] 03/03/21 [facility] [address] [place] [address]- Allergies, Adverse Reactions, Alerts Substance Reaction Severity Status amLODIPine 1 Active 1edema Medications acetaminophen-hydrocodone 325 mg-5 mg oral tablet 1 tablet, By Mouth, Every 6 hours, 0 Refills, Maintenance, 10/27/14 8:33:32 Start Date: 10/27/14 Status: Ordered amlodipine 5 mg oral tablet 1 tablet = 5 mg, By Mouth, Daily, # 30 tablet, 0 Refills, Maintenance, 10/27/14 8:33:04, Tablet Start Date: 10/27/14 Status: Ordered gabapentin 600 mg oral tablet [...] 02/21/15 9:32:34 Start Date: 02/21/15 Status: Ordered Omeprazole = 20 mg, By Mouth, Daily, 0 Refills, Maintenance, 10/09/10 16:49:32 Start Date: 10/09/10 Status: Ordered pravastatin 10 mg oral tablet 1 tablet = 10 mg, By Mouth, Daily, # 30 tablet, 0 Refills, Maintenance, 10/27/14 8:32:28, Tablet Start Date: 10/27/14 Status: Ordered Synthroid 150 mcg, By Mouth, Daily, Maintenance, 10/27/14 8:32:16 Start Date: 10/27/14 Status: Ordered Problem List Condition Effective Dates Status Health Status Inform ant Arthritis(Confirmed) Active Celiac Disease(Confirmed) Active GERD - Gastro-esophageal ref lux disease(Confirmed) Active Hypothyroidism(Confirmed) Active Lumbar herniated disc L4-L5(Confirmed) Active Social History Social History Type Response Smoking Status Never smoker entered on: 08/18/13 Sex
--- OUTSIDE RECORDS SUMMARY | 2024-04-12 11:40 | XMS_ITS | Continuity of Care Document ---
Author Organization [facility] Address [address] [place] [address]- Care Team Providers Care Milk Condenser Name Role Phone Aanbella Lopez MD Primary Care Physician Encounter [facility] Date(s): 10/25/21 - 11/24/21 [facility] [address] [place] [id number] Attending Physician: Shilo Thomas Admitting Physician: AdmtrShilo Referring Physician: Admtr, ArIman Allergies, Adverse Reactions, Alerts Substance Reaction [...] 8:32:44,Tablet Start Date: 10/27/14 Status: Ordered levothyroxine 0.137 mg oral tablet See Instructions, 1 tablet By Mouth Daily except once a week only 1/2 tablet., # 84 tablet, 3 Refills, Maintenance, 09/24/21 10:03:00 EDT, Tablet, [facility], 172.72, cm, 09/24/21 9:08:00 EDT, [...]
--- OUTSIDE RECORDS SUMMARY | 2024-04-12 11:40 | XMS_ITS | Continuity of Care Document ---
Author Organization [facility] Address [address] [place] [address]- Care Team Providers Care Bilingual Teacher Aide Name Role Phone Anabella Lopez MD Primary Care Physician [phone] [place] [facility] [place](s): 05/21/21 - 06/20/21 [facility] [address] [place] [address]- Attending Physician: Shilo Thomas Admitting Physician: Shilo Thomas Referring Physician: AdmtrShilo Allergies, Adverse Reactions, Alerts Substance Reaction Severity [...]
--- OUTSIDE RECORDS SUMMARY | 2024-04-12 11:40 | XMS_ITS | Continuity of Care Document ---
Author Organization [facility] ancer Care Address [address] [place] [address]- Care Team Providers Care Rn Liaison Name Role Phone Anabella Lopez MD Primary Care Physician [phone] [place] [facility] [place](s): 01/22/23 - 02/21/23 [facility] [address] [place] [address] Allergies, Adverse Reactions, Alerts Substance [...] 2 Refills, Maintenance, 09/27/22 8:10:00 EDT, Tablet, [facility], Partial fill upon patient request if the [...] Team Personnel Name: Anabella Lopez MD [facility] - Primary Care Member Role: PCP Address: Address: [address] [place] [address]- Care Team Related Persons Name: GLORIA LR Address: home [address] [place] [id number]
--- OUTSIDE RECORDS SUMMARY | 2024-04-12 11:40 | XMS_ITS | Continuity of Care Document ---
Author Organization [facility] ancer [facility] Address [address] [place] [address]- Care Team Providers Care Powerhouse Mechanic Supervisor Name Role Phone Anabella Lopez MD Primary Care Physician [phone] En[place] [facility] [place] Date(s): 01/13/23 - 02/12/23 [facility] [address] [place] [id number] Allergies, Adverse Reactions, Alerts Substance Reaction [...] 2 Refills, Maintenance, 09/27/22 8:10:00 EDT, Tablet, [facility], Partial fill upon patient request if the [...] Team Personnel Name: Anabella Lopez MD Position: [facility] Physician - Primary Care Member Role: PCP Address: Address: [address] [place] [address]- Care Team Related Persons Name: GLORIA LR Address: home [address] [place] [address]
[2024-04-12 12:37] VITALS: BP 124/70; PULSE 57; O2SAT 97; BMI 28.3
--- NOTE | 2024-04-12 12:37 | AM.OFFWIN_ITS ---
Intake Vital Signs 04/12/24 12:37 Height 5 ft 6 in Weight 175 lb 4 oz BMI 28.3 BP 124/70 Blood Pressure Location Rt brachial Position Sitting Pulse 57 Pulse Source Pulse Oximeter Pulse Oximetry (%) 97 Oxygen Delivery Method Room Air Intake Visit Reasons: EP Pain on LT leg Intake Note: Patient here for leg leg pain that starts from hip area and radiates down the leg and has been present for about 1 week. Patient Tobacco Use Status: Never used Tobacco Allergies lisinopril Allergy (Unknown, Verified 04/12/24 12:46) hyperkalemia amlodipine Adverse Reaction (Verified 04/12/24 12:46) swelling in hands and legs Do you need a note to return to daycare/school/sports/work: No HPI HPI Comments History of Present Illness Details History of Present Illness The patient is a 78-year-old female presenting with left leg pain. She reports the onset of significant pain approximately one week ago, describing it as a dull, achy sensation in the leg, exacerbating with movement. The pain radiates from the inner thigh and is described as persistent, worsening over time. The patient denies any recent injuries or pulling of muscles that may have initiated the pain. She has a history of lumbar spine surgeries, totaling five operations, but reports no new back pain accompanying the current issue. Initial attempts at alleviation included the use of baclofen, which provided minimal relief. She has also used ibuprofen sparingly, due to concerns about potential kidney effects, despite it providing partial alleviation when taken. There have been no signs of other complications such as swelling, discoloration of the leg, or issues indicative of deep vein thrombosis, which include acute onset, color change, localized tenderness, or warmth. The patient has no notable history of blood clots, smoking, cancer, travel, immobility, or family history of blood clots. Additionally, she denies any signs of neurological impact such a s bowel or bladder dysfunction. [facility] Medical History Vitamin D deficiency Normal pelvic exam Annual physical exam Leg edema Bacteriuria Hiatal hernia Hypothyroidism Hyperlipidemia Lumbar radiculopathy Surgical History History of esophagogastroduodenoscopy (EGD) H/O colonoscopy History of spinal surgery Family History Father No problems noted. Mother No problems noted. Social History Housing: House Alcohol intake: current Alcohol intake frequency: holidays/special occasions only Patient Tobacco Use Status: Never used Tobacco e-Cigarette/Vaping Use: Never Used service: No Current occupational status: retired Cognitive needs: No Hearing needs: No Vision needs: No Review of Systems Const All systems reviewed & are unremarkable except as noted in HPI and below Physical Exam Vital Signs: Last Vital Signs Pulse 57 04/12/24 12:37 BP 124/70 04/12/24 12:37 Pulse Ox 97 04/12/24 12:37 Oxygen Delivery Method Room Air 04/12/24 12:37 BMI result Body Mass Index 28.3 Const General: cooperative, healthy appearing, comfortable and no acute distress Orientation/consciousness: patient oriented x3 Limitations: no limitations HEENT Head: Yes normal to inspection Resp Effort & Inspection: normal respiratory effort and able to speak in complete sentences Neuro General: patient oriented x3 Extrem Left lower extremity: normal to inspection, full ROM, normal capillary refill, hip/thigh Details: normal to inspection and normal ROM; no tenderness and no swelling and lower leg (Negative Homans sign) Details: normal to inspection and no edema; no tenderness, no abrasions, no lacerations, no ecchymosis, no deformity and no unusual warmth; no edema Assessment & Plan Assessment & Plan (1) Leg pain, left: Code(s): M79.605 - Pain in left leg Plan: An ultrasound of the leg was emergently arranged to rule out any underlying thrombosis concerns, particularly deep vein thrombosis, though the likelihood of DVT is considered low. Due to patients age, cannot PERC out. US LE done today which ruled out left leg DVT. Therefore this is likely musculoskeletal pain, the immediate plan is to consider a diagnosis of muscular strain. The patient was advised to continue with ibuprofen, 600 mg every 6 hours over the next 3 days to manage pain and inflammation. Additionally, baclofen can be continued for muscle relaxation at nighttime. No further immediate interventions are planned, but a follow-up with the primary care physician, Dr. Cichon, is recommended should the symptoms persist or worsen. Patient was informed and verbally consented to the use of an ambient scribe for clinic note documentation during this visit. Orders: Orders US venous duplex LE LT Today M79.605 - Pain in left leg Coding Level of Care Code Est Pt Level 4 (89330) Diagnoses Leg pain, left M79.600
== END 2024-04-12 13:57 | disposition home or self-care (01) ==
PROVIDERS: PCP Internal Medicine; Visit Provider Physician Assistant
DX: M79.605 Pain in left leg (principal)

== ENCOUNTER 2024-04-12 13:21 | Outpatient (REF) | payer MEDICARE, SELFPAY ==
--- NOTE | ~2024-04-12 | US_ITS ---
EXAMINATION: US TRIPLEX LOWER EXTREMITY, LEFT CLINICAL INFORMATION: Pain in left leg COMPARISON: DVT ultrasound May 01, 2021 TECHNIQUE: Color-flow triplex imaging with spectral analysis and compression Doppler were performed on the left lower extremity. FINDINGS: Respiratory variation, normal compression and augmented flow are noted throughout the left lower extremity. The visualized common femoral vein, superficial femoral vein, profunda femoral vein, popliteal vein and midcalf peroneal and posterior tibial venous segments show no evidence of deep venous thrombosis. There is no Carrillo's cyst. US/US venous duplex LE LT IMPRESSION: No evidence of deep venous thrombosis involving the left lower extremity. Electronically signed by: David Monteiro MD 04/12/2024 01:52 PM EST
== END 2024-04-12 13:22 | disposition home or self-care (01) ==
LOC: HO.HMGCX 13:21
PROVIDERS: PCP Internal Medicine; Visit Provider Physician Assistant
DX: M79.605 Pain in left leg (principal)
CPT/HCPCS: 93971; 99212

== ENCOUNTER 2024-06-12 12:03 | Outpatient (REF) | payer MEDICARE, SELFPAY ==
--- OUTSIDE RECORDS SUMMARY | 2024-06-12 12:06 | XMS_ITS ---
Author Organization [facility] Address [address] [facility] [address] [place] [id number] Care Team Providers Care Care Professional Name Role Phone Anabella Lopez MD Primary Care Provider Kera Choudhary Unavailable [phone] Allergies No Known Allergies REASON FOR VISIT MEDICARE PE, Annual SIGN LETTERER Physical 60-85+ Medications Medication SIG (Take, Route, Frequency, Duration) Notes Start Date End Date Status Estradiol Vaginal Cream 0.01% 1 Gram along vulva & intravaginally Twice a week for 90 days 04/30/2021 Not-Taking Clobetasol Propionate 0.05 % 1 application to affected area Externally once a night for 30 days 04/30/2021 Not-[place] ing Atorvastatin Calcium 10 MG TAKE 1 TABLET BY MOUTH ONCE DAILY Oral for 90 Active Estradiol Vaginal Cream 0.01% 1 Gram to the affected area Vaginal/Vulva Twice a week for 90 Days 05/05/2023 Active Lisinopril 5 MG TAKE 1 TABLET BY CHANDRAKANT TH ONCE DAILY Oral for 30 Active Clobetasol Propionate 0.05 % 1 application to affected area Externally EVERY OTHER NIGHT for 90 DAYS 05/05/2023 Active Levothyroxine Sodium 137 MCG 1 tablet in the morning on an empty stomach Orally Once a day Active Social History Tobacco Use: Social History Observation Description Date Details (start date - stop date) Never Smoker NA - NA Tobacco Use/Smoking Question Answer Notes Are you a nonsmoker Vital Signs Temperature 97.1 degrees Fahrenheit 05/05/20 23 Blood pressure systolic 112 mm Hg 05/05/20 23 Blood pressure diastolic 72 mm Hg 023 Height 67.5 in 05/05/2023 Weight 169 lbs 05/05/2023 BMI 26.08 kg/m2 05/05/2023 Encounters Encounter Location Date Provider Diagnosis [facility] [address] [facility] [address] [place] [address] 05/05/2023 Kera Waldron Encounter for gynecological examination (general) (routine) without abnormal findings Z01.419 ; Encounter for screening mammogram for malignant neoplasm of breast Z12.31 ; Lichen sclerosus et atrophicus L90.0 and Atrophy of vulva N90.5 Assessments Encounter Date Diagnosis (ICD Code) Assessment Notes Treatment Notes Treatment Clinical Notes Section Notes 05/05/2023 Encounter for gynecological examination (general) (routine) without abnormal findings (ICD-10 - Z01.419) NO MORE PAP TESTS. 05/05/2023 Encounter for screening mammogram for malignant neoplasm of breast (ICD-10 - Z12.31) REGULAR MAMMOGRAMS AND SBE'S WERE RECOMMENDED. 05/05/2023 Lichen sclerosus et atrophicus (ICD-10 - L90.0) DISCUSSED FINDINGS AND SHOWED PAT RECURRENCE OF LESIONS USING A HAND MIRROR. APPLY CLOBETASOL OINTMENT Q OTHER NIGHT FOR 4 TO 6 WEEKS. CHECK VULVA Q 4 WEEKS AND INCREASE OR DECREASE DOSE NEEDED. RTO IN 4 TO 6 WEEKS. 05/05/2023 Atrophy of vulva (ICD-10 - N90.5) DISCUSSED VULVAR ATROPHY AND THINNIING OF SKIN. APPLY ESTRADIOL CREAM TWICE WEEKLY. RX AND INSTRUCTIONS WERE GIVEN. Plan Of Treatment Medication Medication Name Sig Start Date Stop Date Notes Estradiol Vaginal Cream 0.01% 1 Gram to the affected area Vaginal/Vulva Twice a week for 90 Days 05/05/2023 Clobetasol Propionate 0.05 % 1 applicati on to affected area Externally EVERY OTHER NIGHT for 90 DAYS 05/05/2023 Treatment Notes Assessment Notes Encounter for gynecological examination (general) (routine) without abnormal findings NO MORE PAP TESTS. Encounter for screening mamm ogram for malignant neoplasm of breast REGULAR MAMMOGRAMS AND SBE'S WERE RECOMMENDED. Lichen sclerosus et atrophicus DISCUSSED FINDINGS AND SHOWED PAT RECURRENCE OF LESIONS USING A HAND MIRROR. APPLY CLOBETASOL OINTMENT Q OTHER NIGHT FOR 4 TO 6 WEEKS. CHECK VULVA Q 4 WEEKS AND INCREASE OR DECREASE DOSE NEEDED. RTO IN 4 TO 6 WEEKS. Atrophy of vulva DISCUSSED VULVAR ATROPHY AND THINNIING OF SKIN. APPLY ESTRADIOL CREAM TWICE WEEKLY. RX AND INSTRUCTIONS WERE GIVEN. Pending Test Test Name Order Date MAMMOGRAM, SCREENING 05/05/2023 MM Digital Mammo Screening 05/05/2023 Next Appt Details Follow Up: 4 TO 6 WEEKS OR P RN, Reason: Provider Name:Kera Mccarthy chase, 06/25/2024 10:00:00 AM, [address], [address], [place], [address], Progress Notes * ROSALIO LRDOB:1945 (77 yo F)Acc No.[id number]:05/05/2023 PROGRESS NOTES Patient:?ROSALIO LR Appointment Provider:?Kera stone M.D. :1945???Age:77 Y???Sex:Female D ate:05/05/2023 Address:[address] [place], [place] [id number] Pcp:Anabella Lopez MD Subjective: * Chief Complaints: * ???LR MEDICARE PEAnnual SIGN LETTERER Physical 60-85+ * HPI: ???New/Follow-up Patient Consult:? PAT ENTERED MENOPAUSE IN 1996. SHE IS BUT SELDOM SEXUALLY ACTIVE. ?SHE WAS DIAGNOSED TO HAVE LICHEN SCLEROSUS IN 2018 WHEN LESIONS WERE NOTED IN THE VULVA. SHE WAS TREATED WITH CLOBETASOL OINTMENT 0.05% AND SHE RESPONDED WELL. SHE WAS ON A TWICE WEEKLY MAINTENANCE DOSE. ?SHE HAS HAD SEVERAL BACK SURGERIES THROUGH THE YEARS AND HAD REGULAR CORTISOL INJECTIONS ON HER BACK. SHE DEVELOPED SEVERE SKIN LESIONS AND BECAME EXTREMELY FATIGUED. SHE WAS TOLD THIS WAS A REACTION TO HER STEROID USE AND SHE DISCONTINUED ALL STEROID INJECTIONS AND EVEN USING CLOBETASOL 2 MONTHS AGO. SHE HAS NOTED RECURRENCE OF VULVAR ITCHING. ?HER LAST MAMMOGRAM DONE IN JULY 2022 SHOWED BREASTS ARE NOT DENSE AND WAS NORMAL. ?HER LAST PAP TEST IN 2014 WAS NEGATIVE AND HPV NEGATIVE. SHE HAS NO HX OF ABNORMAL PAP TESTS. ?HER LAST BMD IN 2020 WAS NORMAL. ?SHE HAD A COLONOSCOPY DONE IN 2015. ?PFIZER X 3. ???Annual:? Patient presents for annual exam, ages 60-85, postmenopausal. ?General Health Maintenance:?Current breast complaints:?no breast pain, mass, discharge, or skin changes ?Urinary problems:?patient reports no urinary health problems or bowel health problems ?Calcium intake:?takes adequate calcium via diet and supplementation ?Significant SIGN LETTERER problems:?no significant milk sampler symptoms or problems * ROS:?general:?no?chest pain.?no?palpitations.?no?headache.?no?cough.?no?shortness of breath.?no?fever.?no?unexplained weight loss.?no?nausea/vomiting.?no?change in bowel movements.?no blood in stool.?no?genitourinary complaints.?no?skin complaints.? * Medical History:? 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 Control:?Menopause.?Colonoscopy?yes 2015.?Bone Density:?06/27/20, 07/05/16.? * OB History:?Total pregnancies?3.?Total living children?3.?NVD?3.? * Surgical History:?Back Fusio n Surgery 2016Left side of Thyroid Removed Right Should Surgery Colonoscopy Rectocele Repair Back Fusion Surgery 2017 * Hospitalization/Major Diagno stic Procedure:?3 Vaginal Deliveries See Surgical Hx * Family History:?Mother: dece ased 87 yrs, Bronchitis, asthma.?Father: 77 yrs, [place].? * Social History:?Tobacco Use:?Tobacco Use/Smoking?Are you a?nonsmoker ???Sexual History:?Sexual History?Had sex in the past 12 months (vaginal, oral, or anal)?: Yes, with: Men only, Use protection?: No, Have you ever had a Sexually transmitted disease?: No.?Details of Sexual History?Are you sexually active??Yes ???Drugs/Alcohol:?Drugs?Have you used drugs other than those for medical reasons in the past 12 months??No ?Alcohol Screen (Audit-C)?Did you have a drink containing alcohol in the past year?: No, Points: 0, Interpretation: Negative.?Miscellaneous:?Children: yes, 3. ?no Domestic violence. ?Exercise: yes, walking. ?Home smoke detector use: yes. ?Living with: spouse. ?Marital status: . ?Natural support system: yes. 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 ?no Sexual abuse. ?Sexually active: yes, monogamous relationship. ?no Verbal abuse. * Medications:?TakingLevothyro xine Sodium 137 MCG Tablet 1 tablet in the morning on an empty stomach Orally Once a dayLisinopril 5 MG Tablet TAKE 1 TABLET BY MOUTH ONCE DAILY Oral Atorvastatin Calcium 10 MG Tablet TAKE 1 TABLET BY MOUTH ONCE DAILY Oral Taking Levothyroxine Sodium 137 MCG Tablet 1 tablet in the morning on an empty stomach Orally Once a dayTaking Lisinopril 5 MG Tablet TAKE 1 TABLET BY MOUTH ONCE DAILY Oral Taking Atorvastatin Calcium 10 MG Tablet TAKE 1 TABLET BY MOUTH ONCE DAILY Oral Not-TakingClobetasol Propionate 0.05 % Ointment 1 application to affected area Externally once a nightEstradiol Vaginal Cream 0.01% Cream 1 Gram along vulva & intravaginally Twice a weekMedication List reviewed and reconciled with the patientNot-Taking Clobetasol Propionate 0.05 % Ointment 1 application to affected area Externally once a nightNot-Taking Estradiol Vaginal Cream 0.01% Cream 1 Gram along vulva & intravaginally Twice a weekMedication List reviewed and reconciled with the patient * Allergies:?N.K.D.A.no[Allerg ies Verified] Objective: * Vitals:?Ht: 67.5 in, Wt:169 lbs, BMI:26.08 Index, BP:112/72 mm Hg, Temp:97.1 F. * Examination: ???General Exam: ?CONSTITUTIONAL:?NECK/THYROID:?RESPIRATORY:?Auscultation: clear to auscultation bilaterally, Respiratory Effort: normal.?CARDIOVASCULAR:?Auscultation: regular rate and rhythm.?BREAST, Right:?BREAST, Left:?GASTROINTESTINAL:?MUSCULOSKELETAL:?SKIN:?NEURO/PSYCH:?Genitourinary: ?EXTERNAL GENITALIA:?VAGINA:?BLADDER:?URETHRA:?CERVIX:?UTERUS:?ADNEXA:?ANUS AND PERINEUM:? Assessment: * Assessment: 1.?Encounter for gynecologic al examination (general) (routine) without abnormal findings - Z01.419 (Primary)?2.?Encounter for screening mammogram for malignant neoplasm of breast - Z12.31?3.?Lichen sclerosus et atrophicus - L90.0?4.?Atrophy of vulva - N90.5? Plan: * Treatment: 2.?Encounter for screening m ammogram for malignant neoplasm of breast?Imaging: MM Digital Mammo Screening Notes: REGULAR MAMMOGRAMS AND SBE'S WERE RECOMMENDED.?? 3.?Lichen sclerosus et atrop hicus? Start Clobetasol Propionate Ointment, 0.05 %, 1 application to affected area, Externally, EVERY OTHER NIGHT, 90 DAYS, 45 Gram, Refills 2.?? Notes: DISCUSSED FINDINGS AND SHOWED PAT RECURRENCE OF LESIONS USING A HAND MIRROR. APPLY CLOBETASOL OINTMENT Q OTHER NIGHT FOR 4 TO 6 WEEKS. CHECK VULVA Q 4 WEEKS AND INCREASE OR DECREASE DOSE NEEDED. RTO IN 4 TO 6 WEEKS. ?? 4.?Atrophy of vulva? Start Estradiol Vaginal Cream Cream, 0.01%, 1 Gram to the affected area, Vaginal/Vulva, Twice a week, 90 Days, 42.5 Gram, Refills 4.?? Notes: DISCUSSED VULVAR ATROPHY AND THINNIING OF SKIN. APPLY ESTRADIOL CREAM TWICE WEEKLY. RX AND INSTRUCTIONS WERE GIVEN.?? * Imaging:? * ?Imaging: MAMMOGRAM, SCR EENING * Procedure Codes:? * Preventive Medicine:? ??YOUR PREVENTIVE WELLNESS PLAN:?Osteoporosis prevention?Calcium, D, strength training.?Breast Cancer Screening (Mammogram):?annually.?Cervical Cancer Screening (Pap Smear):?q 3 years with HPV screen.?Colorectal Cancer Screening:?q 10 years.? * Follow Up:?4 TO 6 WEEKS OR P RN * Images: Billing Information: * Visit Code:? 30504 Preventive Care Est Pt. Age 65 and over. * Procedure Codes:? * Sign off status: Completed true * Appointment Provider:?Kera Waldron M.D. Date:?05/05/2023 Generated for Solo martin/Michael/Sujathaitting on:?06/12/2024 12:06 PM EST History and Physical Notes * HPI (History of Present Illness) Category Sub-Category Detail Notes Category Not es New/Follow-up Patient Consult PAT ENTERED MENOPAUSE IN 1996. SHE IS BUT SELDOM SEXUALLY ACTIVE. SHE WAS DIAGNOSED TO HAVE LICHEN SCLEROSUS IN 2019 WHEN LESIONS WERE NOTED IN THE VULVA. SHE WAS TREATED WITH CLOBETASOL OINTMENT 0.05% AND SHE RESPONDED WELL. SHE WAS ON A TWICE WEEKLY MAINTENANCE DOSE. SHE HAS HAD SEVERAL BACK SURGERIES THROUGH THE YEARS AND HAD REGULAR CORTISOL INJECTIONS ON HER BACK. SHE DEVELOPED SEVERE SKIN LESIONS AND BECAME EXTREMELY FATIGUED. SHE WAS TOLD THIS WAS A REACTION TO HER STEROID USE AND SHE DISCONTINUED ALL STEROID INJECTIONS AND EVEN USING CLOBETASOL 2 MONTHS AGO. SHE HAS NOTED RECURRENCE OF VULVAR ITCHING. HER LAST MAMMOGRAM DONE IN JULY 2022 SHOWED BREASTS ARE NOT DENSE AND WAS NORMAL. HER LAST PAP TEST IN 2014 WAS NEGATIVE AND HPV NEGATIVE. SHE HAS NO HX OF ABNORMAL PAP TESTS. HER LAST BMD IN 2020 WAS NORMAL. SHE HAD A COLONOSCOPY DONE IN 2015. Someecards X 3. Annual General Health Maintenance: Current breast complaints:: no breast pain, mass, discharge, or skin changes Urinary problems:: patient r eports no urinary health problems or bowel health problems Calcium intake:: takes adequ ate calcium via diet and supplementation Significant SIGN LETTERER problems:: n o significant milk sampler symptoms or problems Examination Category Sub-Category Detail Notes Category Not es General Exam CONSTITUTIONAL: General Appearan ce:: alert, in no acute distress, normal, well nourished NECK/THYROID: Thyroid:: normal size and shape Inspection/Palpation:: normal RESPIRATORY: Auscultation: clear to auscultation bilaterally, Respiratory Effort: normal CARDIOVASCULAR: Auscultation: regula r rate and rhythm GASTROINTESTINAL: Hernias:: no hernias present, no inguinal adenopathy Liver and Spleen:: normal Abdomen:: no masses, nontender, nondiste nded MUSCULOSKELETAL: Inspection/Palpation:: no clubb ing, cyanosis, or edema SKIN: Skin:: normal NEURO/PSYCH: Mood/Affect:: normal Orientation:: time , place, person BREAST, Right: Inspection/Palpation :: no discharge, no masses present, no nipple retraction, no skin changes, no skin dimpling, no tenderness, no lymphadenopathy, no axillary mass, no axillary tenderness BREAST, Left: Inspection/Palpation :: no discharge, no masses present, no nipple retraction, no skin changes, no skin dimpling, no tenderness, no lymphadenopathy, no axillary mass, no axillary tenderness Genitourinary EXTERNAL GENITALIA: External Genitalia:: WHITE THINNED OUT LESIONS ALONG BILATERAL LABIA MAJORA, MINORA, PERINEUM C/W LICHEN SCLEROSUS VAGINA: Vagina:: normal appearance, no a bnormal discharge, no lesions BLADDER: Bladder:: no mass, nontender URETHRA: Urethra:: no erythema or lesions present CERVIX: Cervix:: no lesions, nontender UTERUS: Uterus:: nontender, normal conto ur, normal mobility, normal size ADNEXA: Adnexa:: no masses, no tendernes s ANUS AND PERINEUM: Anus/Perineum:: visually norm al
--- OUTSIDE RECORDS SUMMARY | 2024-06-12 12:06 | XMS_ITS ---
Author Organization [facility] Address [address] [address] Care Team Providers Care Quality Compliance Manager Name Role Phone Anabella Lopez MD Primary Care Provider Kera Choudhary Unavailable [phone] Allergies No Known Allergies REASON FOR VISIT 6 WEEK FOLLOW UP LICHEN Medications Medication SIG (Take, Route, Frequency, Duration) Notes Start Date End Date Status Estradiol Vaginal Cream 0.01% 1 Gram to the affected area Vaginal/Vulva Twice a week for 90 Days 05/05/2023 Active Clobetasol Propionate 0.05 % 1 application to affected area Externally EVERY OTHER NIGHT for 90 DAYS 05/05/2023 Active Atorvastatin Calcium 10 MG TAKE 1 TABLET BY MOUTH ONCE DAILY Oral for 90 Active Lisinopril 5 MG TAKE 1 TABLET BY CHANDRAKANT TH ONCE DAILY Oral for 30 Active Levothyroxine Sodium 137 MCG 1 tablet in the morning on an empty stomach Orally Once a day Active Social History Tobacco Use: Social History Observation Description Date Details (start date - stop date) Never Smoker NA - NA Tobacco Use/Smoking Question Answer Notes Are you a nonsmoker Vital Signs Temperature 97.7 degrees Fahrenheit 06/23/19 24 Blood pressure systolic 112 mm Hg 06/23/19 24 Blood pressure diastolic 78 mm Hg 024 Height 67.5 in 06/23/2023 Weight 173 lbs 06/23/2023 BMI 26.69 kg/m2 06/23/2023 Encounters Encounter Location Date Provider Diagnosis [facility] [address] [place] [id number] 06/23/2023 Kera Waldron Lichen sclerosus et atrophicus L90.0 and Atrophy of vulva N90.5 Assessments Encounter Date Diagnosis (ICD Code) Assessment Notes Treatment Notes Treatment Clinical Notes Section Notes 06/23/2023 Lichen sclerosus et atrophicus (ICD-10 - L90.0) DISCUSSED MARKED IMPROVEMENT AND CONGRATULATED PAT FOR FOLLOWING INSTRUCTIONS WELL. APPLY CLOBETASOL OINTMENT JUST TWICE WEEKLY, MONDAYS AND THURSDAYS. CHECK VULVA Q 2 MONTHS AND INCREASE OR DECREASE DOSE NEEDED. 06/23/2023 Atrophy of vulva (ICD-10 - N90.5) CONTINUE TO APPLY ESTRADIOL TWICE WEEKLY, TUESDAYS AND FRIDAYS. Plan Of Treatment Treatment Notes Assessment Notes Lichen sclerosus et atrophicus DISCUSSED MARKED IMPROVEMENT AND CONGRATULATED PAT FOR FOLLOWING INSTRUCTIONS WELL. APPLY CLOBETASOL OINTMENT JUST TWICE WEEKLY, MONDAYS AND THURSDAYS. CHECK VULVA Q 2 MONTHS AND INCREASE OR DECREASE DOSE NEEDED. Atrophy of vulva CONTINUE TO APPLY ES TRADIOL TWICE WEEKLY, TUESDAYS AND FRIDAYS. Next Appt Details Follow Up: APR 2024 OR PRN, Reason: Provider Name:Kera stone, 06/25/2024 10:00:00 AM, [address] [place] [address], [facility] [address], [place], [address], Progress Notes * ROSALIO LRDOB:1945 (77 yo F)Acc No.[id number]:06/23/2023 PROGRESS NOTES Patient:?ROSALIO LR Appointment Provider:?Kera stone M.D. :1945???Age:77 Y???Sex:Female D ate:06/23/2023 Address:[address] [place], [place] [id number] Pcp:Anabella Lopez MD Subjective: * Chief Complaints: * ???6 WEEK FOLLOW UP LICHEN * HPI: ???New/Follow-up Patient Consult:? VULVAR BIOPSY DONE IN 2019 SHOWED LICHEN SCLEROSUS. SHE RESPONDED WELL TO CLOBETASOL TREATMENT BUT RECURRENCE WAS NOTED ON HER 05/05/23 VISIT. SHE WAS ADVISED TO APPLY THE OINTMENT Q OTHER NIGHT FOR A MONTH. SHE WAS ALSO ADVISED TO APPLY ESTRADIOL CREAM ALONG THE VULVA TWICE WEEKLY. SHE IS HERE FOR A FOLLOW UP VISIT. * ROS:?general:?no?chest pain.?no?palpitations.?no?headache.?no?cough.?no?shortness of breath.?no?fever.?no?unexplained weight loss.?no?nausea/vomiting.?no?change in bowel movements.?no blood in stool.?no?genitourinary complaints.?no?skin complaints.? * Medical History:? 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 * Social History:?Tobacco Use:?Tobacco Use/Smoking?Are you a?nonsmoker [...] 1 TABLET BY MOUTH ONCE DAILY Oral Clobetasol Propionate 0.05 % Ointment 1 application to affected area Externally EVERY OTHER NIGHTEstradiol Vaginal Cream 0.01% Cream 1 Gram to the affected area Vaginal/Vulva Twice a weekTaking Levothyroxine Sodium 137 MCG Tablet 1 tablet in the morning on an empty stomach Orally Once a dayTaking Lisinopril 5 MG Tablet TAKE 1 TABLET BY MOUTH ONCE DAILY Oral Taking Atorvastatin Calcium 10 MG Tablet TAKE 1 TABLET BY MOUTH ONCE DAILY Oral Taking Clobetasol Propionate 0.05 % Ointment 1 application to affected area Externally EVERY OTHER NIGHTTaking Estradiol Vaginal Cream 0.01% Cream 1 Gram to the affected area Vaginal/Vulva Twice a weekDiscontinuedClobetasol Propionate 0.05 % Ointment 1 application to affected area Externally once a nightEstradiol Vaginal Cream 0.01% Cream 1 Gram along vulva & intravaginally Twice a weekMedication List reviewed and reconciled with the patientDiscontinued Clobetasol Propionate 0.05 % Ointment 1 application to affected area Externally once a nightDiscontinued Estradiol Vaginal Cream 0.01% Cream 1 Gram along vulva & intravaginally Twice a weekMedication List reviewed and reconciled with the patient * Allergies:?N.K.D.A.no[Allerg ies Verified] Objective: * Vitals:?Ht: 67.5 in, Wt: 173 lbs, BMI:26.69 Index, BP: 112/78 mm Hg, Temp: 97.7 F. * Examination: ???Gynecological: ?EXTERNAL GENITALIA:? MARKED IMPROVEMENT IS NOTED.? WHITE LESIONS HAVE ALMOST COMPLETELY RESOLVED..? Assessment: * Assessment: 1.?Lichen sclerosus et atrop hicus - L90.0 (Primary)?2.?Atrophy of vulva - N90.5? Plan: * Treatment: 2.?Atrophy of vulva? Notes: CONTINUE TO APPLY ESTRADIOL TWICE WEEKLY, TUESDAYS AND FRIDAYS.?? * Procedure Codes:? * Follow Up:?APR 2024 OR PRN * Images: Billing Information: * Visit Code:? * Procedure Codes:? * Sign off status: Completed true * Appointment Provider:?Kera Waldron M.D. Date:?06/23/2023 Generated for Solo martin/Michael/Sujathaitting on:?06/12/2024 12:06 PM EST History and Physical Notes * HPI (History of Present Illness) Category Sub-Category Detail Notes Category Not es New/Follow-up Patient Consult VULVAR BIOPSY DONE I 2018 SHOWED LICHEN SCLEROSUS. SHE RESPONDED WELL TO CLOBETASOL TREATMENT BUT RECURRENCE WAS NOTED ON HER 05/05/23 VISIT. SHE WAS ADVISED TO APPLY THE OINTMENT Q OTHER NIGHT FOR A MONTH. SHE WAS ALSO ADVISED TO APPLY ESTRADIOL CREAM ALONG THE VULVA TWICE WEEKLY. SHE IS HERE FOR A FOLLOW UP VISIT. Examination Category Sub-Category Detail Notes Category Not es Gynecological EXTERNAL GENITALIA: MARKED IMPRO VEMENT IS NOTED. WHITE LESIONS HAVE ALMOST COMPLETELY RESOLVED.
[2024-06-12 15:38] LABS: Rheumatoid Factor < 13.0 IU/mL (<15.0)
[2024-06-12 16:05] LABS: Erythrocyte Sedimentation Rate 11 MM/HR (0-20)
[2024-06-17 17:43] LABS: Cyclic Citrullinated Peptide <16 UNITS
== END 2024-06-12 12:04 | disposition home or self-care (01) ==
LOC: HO.HMGCLDS 12:03
PROVIDERS: PCP Internal Medicine; Visit Provider Internal Medicine
DX: M25.50 Pain in unspecified joint (principal)
CPT/HCPCS: 36415; 85652; 86200; 86431

== ENCOUNTER 2024-06-17 10:05 | Outpatient (AMB) | payer MEDICARE, SELFPAY ==
[2024-06-17 10:39] VITALS: BP 124/74; PULSE 65; RESP 18; TEMP 36.6; O2SAT 96; BMI 26.8
--- NOTE | 2024-06-17 10:39 | A.OFFPC_ITS ---
Vital Signs 06/17/24 10:39 Height 5 ft 6 in Weight 166 lb BMI 26.8 BP 124/74 Blood Pressure Location Lt brachial Position Sitting Respiration 18 Pulse 65 Pulse Source Pulse Oximeter Temp 97.9 F Temp Source Oral Pulse Oximetry (%) 96 Oxygen Delivery Method Room Air Intake Visit Reasons: Follow up pain in hands Intake Note: Pt is here today for a follow up on pain and burning sensation in hands worst at night. Allergies lisinopril Allergy (Unknown, Verified 06/17/24 10:46) hyperkalemia amlodipine Adverse Reaction (Verified 06/17/24 10:46) swelling in hands and legs Medication List - Last Reconciled 06/17/24 by Anabella Lopez MD ascorbate calcium (vitamin C) 500 mg PO DAILY atorvastatin 10 mg PO DAILY baclofen 10 mg PO BEDTIME cholecalciferol (vitamin D3) 25 mcg PO DAILY gabapentin 600 mg PO Q8H hydrochlorothiazide 12.5 mg PO QAM ibuprofen 800 mg PO Q8H levothyroxine 112 mcg PO DAILY lidocaine 5% 1 ea topical BID wg-rvgvhmp-dkn-iron fm-FA-vitK 18 mg-400 mcg- 25 mcg (One-A-Day Women's Complete(with vit K)) tabs PO omeprazole 20 mg PO DAILY trazodone 50 mg PO BEDTIME Tobacco use date assessed: 06/17/24 Fall risk assessment: No Falls in past year Last assessed Fall Risk: 06/17/24 Dental Screening Dental Screen Date: 06/17/24 Did you have a dental visit in the last 12 months?: Yes Did you have a dental problem in the last 6 months where you did not have access to dental care?: No Was dental information given to patient?: Patient has dentist HPI Follow up pain in hands HPI Details Pt c/o bilateral hand burning tingling and painful sensation mainly at night. She has been wearing wrist splints every night without significant improvement. Patient has been knitting for a few hours a day recently. 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 She has been taking gabapentin 600 mg 3 times a day for chronic lower back pain spinal stenosis. [facility] Medical History Vitamin D deficiency Normal pelvic exam Annual physical exam Leg edema Bacteriuria Hiatal hernia Hypothyroidism Hyperlipidemia Lumbar radiculopathy Surgical History History of esophagogastroduodenoscopy (EGD) H/O colonoscopy History of spinal surgery Family History Father No problems noted. Mother No problems noted. Social History Housing: House Alcohol intake: current Alcohol intake frequency: holidays/special occasions only Patient Tobacco Use Status: Never used Tobacco e-Cigarette/Vaping Use: Never Used service: No Current occupational status: retired Cognitive needs: No Hearing needs: No Vision needs: No Questionnaire PHQ-9 Over the last 2 weeks, how often have you been bothered by any of the following problems? 1. Little interest or pleasure in doing things: nearly every day 3. Trouble falling or staying asleep, or sleeping too much: nearly every day 4. Feeling tired or having little energy: nearly every day 7. Trouble concentrating on things, such as reading the newspaper or watching television: not at all 8. Moving or speaking so slowly that other people could have noticed. Or the op posite - being so fidgety or restless that you have been moving around a lot more than usual: not at all 9. Thoughts that you would be better off or of hurting yourself in some way: not at all Source: Developed by Drs. Michael Cuevas, Mercedes Costello, Geraldo Hartley and colleagues, with an educational garima from [employer]. Thrive Questionnaire Date Thrive assessed: 06/17/24 I am a: Patient What is your living situation today?: I have a steady place to live Within the past 12 months, did the food you bought not last and you didn't have the money to get more?: Never true Within the past 12 months, did you worry whether your food would run out before you got money to buy more?: Never true Do you have trouble paying for medicines?: No Do you have trouble getting transportation to medical appointments?: No Do you have trouble paying your heating and electricity bill?: No Do you have trouble taking care of your child, family member or friend?: No THRIVE Score: 0 JUDY-7 AMB Questionnaire JUDY-7 Date JUDY - 7 assessed: 02/09/24 Source: Developed by DrsSophia Cuevas, Mercedes Costello, Geraldo Hartley and colleagues, with an educational garima from [employer]. Review of Systems Const All systems reviewed & are unremarkable except as noted in HPI and below Eyes Reports no additional complaints ENT Reports no additional complaints Card Reports no additional complaints Resp Reports no additional complaints GI Reports no additional complaints Physical exam (Primary Care) Vital Signs: Last Vital Signs Temp 97.9 F 06/17/24 10:39 Pulse 65 06/17/24 10:39 Resp 18 06/17/24 10:39 BP 124/74 06/17/24 10:39 Pulse Ox 96 06/17/24 10:39 Oxygen Delivery Method Room Air 06/17/24 10:39 BMI result Body Mass Index 26.8 Tobacco/Smoking Status: Tobacco use Status Tobacco use date assessed 06/17/24 06/17/24 10:49 Patient Tobacco Use Status Never used Tobacco 06/17/24 10:49 e-Cigarette/Vaping Use Never Used 06/17/24 10:39 Thrive Assessment: Date of Thrive Assessment Date Thrive assessed 06/17/24 06/17/24 10:39 Const General: no acute distress Eyes General: appearance normal, both eyes and all related structures Resp Effort & Inspection: normal respiratory effort Auscultation: clear to auscultation bilaterally Cardio Rhythm: regular rhythm Heart sounds: S1 normal heart sound present Extrem General: Yes no clubbing, cyanosis or edema Left upper extremity: wrist (No joint tenderness swelling or erythema bilaterally) Coding Level of Care Code Est Pt Level 3 (63079) Diagnoses Carpal tunnel syndrome on both sides G56.03 Assessment & Plan Assessment & Plan (1) Carpal tunnel syndrome on both sides: Code(s): G56.03 - Carpal tunnel syndrome, bilateral upper limbs Category: Medical Plan: Obtain EMG. Patient was advised to use wrist support during her activities during the day. Continue gabapentin and ibuprofen as needed Orders: Orders NE electromyogram (EMG) Today G56.03 - Carpal tunnel syndrome, bilateral upper limbs Medications: Changed From gabapentin 600 mg PO BID 180 tabs 2RF To gabapentin 600 mg PO Q8H 270 tabs 3RF Refilled omeprazole 20 mg PO DAILY 90 caps 3RF gabapentin 600 mg PO Q8H 270 tabs 3RF atorvastatin 10 mg PO DAILY 90 tabs 3RF
--- OUTSIDE RECORDS SUMMARY | 2024-06-17 13:16 | XMS_ITS ---
Author Organization [facility] Address [address] [address] Care Team Providers Care Area Supervisor Name Role Phone Anabella Lopez MD Primary Care Provider Kera Choudhary Unavailable [phone] Allergies No Known Allergies REASON FOR VISIT [...] 06/23/2023 Encounters Encounter Location Date Provider Diagnosis [facility] [address] [place] [address] 06/23/2023 Kera Waldron Lichen sclerosus et atrophicus [...] Reason: Provider Name:Kera stone, 06/25/2024 10:00:00 AM, [address] [place] [address], [facility] [address], [place], [address], Progress Notes * ROSALIO LRDOB:1945 (77 yo F)Acc No.[id number]:06/23/2023 PROGRESS NOTES Patient:?ROSALIO LR Appointment Provider:?Kera stone M.D. :1945???Age:77 Y???Sex:Female D ate:06/23/2023 Address:[address] [place], [place] [id number] Pcp:Anabella Lopez MD Subjective: * Chief Complaints: [...] stool.?no?genitourinary complaints.?no?skin complaints.? * Medical History:? 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 * Social History:?Tobacco Use:?Tobacco Use/Smoking?Are you a?nonsmoker [...] Waldron M.D. Date:?06/23/2023 Generated for Solo martin/Michael/Sujathaitting on:?06/17/2024 01:16 PM EST History and Physical Notes * [...]
--- OUTSIDE RECORDS SUMMARY | 2024-06-17 13:16 | XMS_ITS | Patient Health Record ---
Author Organization [facility] Address [address] [address] Care Team Providers Care Manager Process Name Role Phone Anabella Lopez MD Primary Care Provider Kera Choudhary Unavailable [phone] Allergies No Known Allergies Reason For Referral No Information Medications Medication SIG (Take, Route, Frequency, Duration) Notes Start Date End Date Status Lisinopril 5 MG TAKE 1 TABLET BY CHANDRAKANT TH ONCE DAILY Oral for 30 Active Levothyroxine Sodium 137 MCG 1 tablet in the morning on an empty stomach Orally Once a day Active Estradiol Vaginal Cream 0.01% 1 Gram to the affected area Vaginal/Vulva Twice a week for 90 Days 05/05/2023 Active Clobetasol Propionate 0.05 % 1 application to affected area Externally EVERY OTHER NIGHT for 90 DAYS 05/05/2023 Active Atorvastatin Calcium 10 MG TAKE 1 TABLET BY MOUTH ONCE DAILY Oral for 90 Active Social History Tobacco Use: Social History Observation Description Date Details (start date - stop date) Never Smoker NA - NA Tobacco Use/Smoking Question Answer Notes Are you a nonsmoker Problems Problem Type SNOMED Code ICD Code Onset Dates Problem Status W/U Status Risk Notes Problem Postmenopausal atrophic vaginitis (26303658) 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) Active confirmed Problem 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) Lichen sclerosus et atrophicus (L90.0) Active confirmed Problem Atrophy of vulva (628794070) 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) Active confirmed Vital Signs Temperature 97.7 degrees Fahrenheit 06/23/2023 Blood pressure diastolic 78 mm Hg 06/23/2023 Height 67.5 in 06/23/2023 Blood pressure systolic 112 mm Hg 06/23/2023 Weight 173 lbs 06/23/2023 BMI 26.69 kg/m2 06/23/2023 Encounters Encounter Location Date Provider Diagnosis [facility] 46 Code On Network Coding [facility] [address] [place] [address] 06/23/2023 Kera Waldron Lichen sclerosus et atrophicus [...] WEEKLY, TUESDAYS AND FRIDAYS. Plan Of Treatment Pending Test Test Name Order Date MAMMOGRAM, SCREENING 04/30/2021 MAMMOGRAM, SCREENING 05/05/2023 MAMMOGRAM, SCREENING 09/15/2014 DIAGNOSTIC MAMMOGRAM, RIGHT BREAST 04/30 BONE DENSITY 04/27/2020 MM Digital Mammo Screening 04/30/2021 MM Digital Mammo Screening 05/02/2022 MM Digital Mammo Screening 05/05/2023 Right Breast Ultrasound 04/30/2021 Next Appt Details Provider Name:Kera stone, 06/25/2024 10:00:00 AM, 46 Code On Network Coding [facility], [address], [place], [address], Insurance Providers Payer Name Payer Address Payer Phone Subscriber Number Group Number Insured Name Patient Relationship to Insured Coverage Start Date Coverage End Date MEDICARE [address] JUAN A LINDO [id number] ROSALIO LR Self - patient is the insured MEDEX [address] [place] [address] [phone] [id number] MARYA LRNA Self - patient is the insured Medical (General) History Medical History History ICD Code Slipped disc, L3, L4, L5 Essential (primary) hypertension I10 Hypothyroidism, unspecified E03.9 Hyperlipidemia, unspecified E78.5 Postmenopausal atrophic vaginitis N95.2 Atrophy of vulva N90.5 Lichen sclerosus et atrophicus L90.0 Mastodynia N64.4 Surgical History Surgery Date(Month/Year) Back Fusion Surgery 2016 Left side of Thyroid Removed Right Should Surgery Colonoscopy Rectocele Repair Back Fusion Surgery 2017 Hospitalization History Reason Date(Month/Year) See Surgical Hx 3 Vaginal Deliveries
--- OUTSIDE RECORDS SUMMARY | 2024-06-17 13:16 | XMS_ITS ---
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 :1945???Age:77 Y???Sex:Female D ate:05/05/2023 Address:[address] [place], [place] [id number] Pcp:Anabella Lopez MD Subjective: * Chief Complaints: * ???LR MEDICARE PEAnnual GRAB DRIVER Physical 60-85+ * HPI: ???New/Follow-up Patient Consult:? [...] adequate calcium via diet and supplementation ?Significant GRAB DRIVER problems:?no significant digital product specialist symptoms or problems * ROS:?general:?no?chest pain.?no?palpitations.?no?headache.?no?cough.?no?shortness of breath.?no?fever.?no?unexplained weight loss.?no?nausea/vomiting.?no?change in bowel movements.?no blood in stool.?no?genitourinary complaints.?no?skin complaints.? * Medical History:? 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 * Social History:?Tobacco Use:?Tobacco Use/Smoking?Are you a?nonsmoker [...] * Images: Billing Information: * Visit Code:? 80243 Preventive Care Est Pt. Age 65 and over. * Procedure Codes:? * Sign off status: Completed true * Appointment Provider:?Kera Waldron M.D. Date:?05/05/2023 Generated for Solo martin/Michael/Sujathaitting on:?06/17/2024 01:16 PM [...] SHE HAD A COLONOSCOPY DONE IN 2015. Good Thing X 3. Annual General Health Maintenance: Current breast complaints:: no breast pain, mass, discharge, or skin changes Urinary problems:: patient r eports no urinary health problems or bowel health problems Calcium intake:: takes adequ ate calcium via diet and supplementation Significant GRAB DRIVER problems:: n o significant digital product specialist symptoms or problems Examination Category Sub-Category Detail [...]
== END 2024-06-17 13:00 | disposition home or self-care (01) ==
PROVIDERS: PCP Internal Medicine; Visit Provider Internal Medicine
DX: G56.03 Carpal tunnel syndrome, bilateral upper limbs (principal)

== ENCOUNTER → 2024-06-17 10:05 | Outpatient (BNVA) | payer MEDICARE, SELFPAY | PROVIDERS: PCP Internal Medicine; Visit Provider Internal Medicine | DX: G56.03 Carpal tunnel syndrome, bilateral upper limbs (principal) | CPT/HCPCS: 99212 ==

== ENCOUNTER 2024-06-29 08:08 | Outpatient (REF) | payer MEDICARE, SELFPAY ==
--- NOTE | 2024-06-29 08:09 | EMG_ITS ---
Bilateral median and ulnar motor and sensory studies were performed. Bilateral radial sensory studies were performed and paraspinal muscles were tested with a needle. 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 MD DMITRI Lancaster/FARRUKH / [id number]
--- OUTSIDE RECORDS SUMMARY | 2024-06-29 08:16 | XMS_ITS ---
Author Organization [facility] Address [address] [place] [address] Care Team Providers Care Cement Worker Name Role Phone Anabella Lopez MD Primary Care Provider Kera Choudhary Unavailable [phone] Allergies No Known Allergies REASON FOR VISIT [...] 06/23/2023 Encounters Encounter Location Date Provider Diagnosis [facility] [address] [address] 06/23/2023 Kera Waldron Lichen sclerosus et atrophicus [...] 2024 OR PRN, Reason: Provider Name:Kera stone, 08/09/2024 10:40:00 AM, [address] [place] [address], [facility] [address], [place], [address], Progress Notes * ROSALIO LRDOB:1945 (77 yo F)Acc No.[id number]:06/23/2023 PROGRESS NOTES Patient:?ROSALIO LR Appointment Provider:?Kera stone M.D. :1945???Age:77 Y???Sex:Female D ate:06/23/2023 Address:[address] [place], [place] [phone] Pcp:Anabella Lopez MD Subjective: * Chief Complaints: [...] stool.?no?genitourinary complaints.?no?skin complaints.? * Medical History:? 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 * Social History:?Tobacco Use:?Tobacco Use/Smoking?Are you a?nonsmoker [...] Waldron M.D. Date:?06/23/2023 Generated for Solo martin/Michael/Sujathaitting on:?06/29/2024 08:16 AM EST History and Physical Notes * HPI [...]
--- OUTSIDE RECORDS SUMMARY | 2024-06-29 08:16 | XMS_ITS ---
Author Organization [facility] Address [address] [address] Care Team Providers Care Mirror Finishing Machine Operator Name Role Phone Anabella Lopez MD Primary Care Provider UnavailKera Shirley Unavailable [phone] Allergies No Known Allergies REASON FOR VISIT Interval/Med Check Medications Medication SIG (Take, Route, Frequency, Duration) Notes Start Date End Date Status Clobetasol Propionate 0.05 % 1 applicati on to affected area Externally EVERY OTHER NIGHT for 90 DAYS 05/05/2023 Active Gabapentin 600 MG 600 MG ORALLY 2 TIME S A DAY Oral for 90 Days Active Estradiol Vaginal Cream 0.01% 1 Gram to the affected area Vaginal/Vulva Twice a week for 90 Days 05/05/2023 Active Omeprazole 20 MG Oral for 90 Days Active hydroCHLOROthiazide 12.5 MG TAKE 1 TABLE T BY MOUTH IN THE MORNING Oral for 90 Days Active Atorvastatin Calcium 10 MG TAKE 1 TABLET BY MOUTH ONCE DAILY Oral for 90 Active Levothyroxine Sodium 112 MCG 1 tablet in the morning on an empty stomach Orally Once a day Active Social History Tobacco Use: Social History Observation Description Date Details (start date - stop date) Never Smoker NA - NA AUDIT-C (Standard) Question Answer Notes Did you have a drink containing alcohol in the p ast year? No Points 0 Interpretation Negative Tobacco Control (Standard) Question Answer Notes Tobacco use: Nonsmoker Vital Signs Temperature 97.5 degrees Fahrenheit 06/25/19 25 Blood pressure systolic 122 mm Hg 06/25/19 25 Blood pressure diastolic 80 mm Hg 025 Height 66 in 06/25/2024 Weight 177 lbs 06/25/2024 BMI 28.57 kg/m2 06/25/2024 Encounters Encounter Location Date Provider Diagnosis [facility] [address] [address] 06/25/2024 Kera Waldron Encounter for gynecological examination (general) (routine) with abnormal findings Z01.411 ; Encounter for screening mammogram for malignant neoplasm of breast Z12.31 ; Lichen sclerosus et atrophicus L90.0 ; Atrophy of vulva N90.5 and Postmenopausal atrophic vaginitis N95.2 Assessments Encounter Date Diagnosis (ICD Code) Assessment Notes Treatment Notes Treatment Clinical Notes Section Notes 06/25/2024 Encounter for gynecological examination (general) (routine) with abnormal findings (ICD-10 - Z01.411) NO MORE PAP TESTS. 06/25/2024 Encounter for screening mammogram for malignant neoplasm of breast (ICD-10 - Z12.31) REGULAR MAMMOGRAMS AND SBE'S WERE RECOMMENDED. 06/25/2024 Lichen sclerosus et atrophicus (ICD-10 - L90.0) DISCUSSED FINDINGS AND RECURRENCE OF LICHEN SCLEROSUS. DETAILED INSTRUCTIONS ON CLOBETASOL TREATMENT WAS GIVEN. APPLY Q NIGHT FOR 6 TO 8 WEEKS. RTO IN 8 WEEKS. 06/25/2024 Atrophy of vulva (ICD-10 - N90.5) CONTINUE APPLYING ESTRADIOL CREAM ALONG VULVA TWICE WEEKLY. 06/25/2024 Postmenopausal atrophic vaginitis (ICD-10 - N95.2) DISCUSSED VAGINAL ATROPHY. APPLY ESTRADIOL CREAM INTRAVAGINALLY TWICE WEEKLY. Plan Of Treatment Treatment Notes Assessment Notes Encounter for gynecological examination (general) (routine) with abnormal findings NO MORE PAP TESTS. Encounter for screening mamm ogram for malignant neoplasm of breast REGULAR MAMMOGRAMS AND SBE'S WERE RECOMMENDED. Lichen sclerosus et atrophicus DISCUSSED FINDINGS AND RECURRENCE OF LICHEN SCLEROSUS. DETAILED INSTRUCTIONS ON CLOBETASOL TREATMENT WAS GIVEN. APPLY Q NIGHT FOR 6 TO 8 WEEKS. RTO IN 8 WEEKS. Atrophy of vulva CONTINUE APPLYING ES TRADIOL CREAM ALONG VULVA TWICE WEEKLY. Postmenopausal atrophic vaginitis DISCUSSED VAGINAL ATROPHY. APPLY ESTRADIOL CREAM INTRAVAGINALLY TWICE WEEKLY. Pending Test Test Name Order Date MM Digital Mammo Screening 06/25/2024 Next Appt Details Follow Up: 6 Weeks, Reason: Provider Name:Kera stone, 08/09/2024 10:40:00 AM, [address], [place], [address], Progress Notes * FABI LRB:1945 (78 yo F)Acc No.[id number]:06/25/2024 Patient:ROSALIO TO Appointment Provider:?Kera stone M.D. :1945???Age:78 Y???Sex:Female D ate:06/25/2024 Address:[address] [place] [address] Pcp:Anabella Lopez MD Subjective: * Chief Complaints: * ???Interval/Med Check * HPI: ???New/Follow-up Patient Consult:? ROSALIO ENTERED MENOPAUSE IN 1996.? SHE IS , SELDOM SEXUALLY ACTIVE AND DENIES DYSPAREUNIA. VULVAR BIOPSY DONE IN 2018 SHOWED LICHEN SCLEROSUS.? SHE RESPONDED WELL TO CLOBETASOL TREATMENT AND HAS BEEN ON A TWICE WEEKLY MAINTENANCE DOSE FOR YEARS.? SHE WAS ALSO ADVISED TO APPLY ESTRADIOL CREAM ALONG THE VULVA TWICE WEEKLY FOR VULVAR ATROPHY. HER LAST MAMMOGRAM DONE IN JULY 2023 SHOWED BREASTS ARE NOT DENSE AND WAS NORMAL. HER LAST PAP TEST IN 2014 WAS NEGATIVE AND HPV NEGATIVE.? SHE HAS NO HX OF ABNORMAL PAP TESTS. HER LAST BMD IN 2020 WAS NORMAL. SHE HAD A COLONOSCOPY DONE IN 2015.? SHE WAS TOLD SHE NO LONGER NEEDED COLONOSCOPIES BY HER SUPERVISOR COLOR PASTE MIXING. * ROS:?general:?no?chest pain.?no?palpitations.?no?headache.?no?cough.?no?shortness of breath.?no?fever.?no?unexplained weight loss.?no?nausea/vomiting.?no?change in bowel movements.?no blood in stool.?no?genitourinary complaints.?no?skin complaints.? * Medical History:? * Supply Chain Design Manager History:?/ Para?3/3.?Sexual activity?currently sexually active.?Last Pap Smear:?09/15/2014 , neg, NEG HRHPV.?Mammogram:?07/29/23 < 50% density, 07/23/22 < 50% density, 07/21/21 Left Screening < [...] ased 87 yrs, Bronchitis, asthma.?Father: 77 yrs, [place].? * Social History:?Tobacco Use:?Tobacco Control (Standard)?Tobacco use:?Nonsmoker ???Sexual History:?Sexual History?Had sex in the past 12 months (vaginal, oral, or anal)?: Yes, with: Men only, Use protection?: No, Have you ever had a Sexually transmitted disease?: No.?Details of Sexual History?Are you sexually active??Yes ???Drugs/Alcohol:?Drugs?Have you used drugs other than those for medical reasons in the past 12 months??No ???Miscellaneous:?Children: yes, 3. ?Domestic violence: no. ?Exercise: yes, walking. ?Home smoke detector use: yes. ?Living with: spouse. ?Marital status: . ?Natural support system: yes. 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 ?Sexual abuse: no. ?Sexually active: yes, monogamous relationship. ?Verbal abuse: no. ???Drug/Alcohol:?AUDIT-C (Standard)?Did you have a drink containing alcohol in the past year??No ?Points?0 ?Interpretation?Negative * Medications:?TakingLevothyro xine Sodium 112 MCG Capsule 1 tablet in the morning on an empty stomach Orally Once a day Atorvastatin Calcium 10 MG Tablet TAKE 1 TABLET BY MOUTH ONCE DAILY Oral Clobetasol Propionate 0.05 % Ointment 1 application to affected area Externally EVERY OTHER NIGHT Estradiol Vaginal Cream 0.01% Cream 1 Gram to the affected area Vaginal/Vulva Twice a week Gabapentin 600 MG Tablet 600 MG ORALLY 2 TIMES A DAY Oral hydroCHLOROthiazide 12.5 MG Tablet TAKE 1 TABLET BY MOUTH IN THE MORNING Oral Omeprazole 20 MG Capsule Delayed Release Oral Taking Levothyroxine Sodium 112 MCG Capsule 1 tablet in the morning on an empty stomach Orally Once a day Taking Atorvastatin Calcium 10 MG Tablet TAKE 1 TABLET BY MOUTH ONCE DAILY Oral Taking Clobetasol Propionate 0.05 % Ointment 1 application to affected area Externally EVERY OTHER NIGHT Taking Estradiol Vaginal Cream 0.01% Cream 1 Gram to the affected area Vaginal/Vulva Twice a week Taking Gabapentin 600 MG Tablet 600 MG ORALLY 2 TIMES A DAY Oral Taking hydroCHLOROthiazide 12.5 MG Tablet TAKE 1 TABLET BY MOUTH IN THE MORNING Oral Taking Omeprazole 20 MG Capsule Delayed Release Oral DiscontinuedLisinopril 5 MG Tablet TAKE 1 TABLET BY MOUTH ONCE DAILY Oral Medication List reviewed and reconciled with the patientDiscontinued Lisinopril 5 MG Tablet TAKE 1 TABLET BY MOUTH ONCE DAILY Oral Medication List reviewed and reconciled with the patient * Allergies:?N.K.D.A.no[Allerg ies Verified] Objective: * Vitals:?Ht: 66 in, Wt: 177 l bs, BMI:28.57Index, BP: 122/80 mm Hg, Temp: 97.5 F. * Examination: ???General Examination: ?GENERAL APPEARANCE:?in no acute distress, well developed, well nourished.?BREASTS:?normal, no dimpling, no discharge, no drainage, no masses palpable bilaterally, nontender.?RUBY ON RAILS ENGINEER exam: ?EXTERNAL GENITALIA:?WHITE THINNED OUT LESIONS ALONG THE FOURCHETTE C/W RECURRENCE OF LICHEN SCLEROSUS.?VAGINA:?atrophic changes.?CERVIX:?No cervical motion tenderness, discharge or lesions.?UTERUS:?normal size, shape and consistency, normal mobility, nontender.?ADNEXA:?no masses or tenderness bilaterally.? Assessment: * Assessment: 1.?Encounter for gynecologic al examination (general) (routine) with abnormal findings - Z01.411???2.?Encounter for screening mammogram for malignant neoplasm of breast - Z12.31???3.?Lichen sclerosus et atrophicus - L90.0???4.?Atrophy of vulva - N90.5???5.?Postmenopausal atrophic vaginitis - N95.2??? Plan: * Treatment: 2.?Encounter for screening m ammogram for malignant neoplasm of breast?Imaging: MM Digital Mammo Screening Notes: REGULAR MAMMOGRAMS AND SBE'S WERE RECOMMENDED.?? 3.?Lichen sclerosus et atrop hicus? Notes: DISCUSSED FINDINGS AND RECURRENCE OF LICHEN SCLEROSUS. DETAILED INSTRUCTIONS ON CLOBETASOL TREATMENT WAS GIVEN. APPLY Q NIGHT FOR 6 TO 8 WEEKS. RTO IN 8 WEEKS.?? 4.?Atrophy of vulva? Notes: CONTINUE APPLYING ESTRADIOL CREAM ALONG VULVA TWICE WEEKLY.?? 5.?Postmenopausal atrophic v aginitis? Notes: DISCUSSED VAGINAL ATROPHY. APPLY ESTRADIOL CREAM INTRAVAGINALLY TWICE WEEKLY.?? * Procedure Codes:? * Follow Up:?6 Weeks * Images: Billing Information: * Visit Code:? * Procedure Codes:? * Sign off status: Completed true * Appointment Provider:?Kera Waldron M.D. Date:?06/25/2024 Generated for Solo martin/Michael/Sujathaitting on:?06/29/2024 08:16 AM EST History and Physical Notes * HPI (History of Present Illness) Category Sub-Category Detail Notes Category Not es New/Follow-up Patient Consult ROSALIO ENTERED MENOPAUSE IN 1996. SHE IS , SELDOM SEXUALLY ACTIVE AND DENIES DYSPAREUNIA. VULVAR BIOPSY DONE IN 2018 SHOWED LICHEN SCLEROSUS. SHE RESPONDED WELL TO CLOBETASOL TREATMENT AND HAS BEEN ON A TWICE WEEKLY MAINTENANCE DOSE FOR YEARS. SHE WAS ALSO ADVISED TO APPLY ESTRADIOL CREAM ALONG THE VULVA TWICE WEEKLY FOR VULVAR ATROPHY. HER LAST MAMMOGRAM DONE IN JULY 2023 SHOWED BREASTS ARE NOT DENSE AND WAS NORMAL. HER LAST PAP TEST IN 2014 WAS NEGATIVE AND HPV NEGATIVE. SHE HAS NO HX OF ABNORMAL PAP TESTS. HER LAST BMD IN 2020 WAS NORMAL. SHE HAD A COLONOSCOPY DONE IN 2015. SHE WAS TOLD SHE NO LONGER NEEDED COLONOSCOPIES BY HER SUPERVISOR COLOR PASTE MIXING. Examination Category Sub-Category Detail Notes Category Not es General Examination GENERAL APPEARANCE: in no ac anne distress, well developed, well nourished BREASTS: normal, no dimpling, no discharge, no drainage, no masses palpable bilaterally, nontender RUBY ON RAILS ENGINEER exam CERVIX: No cervical motion tendernes s, discharge or lesions VAGINA: atrophic changes EXTERNAL GENITALIA: WHITE THINNED OUT LE SIONS ALONG THE FOURCHETTE C/W RECURRENCE OF LICHEN SCLEROSUS UTERUS: normal size, shape a nd consistency, normal mobility, nontender ADNEXA: no masses or tendern ess bilaterally
--- OUTSIDE RECORDS SUMMARY | 2024-06-29 08:16 | XMS_ITS | Patient Health Record ---
Author Organization [facility] Address [address] [address] Care Team Providers Care Audit Clerk Name Role Phone Anabella Lopez MD Primary Care Provider Kera Choudhary Unavailable [phone] Allergies No Known Allergies Reason For Referral No Information Medications Medication SIG (Take, Route, Frequency, Duration) Notes Start Date End Date Status Atorvastatin Calcium 10 MG TAKE 1 TABLET BY MOUTH ONCE DAILY Oral for 90 Active Levothyroxine Sodium 112 MCG 1 tablet in the morning on an empty stomach Orally Once a day Active Clobetasol Propionate 0.05 % 1 applicati on [...] THE MORNING Oral for 90 Days Active Social History Tobacco Use: Social History Observation Description Date Details (start date - stop date) Never Smoker NA - NA AUDIT-C (Standard) Question Answer Notes Did you have a drink containing alcohol in the p ast year? 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 Plan Of Treatment Pending Test Test Name Order Date MAMMOGRAM, SCREENING 04/30/2021 MAMMOGRAM, SCREENING 05/05/2023 MAMMOGRAM, SCREENING 09/15/2014 DIAGNOSTIC MAMMOGRAM, RIGHT BREAST 04/30 BONE DENSITY 04/27/2020 MM Digital Mammo Screening 04/30/2021 MM Digital Mammo Screening 06/25/2024 MM Digital Mammo Screening 05/02/2022 MM Digital Mammo Screening 05/05/2023 Right Breast Ultrasound 04/30/2021 Next Appt Details Provider Name:Kera stone, 08/09/2024 10:40:00 AM, [address] [facility], [address], [place], [address], Insurance Providers Payer Name Payer Address Payer Phone Subscriber Number Group Number Insured Name Patient Relationship to Insured Coverage Start Date Coverage End Date MEDICARE [address] JUAN A LINDO [id number] PETARROSALIO SOMMER Self - patient is the insured MEDEX [address] [place] [address] [phone] [id number] ROSALIO LR Self - patient is the insured Medical (General) History Medical History History ICD Code Slipped disc, L3, L4, L5 Essential (primary) hypertension I10 Hypothyroidism, unspecified E03.9 Hyperlipidemia, unspecified E78.5 Postmenopausal atrophic vaginitis N95.2 Atrophy of vulva N90.5 Lichen sclerosus et atrophicus L90.0 Mastodynia N64.4 Unspecified lump in the right breast, ov erlapping quadrants N63.15 Surgical History Surgery Date(Month/Year) Back Fusion Surgery 2016 Left side of Thyroid Removed Right Should Surgery Colonoscopy Rectocele Repair Back Fusion Surgery 2017 Hospitalization History Reason Date(Month/Year) See Surgical Hx 3 Vaginal Deliveries
== END 2024-06-29 08:09 | disposition home or self-care (01) ==
LOC: HO.NEURO 08:08
PROVIDERS: PCP Internal Medicine; Visit Provider Internal Medicine
DX: G56.03 Carpal tunnel syndrome, bilateral upper limbs (principal)
CPT/HCPCS: 95886; 95911

== ENCOUNTER 2024-09-14 08:51 | Outpatient (REF) | payer MEDICARE, SELFPAY ==
--- OUTSIDE RECORDS SUMMARY | 2024-09-14 09:22 | XMS_ITS | Referral Summary ---
Author Organization [facility] Address [address] [place] [address] Care Team Providers Care Tax Adjuster Name Role Phone JohnAnabella Primary Care Provider Encounters Date Type Department Care Team Description 09/02/2024 12:09 PM EDT - 09/02/2024 11:59 PM EDT Hospital Encounter [facility] XRay [address] [place] [address] Vicente Chandra MD Fusion of spine of thoracolumbar region Discharge Disposition: Home or Self Care (01) 09/02/2024 12:40 PM EDT Follow-Up [facility] [address] [place] [address] Vicente Chandra MD Chronic bilateral low back pain without sciatica (Primary Dx) from Last 3 Months Allergies Active Allergy Reactions Criticality Noted Date Comments Amlodipine Unknown 06/26/2021 edema Medications levothyroxine (SYNTHROID, LEVOTHROID) 137 mcg tablet Take 1 tablet by mouth daily. 10/11/2015 Active gabapentin (NEURONTIN) 600 mg tablet Take 300 mg by mouth 2 times a day. 0 02/09/2017 Active LACTOBACILLUS ACIDOPHILUS ORAL Take by mouth. Active cholecalciferol, vitamin D3, 2,000 unit tablet Vitamin D TABS Refills: 0 Active Active atorvastatin (LIPITOR) 10 mg tablet Take 10 mg by mouth daily. 10/02/2019 Active polyethylene glycol 3350 (MIRALAX) 17 gram packet Take 1 packet (17 g total) by mouth daily as needed (Constipatio n). Mix powder in 4-8 ounces of water 03/09/2020 Active lisinopriL (PRINIVIL,ZESTRI L) 5 mg tablet Take 5 mg by mouth daily. 03/10/2020 Active multivitamin (ONE-A-DAY ESSENTIAL ORAL) Take by mouth. 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 Throat irritation 11/23/2013 Hoarseness 11/23/2013 Laryngopharyngeal reflux (LPR) 11/23/2013 Social History Tobacco Use Types Packs/Day Years Used Date Smoking Tobacco: Never Smokeless Tobacco: Never Comments:: Alcohol Use Standard Drinks/Week Comments No 0 (1 standard drink = 0.6 oz pur e alcohol) Comments No Sex and Gender Information Value Date Recorded Sex Assigned at Female 03/08/2020 9:22 PM EDT Legal Sex Female 6:18 PM EDT Gender Identity Female 03/08/2020 9:22 PM EDT Sexual Orientation Straight 03/08/2020 9: 22 PM EDT Last Filed Vital Signs Vital Sign Reading Time Taken Comments Blood Pressure 112/55 03/09/2020 8:32 AM EDT Pulse 71 03/09/2020 8:32 AM EDT Temperature 37.2 ??C (99 ??F) 03/09/2020 8:32 AM EDT Respiratory Rate 20 03/09/2020 8:32 AM EDT Oxygen Saturation 91% 03/09/2020 8:32 AM EDT Inhaled Oxygen Concentration - - Weight 86.2 kg (190 lb) 04/18/2020 9:17 AM EST Height 164.5 cm (5' 4.76 ) 03/08/2020 11:15 AM E DT Body Mass Index 31.85 03/08/2020 11:15 AM EDT Plan of Treatment Upcoming Encounters Date Type Department Care Team (Late st Contact Info) Description 09/06/2025 12:00 PM EDT Follow-Up [facility] [address] [place] [address] Vicente Chandra MD [address] [place] [address] Medical Devices Implanted Type Area Global Cmo Device Identifier Shelf Expiration Date Model / Serial / Lot Mesh Flat [id number] - [id number] Implanted:Qty: 1 on 03/08/2020 by Brenton Horton MD at [facility] Mesh N/A: Abdomen [employer] 10/13/2024 [id number] / / [id number] Mesh Tissue Bioabsorbable [id number] Bio-A - [id number] - [id number] Implanted:Qty: 1 on 03/08/2020 by Brenton Horton MD at [facility] Mesh N/A: Abdomen W L GORE 09/05/2022 [id number] / [id number] / Procedures * Due to [facility] law, this organization might not be sharing negative HIV tests. Procedure Name Priority Date/Time Associated Diagnosis Comments XR SCOLIOSIS 2-3 VIEWS Routine 09/02/2024 12:22 PM EDT Fusion of spine of thoracolumbar region from Last 3 Months Results * Due to [facility] law, this organization might not be sharing negative HIV tests. * X-Ray Scoliosis Standing AP and Lateral (09/02/2024 12:22 PM EDT) Anatomical Region Laterality Modality Spine Computed Radiogr aphy 09/02/2024 8:50 PM EDT Impressions 09/02/2024 8:55 PM EDT FINDINGS/IMPRESSION: Large field view imaging precludes fine osseous and soft tissue evaluation. ??Images were obtained for biometric analysis. Prior posterior instrument spinal fusion with hardware spanning the lower thoracic spine to L5. ??There is similar disruption of the posterior rods at the L2-L3 level best seen on the lateral projection. ??Similar lucency surrounding the right T10 and L2 screws, which may be due to loosening. ??Similar interbody device at L3-L4. Similar chronic compression fracture deformities of the T9 and L1 vertebral bodies. There is exaggerated kyphotic curvature centered at T9. ??Similar background multilevel disc degeneration and facet arthropathy. The sacrum is obscured by overlying soft tissue structures. ??Osseous structures appear demineralized. If this radiology report contains a blank impression section, it is an incomplete radiology report. ??Please contact the interpreting radiologist or applicable radiology division as soon as possible to obtain the completed interpretation. ? Workstation ID: [id number] Narrative 09/02/2024 8:55 PM EDT COMPARISON: 07/31/2023. Resulting Agency Comment [id number] Procedure Note Chriss Kapadia MD - 09/02/2024 COMPARISON: 07/31/2023. IMPRESSION: FINDINGS/IMPRESSION: Large field view imaging precludes fine osseous and soft tissueevaluation. Images were obtained for biometric analysis. Prior posterior instrument spinal fusion with hardware spanning the lowerthoracic spine to L5. There is similar disruption of the posterior rodsat the L2-L3 level best seen on the lateral projection. Similar lucencysurrounding the right T10 and L2 screws, which may be due to loosening.Similar interbody device at L3-L4. Similar chronic compression fracture deformities of the T9 and P0rbpblrzhp bodies. There is exaggerated kyphotic curvature centered at T9. Similarbackground multilevel disc degeneration and facet arthropathy. The sacrum is obscured by overlying soft tissue structures. Osseousstructures appear demineralized. If this radiology report contains a blank impression section, it is anincomplete radiology report. Please contact the interpreting radiologistor applicable radiology division as soon as possible to obtain thecompleted interpretation. Workstation ID: [id number] us Vicente Chandra MD IMG XR PROCEDURES Final Res ult from Last 3 Months Insurance MEDICARE [facility] Advance Directives Documents on File Type Date Recorded Patient Loss Prevention Agent Expl [facility] Care Proxy 02/10/2017 12:00 AM 01/17 * Full Code (Latest Code Status on File) Date Activated Date Inactivated Comments 03/08/2020 4:58 PM 03/09/2020 6:37 PM * Full Code Date Activated Date Inactivated Comments 03/08/2020 11:29 AM 03/08/2020 4:58 PM Care Teams Tax Adjuster Relationship Specialty Start Date End Date Anabella [address] [place] [address] PCP - General 12/05/16
--- OUTSIDE RECORDS SUMMARY | 2024-09-14 09:22 | XMS_ITS ---
Author Organization [facility] Address [address] [address] Care Team Providers Care Straightening Machine Operator Name Role Phone Anabella Lopez MD Primary Care Provider UnavailKera Shirley Unavailable [phone] Allergies No Known Allergies REASON FOR VISIT LICHEN FOLLOW UP Medications Medication SIG (Take, Route, Frequency, Duration) Notes Start Date End Date Status Omeprazole 20 MG Oral for 90 Days Active hydroCHLOROthiazide 12.5 MG TAKE 1 TABLE T BY MOUTH IN THE MORNING Oral for 90 Days Active Levothyroxine Sodium 112 MCG 1 tablet in the morning on an empty stomach Orally Once a day Active Clobetasol Propionate 0.05 % 1 applicati on to affected area Externally EVERY OTHER NIGHT for 90 DAYS 05/05/2023 Active Atorvastatin Calcium 10 MG TAKE 1 TABLET BY MOUTH ONCE DAILY Oral for 90 Active Gabapentin 600 MG 600 MG ORALLY 2 TIME S A DAY Oral for 90 Days Active Estradiol Vaginal Cream 0.01% 1 Gram to the affected area Vaginal/Vulva Twice a week for 90 Days 05/05/2023 Active Social History Tobacco Use: Social History Observation Description Date Details (start date - stop date) Never Smoker NA - NA AUDIT-C (Standard) Question Answer Notes Did you have a drink containing alcohol in the p ast year? No Points 0 Interpretation Negative Tobacco Control (Standard) Question Answer Notes Tobacco use: Nonsmoker Vital Signs Temperature 97.4 degrees Fahrenheit 08/19/19 25 Blood pressure systolic 112 mm Hg 08/19/19 25 Blood pressure diastolic 64 mm Hg 025 Height 66 in 08/18/2024 Weight 186 lbs 08/18/2024 BMI 30.02 kg/m2 08/18/2024 Encounters Encounter Location Date Provider Diagnosis [facility] [address] [facility] [address] [place] [address] 08/18/2024 Kera Waldron Lichen sclerosus et atrophicus L90.0 and Atrophy of vulva N90.5 Assessments Encounter Date Diagnosis (ICD Code) Assessment Notes Treatment Notes Treatment Clinical Notes Section Notes 08/18/2024 Lichen sclerosus et atrophicus (ICD-10 - L90.0) DISCUSSED MARKED IMPROVEMENT AND CONGRATULATED PAT FOR HER DILIGENCE. APPLY CLOBETASOL OINTMENT TO AFFECTED AREA TWICE WEEKLY. 08/18/2024 Atrophy of vulva (ICD-10 - N90.5) CONTINUE APPLYING ESTRADIOL CREAM TO VULVA TWICE WEEKLY. Plan Of Treatment Treatment Notes Assessment Notes Lichen sclerosus et atrophicus DISCUSSED MARKED IMPROVEMENT AND CONGRATULATED PAT FOR HER DILIGENCE. APPLY CLOBETASOL OINTMENT TO AFFECTED AREA TWICE WEEKLY. Atrophy of vulva CONTINUE APPLYING ES TRADIOL CREAM TO VULVA TWICE WEEKLY. Next Appt Details Follow Up: 6 Months, Reason: Provider Name:Kera stone, 02/28/2025 09:40:00 AM, [address] [facility], [address], [place], [address], Progress Notes * ROSALIO LRDOB:1945 (78 yo F)Acc No.[id number]:08/18/2024 PROGRESS NOTES Patient:?ROSALIO LR Appointment Provider:?Kera stone M.D. :1945???Age:78 Y???Sex:Female D ate:08/18/2024 Address:[address] [place], [place] [id number] Pcp:Anabella Lpoez MD Subjective: * Chief Complaints: * ???LICHEN FOLLOW UP * HPI: ???New/Follow-up Patient Consult:? VULVAR BIOPSY DONE IN 2018 CONFIRMED THE DX OF LICHEN SCLEROSUS.? SHE RESPONDED WELL TO CLOBETASOL THERAPY BUT ON HER VISIT LAST JUN 2024, RECURRENCE WAS NOTED.? SHE WAS ADVISED TO APPLY CLOBETASOL OINTMENT TWICE DAILY.? SHE IS HERE FOR A FOLLOW UP VISIT. * ROS:?general:?no?chest pain.?no?palpitations.?no?headache.?no?cough.?no?shortness of breath.?no?fever.?no?unexplained weight loss.?no?nausea/vomiting.?no?change in bowel movements.?no blood in stool.?no?genitourinary complaints.?no?skin complaints.? * Medical History:? 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 Control:?Menopause.?Colonoscopy?yes 2015.?Bone Density:?06/27/20, 07/05/16.? * OB History:?Total pregnancies?3.?Total living children?3.?NVD?3.? * Surgical History:?Back Fusio n Surgery 2016Left side of Thyroid Removed Right Should Surgery Colonoscopy Rectocele Repair Back Fusion Surgery 2017Carpal Tunnel and Trigger Finger Surgery Right Hand * Hospitalization/Major Diagno stic Procedure:?3 Vaginal Deliveries See Surgical Hx * Family History:?Mother: dece ased 87 yrs, Bronchitis, asthma.?Father: 77 yrs, [place].? * Social History:?Tobacco Use:?Tobacco Control (Standard)?Tobacco use:?Nonsmoker [...] Omeprazole 20 MG Capsule Delayed Release Oral Medication List reviewed and reconciled with the patientTaking Levothyroxine Sodium 112 MCG Capsule 1 tablet [...] Omeprazole 20 MG Capsule Delayed Release Oral Medication List reviewed and reconciled with the patient * Allergies:?N.K.D.A.no[Allerg ies Verified] Objective: * Vitals:?Ht: 66 in, Wt: 186 l bs, BMI:30.02Index, BP: 112/64 mm Hg, Temp: 97.4 F. * Examination: ???TON CONTAINER SHIPPER exam: ?EXTERNAL GENITALIA:?MARKED IMPROVEMENT IS NOTED, ONLY SLIGHT WHITENING AND THINNING ALONG THE FOURCHETTE AND ANTERIOR VULVA ARE NOTED..? Assessment: * Assessment: 1.?Lichen sclerosus et atrop hicus - L90.0 (Primary)???2.?Atrophy of vulva - N90.5??? Plan: * Treatment: 2.?Atrophy of vulva? Notes: CONTINUE APPLYING ESTRADIOL CREAM TO VULVA TWICE WEEKLY.?? * Procedure Codes:? * Follow Up:?6 Months * Images: Billing Information: * Visit Code:? * Procedure Codes:? * Sign off status: Completed true * Appointment Provider:?Kera Waldron M.D. Date:?08/18/2024 Generated for Solo martin/Michael/Sujathaitting on:?09/14/2024 09:21 AM EDT History and Physical Notes * HPI (History of Present Illness) Category Sub-Category Detail Notes Category Not es New/Follow-up Patient Consult VULVAR BIOPSY DONE I 2018 CONFIRMED THE DX OF LICHEN SCLEROSUS. SHE RESPONDED WELL TO CLOBETASOL THERAPY BUT ON HER VISIT LAST JUN 2024, RECURRENCE WAS NOTED. SHE WAS ADVISED TO APPLY CLOBETASOL OINTMENT TWICE DAILY. SHE IS HERE FOR A FOLLOW UP VISIT. Examination Category Sub-Category Detail Notes Category Not es TON CONTAINER SHIPPER exam EXTERNAL GENITALIA: MARKED IMPRO VEMENT IS NOTED, ONLY SLIGHT WHITENING AND THINNING ALONG THE FOURCHETTE AND ANTERIOR VULVA ARE NOTED.
--- OUTSIDE RECORDS SUMMARY | 2024-09-14 09:22 | XMS_ITS | Clinical Summary ---
Author Organization [facility] Address [address] [place] [address] Care Team Providers Care Utility Division Project Manager Name Role Phone CharbellesterAnabella Primary Care Provider [phone] Allergies Active Allergy Reactions Criticality Noted Date [...] 11/23/2013 Hoarseness 11/23/2013 Laryngopharyngeal reflux (LPR) 11/23/2013 Encounters Date Type Department Care Team Description 09/02/2024 12:40 PM EDT Follow-Up [facility] [address] [place] [address] Vicente Chandra MD Chronic bilateral low back pain without sciatica (Primary Dx) 09/02/2024 12:09 PM EDT - 09/02/2024 11:59 PM EDT Hospital Encounter [facility] [address] [place] [address] Vicente Chandra MD Fusion of spine of thoracolumbar region Discharge Disposition: Home or Self Care (01) from Last 3 Months Family History Medical History Relation Name Comments Cancer Brother Thyroid disease Daughter 1 No Known Problems Daughter 2 Other Mother Family history of No pertinent family history No Known Problems Son Relation Name Status Comments Brother Daughter 1 Alive Daughter 2 Alive Father Mother Son Alive Social History Tobacco Use Types Packs/Day Years [...] Info) Description 09/06/2025 12:00 PM EDT Follow-Up [facility] [address] [place] [address] Vicente Chandra MD [address] [place] [address] Health Maintenance Due Date Last Done Comments Osteoporosis Screening 11/12/1995 Zoster Vaccines (1 of 2) 11/12/1995 RSV Vaccine (60+ years old and patients) (1 - 1-dose 75+ series) 2020 DTaP,Tdap,and Td Vaccines (2 - Td or Tdap) 03/28/2021 03/28/2011 COVID-19 Vaccine ( season) 2024 03/16/2022, 03/07/2021, 07/25/2020, Additional history exists Alcohol/Substance Use Screening 05/19/2024 Depression Screening and Follow-Up 05/19/2024 Health Care Proxy Review 05/19/2024 Social Drivers of Health Annual Screening 05/19/2024 Influenza Vaccine (Season Ended) 2025 02/11/2023, 02/06/2022, 02/21/2021, Additional history exists Fall Risk Screening 09/02/2025 09/02/2024 Pneumococcal Vaccine: 50+ Years Completed 02/06/2022, 02/22/2011 Hepatitis B Vaccines Aged Out No long er eligible based on patient's age to complete this topic Medical Devices Implanted Type Area Molten Iron Pourer Device Identifier Shelf Expiration Date Model / Serial / Lot Mesh Flat [id number] - [id number] Implanted:Qty: 1 on 03/08/2020 by Brenton Horton MD at [facility] Mesh N/A: Abdomen [employer] 10/13/2024 [id number] / / [id number] Mesh Tissue Bioabsorbable [id number] Bio-A - [id number] - [id number] Implanted:Qty: 1 on 03/08/2020 by Brenton Horton MD at [facility] Mesh N/A: Abdomen W L GORE 09/05/2022 [id number] / [id number] / Procedures * Due to [place] Envysion law, this organization might not be sharing negative HIV tests. Procedure Name Priority Date/Time Associated Diagnosis Comments XR SCOLIOSIS 2-3 VIEWS Routine 09/02/2024 12:22 PM EDT Fusion of spine of thoracolumbar region from Last 3 Months Results * Due to [place] Envysion law, this organization might not be sharing [...] obtain the completed interpretation. ? Workstation ID: [id number] Narrative 09/02/2024 8:55 PM EDT COMPARISON: 07/31/2023. Resulting Agency Comment [id number] Procedure Note Chriss Kapadia MD - 09/02/2024 [...] compression fracture deformities of the T9 and [id number] bodies. There is exaggerated kyphotic curvature centered at T9. Similarbackground multilevel disc degeneration and facet arthropathy. The sacrum is obscured by overlying soft tissue structures. Osseousstructures appear demineralized. If this radiology report contains a blank impression section, it is anincomplete radiology report. Please contact the interpreting radiologistor applicable radiology division as soon as possible to obtain thecompleted interpretation. Workstation ID: [id number] Vicente Chandra MD IMG XR PROCEDURES Final Res ult from Last [address] [facility] Member Subscriber Plan / Payer (Ef fective 2010-Present) Name:Maxine De Jesus Relation to Subscriber:Self Name:Maxine De Jesus Payer ID:[id number] Type:Not on file Address: [address] [place] [id number] Advance Directives Documents on File Type Date Recorded Patient Sales Operations Consultant Expl tariq Health Care Proxy 02/10/2017 12:00 AM 01/17 * Full Code (Latest Code Status on File) Date Activated Date Inactivated Comments 03/08/2020 4:58 PM 03/09/2020 6:37 PM * Full Code Date Activated Date Inactivated Comments 03/08/2020 11:29 AM 03/08/2020 4:58 PM Care Teams Utility Division Project Manager Relationship Specialty Start Date End Date Anbaella Lopez [address] [place] [address] PCP - General 12/05/16
--- OUTSIDE RECORDS SUMMARY | 2024-09-14 09:22 | XMS_ITS | Patient Health Record ---
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) Lichen sclerosus et atrophicus (L90.0) Active confirmed Problem Atrophy of vulva (241387209) 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) Active confirmed Vital Signs Temperature 97.4 degrees Fahrenheit 08/18/2024 Blood pressure diastolic 64 mm Hg 08/18/2024 Height 66 in 08/18/2024 Blood pressure systolic 112 mm Hg 08/18/2024 Weight 186 lbs 08/18/2024 BMI 30.02 kg/m2 08/18/2024 Encounters Encounter Location Date Provider Diagnosis [facility] [address] [place] [address] 06/25/2024 Kera Waldron Encounter for gynecological examination (general) (routine) with abnormal findings Z01.411 ; Encounter for screening mammogram for malignant neoplasm of breast Z12.31 ; Lichen sclerosus et atrophicus L90.0 ; Atrophy of vulva N90.5 and Postmenopausal atrophic vaginitis N95.[address] [address] 08/18/2024 Kera Waldron Lichen sclerosus et atrophicus L90.0 and Atrophy of vulva N90.5 Assessments Encounter Date Diagnosis (ICD Code) Assessment Notes Treatment Notes Treatment Clinical Notes Section Notes 06/25/2024 Encounter for gynecological examination (general) (routine) with abnormal findings (ICD-10 - Z01.411) NO MORE PAP TESTS. 08/18/2024 Lichen sclerosus et atrophicus (ICD-10 - L90.0) DISCUSSED MARKED IMPROVEMENT AND CONGRATULATED PAT FOR HER DILIGENCE. APPLY CLOBETASOL OINTMENT TO AFFECTED AREA TWICE WEEKLY. 08/18/2024 Atrophy of vulva (ICD-10 - N90.5) CONTINUE APPLYING ESTRADIOL CREAM TO VULVA TWICE WEEKLY. 06/25/2024 Encounter for screening mammogram for malignant [...] 04/30/2021 Next Appt Details Provider Name:Kera stone, 02/28/2025 09:40:00 AM, [address] [facility], [address], [place], [address], Insurance Providers Payer Name Payer Address Payer Phone Subscriber Number Group Number Insured Name Patient Relationship to Insured Coverage Start Date Coverage End Date MEDICARE [address] [facility] [place] [id number] ROSALIO LR Self - patient is the insured MEDEX [address] [place] [address] [id number] ROSALIO LR Self - patient is [...] Colonoscopy Rectocele Repair Back Fusion Surgery 2017 Carpal Tunnel and Trigger Finger Surgery Right Hand Hospitalization History Reason Date(Month/Year) See Surgical Hx 3 Vaginal Deliveries
--- OUTSIDE RECORDS SUMMARY | 2024-09-14 09:22 | XMS_ITS ---
Author Organization [facility] Address [address] [address] Care Team Providers Care Gas Meter Reader Name Role Phone Anabella Lopez MD Primary Care Provider UnavailKera Shirley Unavailable [phone] Allergies No Known Allergies REASON FOR VISIT [...] 06/25/2024 Encounters Encounter Location Date Provider Diagnosis [facility] [address] [address] 06/25/2024 Kera Waldron Encounter for gynecological examination [...] Up: 6 Weeks, Reason: Provider Name:Kera stone, 02/28/2025 09:40:00 AM, [address] [facility] [employer], [address], [place], [address], Progress Notes * FABI LRB:1945 (78 yo F)Acc No.[id number]:06/25/2024 Patient:ROSALIO TO Appointment Provider:?Kera stone M.D. :1945???Age:78 Y???Sex:Female D ate:06/25/2024 Address:[address] [place] [address] Pcp:Anabella Lopez MD Subjective: * Chief Complaints: [...] SHE NO LONGER NEEDED COLONOSCOPIES BY HER EYEGLASS INSPECTOR. * ROS:?general:?no?chest pain.?no?palpitations.?no?headache.?no?cough.?no?shortness of breath.?no?fever.?no?unexplained weight loss.?no?nausea/vomiting.?no?change in bowel movements.?no blood in stool.?no?genitourinary complaints.?no?skin complaints.? * Medical History:? * Vibrating Screed Operator History:?/ Para?3/3.?Sexual activity?currently sexually active.?Last Pap Smear:?09/15/2014 [...] ased 87 yrs, Bronchitis, asthma.?Father: 77 yrs, [place].? * Social History:?Tobacco Use:?Tobacco Control (Standard)?Tobacco use:?Nonsmoker [...] discharge, no drainage, no masses palpable bilaterally, nontender.?SENIOR MASTER SCHEDULER exam: ?EXTERNAL GENITALIA:?WHITE THINNED OUT LESIONS ALONG [...] Waldron M.D. Date:?06/25/2024 Generated for Solo martin/Michael/Sujathaitting on:?09/14/2024 09:21 AM [...] SHE NO LONGER NEEDED COLONOSCOPIES BY HER EYEGLASS INSPECTOR. Examination Category Sub-Category Detail Notes Category Not es General Examination GENERAL APPEARANCE: in no ac [place] distress, well developed, well nourished BREASTS: normal, no dimpling, no discharge, no drainage, no masses palpable bilaterally, nontender SENIOR MASTER SCHEDULER exam CERVIX: No cervical motion tendernes s, discharge or lesions VAGINA: atrophic changes EXTERNAL GENITALIA: WHITE THINNED OUT LE SIONS ALONG THE FOURCHETTE C/W RECURRENCE OF LICHEN SCLEROSUS UTERUS: normal size, shape a nd consistency, normal mobility, nontender ADNEXA: no masses or tendern ess bilaterally
--- OUTSIDE RECORDS SUMMARY | 2024-09-14 09:22 | XMS_ITS ---
Author Organization [facility] Address [address] [facility] [address] [place] [address] Care Team Providers Care Rotary Derrick Operator Name Role Phone John RAMESH, Anabella Primary Care Provider UnavailKera Shirley Unavailable [phone] REASON FOR VISIT LICHEN FOLLOW UP Encounters Encounter Location Date Provider Diagnosis [facility] [address] [place] [address] 08/09/2024 Kera Waldron Plan Of Treatment Next Appt Details Provider Name:Kera stone, 02/28/2025 09:40:00 AM, [address] [place] [address], [address], [place], [address], Progress Notes * ROSALIO RLDOB:1945 (78 yo F)Acc No.[id number]:08/09/2024 PROGRESS NOTES Patient:?ROSALIO LR Appointment Provider:?Kera stone M.D. :1945???Age:78 Y???Sex:Female D ate:08/09/2024 Address:[address] [place], [place] [id number] Pcp:Anabella Lopez MD Subjective: * Chief Complaints: * ???1. LICHEN FOLLOW UP. * Medical History:? Objective: * Vitals:? Assessment: Plan: * Treatment: * Images: Billing Information: * Visit Code:? * Procedure Codes:? * Electronic signature of Violet Waldron MD on 09/14/2024 at 09:22 AM EDT Sign off status: Pending * Appointment Provider:?Kera Waldron M.D. Date:?08/09/2024 Generated for Solo martin/Michael/Sujathaitting on:?09/14/2024 09:22 AM EDT
== END 2024-09-14 08:52 | disposition home or self-care (01) ==
LOC: HO.HMGCLDS 08:51
PROVIDERS: PCP Internal Medicine; Visit Provider Internal Medicine
DX: Z00.00 Encounter for general adult medical examination without abnormal findings (principal); I10 Essential (primary) hypertension; E03.9 Hypothyroidism, unspecified; E78.5 Hyperlipidemia, unspecified; Z79.899 Other long term (current) drug therapy
CPT/HCPCS: 96127

== ENCOUNTER 2024-09-14 09:06 | Outpatient (AMB) | payer MEDICARE, SELFPAY ==
[2024-09-14 09:29] VITALS: BP 118/76; PULSE 74; RESP 18; TEMP 36.8; O2SAT 100; BMI 29.4
--- NOTE | 2024-09-14 09:29 | MHC.PC.OV ---
Vital Signs 09/14/24 09:29 Height 5 ft 6 in Intake Visit Reasons: SWV [id number] Allergies lisinopril Allergy (Unknown, Verified 06/17/24 10:46) hyperkalemia amlodipine Adverse Reaction (Verified 06/17/24 10:46) swelling in hands and legs Tobacco use date assessed: 06/17/24 Dental Screening Dental Screen Date: 06/17/24 [facility] Medical History Vitamin D deficiency Normal pelvic exam Annual physical exam Leg edema Bacteriuria Hiatal hernia Hypothyroidism Hyperlipidemia Lumbar radiculopathy Surgical History History of esophagogastroduodenoscopy (EGD) H/O colonoscopy History of spinal surgery Family History Father No problems noted. Mother No problems noted. Social History Housing: House Alcohol intake: current Alcohol intake frequency: holidays/special occasions only Patient Tobacco Use Status: Never used Tobacco e-Cigarette/Vaping Use: Never Used service: No Current occupational status: retired Cognitive needs: No Hearing needs: No Vision needs: No Questionnaire PHQ-9 Over the last 2 weeks, how often have you been bothered by any of the following problems? 2. Feeling down, depressed, or hopeless: not at all 5. Poor appetite or overeating: not at all Source: Developed by Drs. Michael Cuevas, Mercedes Costello, Geraldo Hartley and colleagues, with an educational garima from [employer]. Thrive Questionnaire Date Thrive assessed: 06/17/24 I am a: Patient What is your living situation today?: I have a steady place to live Within the past 12 months, did the food you bought not last and you didn't have the money to get more?: Never true Within the past 12 months, did you worry whether your food would run out before you got money to buy more?: Never true Do you have trouble paying for medicines?: No Do you have trouble getting transportation to medical appointments?: No Do you have trouble paying your heating and electricity bill?: No Do you have trouble taking care of your child, family member or friend?: No THRIVE Score: 0 JUDY-7 AMB Questionnaire JDUY-7 Date JUDY - 7 assessed: 02/09/24 Source: Developed by Drs. Michael Cuevas, Mercedes Costello, Geraldo Hartley and colleagues, with an educational garima from [employer]. Physical exam (Primary Care) Tobacco/Smoking Status: Tobacco use Status Tobacco use date assessed 06/17/24 06/17/24 10:49 Patient Tobacco Use Status Never used Tobacco 06/17/24 10:49 e-Cigarette/Vaping Use Never Used 06/17/24 10:39 Thrive Assessment: Date of Thrive Assessment Date Thrive assessed 06/17/24 06/17/24 10:39 Coding
--- NOTE | 2024-09-14 09:30 | A.OFFVIS_ITS ---
Intake Vital Signs 09/14/24 09:29 Height 5 ft 6 in Weight 182 lb BMI 29.4 BP 118/76 Blood Pressure Location Lt brachial Position Sitting Respiration 18 Pulse 74 Pulse Source Pulse Oximeter Temp 98.3 F Temp Source Oral Pulse Oximetry (%) 100 Oxygen Delivery Method Room Air Intake Visit Reasons: SWV G0439 Allergies lisinopril Allergy (Unknown, Verified 09/14/24 09:34) hyperkalemia amlodipine Adverse Reaction (Verified 09/14/24 09:34) swelling in hands and legs HPI SWV G0439 HPI Details Initiated the conversation about Advanced Directives. Advanced Directives help? patients prepare for current and future decisions about their medical treatment? and place of care. Discussed with patient that it is a process where a patients? current condition and prognosis are reviewed, their wishes for information? regarding their illness are elicited, and likely medical dilemmas are presented? and options discussed. The form can be amended as needed, reviewed yearly and? make changes as needed IPPE/AWV ? year old presents? for her ? Annual? Wellness Visit, initial visit.? Medical / Social History Reviewed? Past Medical History ?Yes? . ? [place]? of Care / Care Team list updated ?Yes . ? Surgical/Hospitalization? History ?Yes . ? Current Medications? (including OTC and supplements) ?Yes . ? Family History ?Yes? . ? Tobacco? Control form ?Yes . ? AUDIT-C (Alcohol use) form? ?Yes . ? Illicit drug use in Social? History ?Yes . ? Current diagnosis of? depression? ?No ? Appropriate PHQ2/PHQ9? completed ?Yes . ? Data entered by ?Medical? Electrical Wiring Lineman and reviewed by provider ? Fall Risk ? Fall? History? Have you had any falls with? injury in the past year? ?No . ? Have you had two or more? falls in the past year? ?No . ? Fall Risk Assessment: ?No? falls in the past year . ? HRA filled out by? the patient, reviewed by Provider and scanned. ? IPPE/AWV ? Balance? [place]? ?Yes . ? Tandem? walk ?Yes . ? Walk and? Turn ?Yes . ? Rise from? sit to stand ?Yes . ?Vision? Corrective? lens ?Yes ? Vision? screen ? Up-to-date, has an appointment [] for vision? screening and glaucoma screening ?Hearing? Whisper? test ?pass .? Initiated the conversation about Advanced Directives. Advanced Directives help? patients prepare for current and future decisions about their medical treatment? and place of care. Discussed with patient that it is a process where a patients? current condition and prognosis are reviewed, their wishes for information? regarding their illness are elicited, and likely medical dilemmas are presented? and options discussed. The form can be amended as needed, reviewed yearly and? make changes as needed Written? Plan?Completed. See Patient? Documents. REPLACED BY [facility] Medical History Vitamin D deficiency Normal pelvic exam Annual physical exam Leg edema Bacteriuria Hiatal hernia Hypothyroidism Hyperlipidemia Lumbar radiculopathy Surgical History History of esophagogastroduodenoscopy (EGD) H/O colonoscopy History of spinal surgery Family History Father No problems noted. Mother No problems noted. Social History Housing: House Alcohol intake: current Alcohol intake frequency: holidays/special occasions only Patient Tobacco Use Status: Never used Tobacco e-Cigarette/Vaping Use: Never Used service: No Current occupational status: retired Cognitive needs: No Hearing needs: No Vision needs: No Questionnaire Medicare Wellness Checkup [age] What gender do you identify with?: female During the past 4 weeks, how much have you been bothered by emotional problems such as feeling anxious, depressed, irritable, sad or downhearted, and blue?: not at all During the past 4 weeks, has your physical & emotional health limited your social activities with family, friends, neighbors, or groups?: not at all During the past 4 weeks, how much bodily pain have you generally had?: very mild pain During the past 4 weeks, was someone available to help you if you needed & wanted help?: no, not at all During the past 4 weeks, what was the hardest physical activity you could do for at least 2 minutes?: very light Can you get to places out of walking distance without help? (For eg., can you travel alone on buses, taxis or drive your car?): Yes Can you go shopping for groceries or clothes without someone's help?: Yes Can you prepare your own meals?: Yes Can you do your housework without help?: Yes Because of any health problems, do you need the help of another person with your personal care needs such as eating, bathing, dressing or getting around the house?: No Can you handle your own money without help?: Yes During the past 4 weeks, how would you rate your health in general?: very good During the past 4 weeks how have things been going for you?: very well; could hardly better Are you having difficulties driving your car?: not applicable, I don't use a car Do you always fasten your seat belt when you are in a car?: yes, usually During past 4 weeks, have you been bothered by the following: never: Falling or dizzy when standing up, Sexual problems?, Trouble eating well?, Teeth or denture problems?, Problems using the telephone? and Tiredness or fatigue? Have you fallen 2 or more times in the past year?: No Are you afraid of falling?: No Are you a smoker?: no During the past 4 weeks, how many drinks of wine, beer, or other alcoholic beverages did you have?: no alcohol at all Do you exercise for about 20 minutes 3 or more times a week?: yes, some of the time Have you been given information to help with the following?: yes: Keeping track of your medications? and no: Hazards in your house that might hurt you? How often do you have trouble taking medicines the way you have been told to take them?: I always take medicine as prescribed How confident are you that you can control & manage most of your health problems?: very confident What is your race?: White Mini Mental State Exam (MMSE) Orientation What is the (year) (season) (date) (day) (month)?: year, season, date, day and [facility] Where are we (state) (county) (town or city) (hospital) (floor)?: state, county, town or city, hospital/clinic and floor Attention & Calculation (CHOOSE ONE) Spell WORLD backwards (DLROW): 5 letters Recall Ask patient to repeat the 3 items from question #3.: object 1, object 2 and object 3 Language Show patient a wristwatch & ask what it is. Repeat for pencil.: watch and pencil Ask the patient to repeat the phrase 'No ifs, ands, or buts' after you.: correct Ask the patient to 'take a piece of paper with their right hand' 'fold paper in half' 'place paper on floor': take paper in right hand, fold paper in half and place paper on floor Print the sentence 'CLOSE YOUR EYES' on a piece. If patient actually closes eyes then score.: followed written direction Give patient a blank piece of paper & ask to write a sentence. Score if it contains a noun & verb.: sentence contains subject and verb Score Score: 26 PHQ-9 Over the last 2 weeks, how often have you been bothered by any of the following problems? 1. Little interest or pleasure in doing things: not at all 2. Feeling down, depressed, or hopeless: not at all 3. Trouble falling or staying asleep, or sleeping too much: not at all 4. Feeling tired or having little energy: not at all 5. Poor appetite or overeating: not at all 6. Feeling bad about yourself - or that you are a failure or have let yourself or your family down: not at all 7. Trouble concentrating on things, such as reading the newspaper or watching television: not at all 8. Moving or speaking so slowly that other people could have noticed. Or the opposite - being so fidgety or restless that you have been moving around a lot more than usual: not at all 9. Thoughts that you would be better off or of hurting yourself in some way: not at all Total score: 0 Depression Screening Interpretation: Negative Depression Screening Done: Yes 50351 - PHQ-9 Billing: Yes Source: Developed by Drs. Michael Cuevas, Mercedes Costello, Geraldo Hartley and colleagues, with an educational garima from [employer] Review of Systems Const All systems reviewed & are unremarkable except as noted in HPI and below Reports no additional complaints Eyes Reports no additional complaints ENT Reports no additional complaints Card Reports no additional complaints Resp Reports no additional complaints GI Reports no additional complaints Reports no additional complaints Physical Exam Vital Signs: Last Vital Signs Temp 98.3 F 09/14/24 09:29 Pulse 74 09/14/24 09:29 Resp 18 09/14/24 09:29 BP 118/76 09/14/24 09:29 Pulse Ox 100 09/14/24 09:29 Oxygen Delivery Method Room Air 09/14/24 09:29 BMI result Body Mass Index 29.4 Const General: no acute distress HEENT Head: Yes normal to inspection Ears: hearing grossly normal bilaterally Neck Neck: Yes supple Resp Effort & Inspection: normal respiratory effort Auscultation: clear to auscultation bilaterally Cardio Rhythm: regular rhythm Heart sounds: S1 normal heart sound present and S2 normal heart sound present GI Inspection: Yes normal to inspection Palpation (GI): Soft to palpation Percussion: Yes normal to percussion Auscultation: normal bowel sounds Extrem General: Yes no clubbing, cyanosis or edema Assessment & Plan Assessment & Plan (1) HTN (hypertension): Code(s): I10 - Essential (primary) hypertension Plan: Continue hydrochlorothiazide. Patient will return for fasting blood work at [facility] (2) Annual physical exam: Code(s): Z00.00 - Encounter for general adult medical examination without abnormal findings Plan: well balanced diet, regular exercise discussed (3) Hypothyroidism: Comment: f/u with Endo Code(s): E03.9 - Hypothyroidism, unspecified Plan: Continue levothyroxine check TSH (4) Hyperlipidemia: Code(s): E78.5 - Hyperlipidemia, unspecified Plan: Continue statin Medications: Refilled gabapentin 600 mg PO Q8H 270 tabs 3RF omeprazole 20 mg PO DAILY 90 caps 3RF atorvastatin 10 mg PO DAILY 90 tabs 3RF hydrochlorothiazide 12.5 mg PO QAM 90 tabs 3RF levothyroxine 112 mcg PO DAILY 90 tabs 3RF Quality Reporting (2019) Depression/Bipolar (159/160/161/177) PHQ-9: Total score: 0 Coding Level of Care Code Medicare Subsequent (G0439) Diagnoses HTN (hypertension) I10 Annual physical exam Z00.00 Hypothyroidism E03.9 Hyperlipidemia E78.5 CPT Codes Advance Care Planning - Advance Care Planning discussion: On file, no changes ([id number]) Advance Care Planning - Time spent: 1-15 minutes, on File ([id number]) Additional Codes PHQ-9 - 60608 - PHQ-9 Billing: Yes ([id number]) Advance Care Planning Advance Care Planning discussion: On file, no changes Forms completed: Health Care Proxy Time spent: 1-15 minutes, on File Did not discuss due to Cultural/Spiritual beliefs: Yes
--- OUTSIDE RECORDS SUMMARY | 2024-09-14 09:51 | XMS_ITS | Clinical Summary ---
Author Organization [facility] Address [address] [place] [address] Care Team Providers Care Yarding Engineer Name Role Phone CharbellesterAnabella Primary Care Provider [phone] Allergies Active Allergy Reactions Criticality Noted Date [...] Team Description 09/02/2024 12:40 PM EDT Follow-Up [facility] [address] [place] [address] Vicente Chandra MD Chronic bilateral low back pain without sciatica (Primary Dx) 09/02/2024 12:09 PM EDT - 09/02/2024 11:59 PM EDT Hospital Encounter [facility] XRay [address] [place] [address] Vicente Chandra MD Fusion of spine of [...] Info) Description 09/06/2025 12:00 PM EDT Follow-Up [facility] [address] [place] [address] Vicente Chandra MD [address] [place] [address] Health Maintenance Due Date Last Done Comments [...] this topic Medical Devices Implanted Type Area Positive Printer Operator Device Identifier Shelf Expiration Date Model / Serial / Lot Mesh Flat [id number] - [id number] Implanted:Qty: 1 on 03/08/2020 by Brenton Horton MD at [facility] Mesh N/A: Abdomen [employer] 10/13/2024 [id number] / / [id number] Mesh Tissue Bioabsorbable [id number] Bio-A - [id number] - [id number] Implanted:Qty: 1 on 03/08/2020 by Brenton Horton MD at [facility] Mesh N/A: Abdomen W L GORE 09/05/2022 [id number] / [id number] / Procedures * Due to [employer] [place] [employer] law, this organization might not be sharing negative HIV tests. Procedure Name Priority Date/Time Associated Diagnosis Comments XR SCOLIOSIS 2-3 VIEWS Routine 09/02/2024 12:22 PM EDT Fusion of spine of thoracolumbar region from Last 3 Months Results * Due to [place] [employer] law, this organization might not be sharing [...] obtain the completed interpretation. ? Workstation ID: [id number] Narrative 09/02/2024 8:55 PM EDT COMPARISON: 07/31/2023. Resulting Agency Comment [id number] Procedure Note Chriss Kapadia MD - 09/02/2024 [...] compression fracture deformities of the T9 and N6izvyebwfj bodies. There is exaggerated kyphotic curvature centered at T9. Similarbackground multilevel disc degeneration and facet arthropathy. The sacrum is obscured by overlying soft tissue structures. Osseousstructures appear demineralized. If this radiology report contains a blank impression section, it is anincomplete radiology report. Please contact the interpreting radiologistor applicable radiology division as soon as possible to obtain thecompleted interpretation. Workstation ID: [id number] Vicente Chandra MD IMG XR PROCEDURES Final Res ult from Last 3 Months Insurance MEDICARE [facility] Member Subscriber Plan / Payer (Ef fective 2010-Present) Name:Maxine De Jesus Relation to Subscriber:Self Name:Maxine De Jesus Payer ID:[id number] Type:Not on file Address: [id number] [place] [id number] Advance Directives Documents on File Type Date Recorded Patient Chief Mechanical Officer Expl tariq Health Care Proxy 02/10/2017 12:00 AM 01/17 * Full Code (Latest Code Status on File) Date Activated Date Inactivated Comments 03/08/2020 4:58 PM 03/09/2020 6:37 PM * Full Code Date Activated Date Inactivated Comments 03/08/2020 11:29 AM 03/08/2020 4:58 PM Care Teams Yarding Engineer Relationship Specialty Start Date End Date Anabella Lopez [address] [place] [address] PCP - General 12/05/16
--- OUTSIDE RECORDS SUMMARY | 2024-09-14 09:51 | XMS_ITS | Referral Summary ---
Author Organization [facility] Address [address] [place] [address] Care Team Providers Care Deli Clerk Name Role Phone JohnAnabella Primary Care Provider [phone] Encounters Date Type Department Care Team Description 09/02/2024 12:09 PM EDT - 09/02/2024 11:59 PM EDT Hospital Encounter [facility] XRay [address] [place] [address] Vicente Chandra MD Fusion of spine of thoracolumbar region Discharge Disposition: Home or Self Care (01) 09/02/2024 12:40 PM EDT Follow-Up [facility] [address] [place] [address] Vicente Chandra MD Chronic bilateral low back [...] Info) Description 09/06/2025 12:00 PM EDT Follow-Up [facility] [address] [place] [address] Vicente Chandra MD [address] [place] [id number] Medical Devices Implanted Type Area Editor Sound Device Identifier Shelf Expiration Date Model / Serial / Lot Mesh Flat [id number] - [id number] Implanted:Qty: 1 on 03/08/2020 by Brenton Horton MD at [facility] Mesh N/A: Abdomen [employer] 10/13/2024 [id number] / / [id number] Mesh Tissue Bioabsorbable [id number] Bio-A - [id number] - [id number] Implanted:Qty: 1 on 03/08/2020 by Brenton Horton MD at [facility] Mesh N/A: Abdomen W L GORE 09/05/2022 [id number] / [id number] / Procedures * Due to [facility] law, this organization might not be sharing negative HIV tests. Procedure Name Priority Date/Time Associated Diagnosis Comments XR SCOLIOSIS 2-3 VIEWS Routine 09/02/2024 12:22 PM EDT Fusion of spine of thoracolumbar region from Last 3 Months Results * Due to [place] [employer] law, this organization might not be sharing [...] obtain the completed interpretation. ? Workstation ID: [id number] Narrative 09/02/2024 8:55 PM EDT COMPARISON: 07/31/2023. Resulting Agency Comment [id number] Procedure Note Chriss Kapadia MD - 09/02/2024 [...] compression fracture deformities of the T9 and P1tlgogzmlz bodies. There is exaggerated kyphotic curvature centered at T9. Similarbackground multilevel disc degeneration and facet arthropathy. The sacrum is obscured by overlying soft tissue structures. Osseousstructures appear demineralized. If this radiology report contains a blank impression section, it is anincomplete radiology report. Please contact the interpreting radiologistor applicable radiology division as soon as possible to obtain thecompleted interpretation. Workstation ID: [id number] Vicente Chandra MD IMG XR PROCEDURES Final Res ult from Last [address] [facility] Advance Directives Documents on File Type Date Recorded Patient Auto Rental Clerk Expl [facility] Care Proxy 02/10/2017 12:00 AM 01/17 * Full Code (Latest Code Status on File) Date Activated Date Inactivated Comments 03/08/2020 4:58 PM 03/09/2020 6:37 PM * Full Code Date Activated Date Inactivated Comments 03/08/2020 11:29 AM 03/08/2020 4:58 PM Care Teams Deli Clerk Relationship Specialty Start Date End Date Anabella Lopez [address] [place] [address] PCP - General 12/05/16
== END 2024-09-14 10:33 | disposition home or self-care (01) ==
LOC: HO.HMCC 09:08
PROVIDERS: PCP Internal Medicine; Visit Provider Internal Medicine
DX: Z00.00 Encounter for general adult medical examination without abnormal findings (principal); I10 Essential (primary) hypertension; E03.9 Hypothyroidism, unspecified; E78.5 Hyperlipidemia, unspecified

== ENCOUNTER 2024-11-02 13:53 | Outpatient (AMB) | payer MEDICARE, SELFPAY ==
--- NOTE | 2024-11-02 13:54 | A.OFFPC_ITS ---
Intake Visit Reasons: Follow up on labs discuss thyroid med Allergies lisinopril Allergy (Unknown, Verified 11/02/24 13:54) hyperkalemia amlodipine Adverse Reaction (Verified 11/02/24 13:54) swelling in hands and legs Medication List - Last Reconciled 11/02/24 by Anabella Lopez MD ascorbate calcium (vitamin C) 500 mg PO DAILY atorvastatin 10 mg PO DAILY baclofen 10 mg PO BEDTIME cholecalciferol (vitamin D3) 25 mcg PO DAILY gabapentin 600 mg PO Q8H hydrochlorothiazide 12.5 mg PO QAM ibuprofen 800 mg PO Q8H levothyroxine 125 mcg PO DAILY lidocaine 5% 1 ea topical BID uz-txlrexu-ooo-iron fm-FA-vitK 18 mg-400 mcg- 25 mcg (One-A-Day Women's Complete(with vit K)) tabs PO omeprazole 20 mg PO DAILY trazodone 50 mg PO BEDTIME Tobacco use date assessed: 11/02/24 Fall risk assessment: No Falls in past year Last assessed Fall Risk: 11/02/24 Dental Screening Dental Screen Date: 11/02/24 Did you have a dental visit in the last 12 months?: Yes Did you have a dental problem in the last 6 months where you did not have access to dental care?: No Was dental information given to patient?: Patient has dentist HPI Follow up on labs discuss thyroid med HPI Details This is the her visit. It is a follow-up for hypothyroidism. Patient reports feeling more tired complains of dry skin and chronic constipation for the last 2 months. She has been taking levothyroxine 112 mcg regularly. Patient is being evaluated by immigration lawyer for thyroid goiter with enlarging thyroid nodule. Hypertension is controlled on current medications [facility] Medical History Vitamin D deficiency Normal pelvic exam Annual physical exam Leg edema Bacteriuria Hiatal hernia Hypothyroidism Hyperlipidemia Lumbar radiculopathy Surgical History History of esophagogastroduodenoscopy (EGD) H/O colonoscopy History of spinal surgery Family History Father No problems noted. Mother No problems noted. Social History Housing: House Alcohol intake: current Alcohol intake frequency: holidays/special occasions only Patient Tobacco Use Status: Never used Tobacco e-Cigarette/Vaping Use: Never Used service: No Current occupational status: retired Current occupational exposures/hazards: No Cognitive needs: No Hearing needs: No Vision needs: No Questionnaire Thrive Questionnaire Date Thrive assessed: 06/17/24 JUDY-7 AMB Questionnaire JUDY-7 Date JUDY - 7 assessed: 02/09/24 Source: Developed by Drs. Michael Cuevas, Mercedes Costello, Geraldo Hartley and colleagues, with an educational garima from [employer]. Review of Systems Const All systems reviewed & are unremarkable except as noted in HPI and below ENT Reports no additional complaints Card Reports no additional complaints Resp Reports no additional complaints GI Reports no additional complaints Physical exam (Primary Care) Tobacco/Smoking Status: Tobacco use Status Tobacco use date assessed 11/02/24 11/02/24 13:55 Patient Tobacco Use Status Never used Tobacco 11/02/24 13:55 e-Cigarette/Vaping Use Never Used 11/02/24 13:55 Thrive Assessment: Date of Thrive Assessment Date Thrive assessed 06/17/24 11/02/24 13:55 Telehealth Telehealth Telehealth Platform: Telephone Location of provider rendering services: practice address Location of patient: address on file Patient Identification confirmed using: Name, : Yes Telehealth method: video Patient verbally consented to treatment: Yes Patient verbally consented to billing insurance company: Yes Patient informed of any privacy concerns related to visit: Yes Minutes spent on Phone/Video with Pt.: 15 Coding Level of Care Code Tele Est Pt Level 3 (58605) Diagnoses Hypothyroidism E03.9 Assessment & Plan Assessment & Plan (1) Hypothyroidism: Comment: f/u with Endo for multinodular goiter Code(s): E03.9 - Hypothyroidism, unspecified Category: Medical Plan: TSH in September was 3.6.Levothyroxine will be increased to 125 mcg daily and TSH with free T4 checked in 2 months. Patient will continue to follow-up with the immigration lawyer for multinodular goiter and is going to [facility] for 2nd opinion Orders: Orders TSH reflex Free T4 2 Months E03.9 - Hypothyroidism, unspecified Medications: New levothyroxine 125 mcg PO DAILY 90 tabs 0RF Discontinued levothyroxine Discontinued Reason: Doctor's Order 112 mcg PO DAILY 90 tabs 3RF
--- OUTSIDE RECORDS SUMMARY | 2024-11-02 15:54 | XMS_ITS | Referral Summary ---
Author Organization [facility] Address [address] [place] [address] Care Team Providers Care Functional Manager Name Role Phone KevanmitzilesterAnabella Primary Care Provider [phone] Encounters Date Type Department Care Team Description 09/02/2024 12:09 PM EDT - 09/02/2024 11:59 PM EDT Hospital Encounter [facility] XRay [address] [place] [address] Vicente Chandra MD Fusion of spine of thoracolumbar region Discharge Disposition: Home or Self Care (01) 09/02/2024 12:40 PM EDT Follow-Up [facility] [address] [place] [address] Vicente Chandra MD Chronic bilateral low back [...] 09/06/2025 12:00 PM EDT Follow-Up [facility] [address] [place] [address] Vicente Chandra MD [address] [place] [id number] Medical Devices Implanted Type Area Crew Person Device Identifier Shelf Expiration Date Model / Serial / Lot Mesh Flat [id number] - [id number] Implanted:Qty: 1 on 03/08/2020 by Brenton Horton MD at [facility] Mesh N/A: Abdomen CR [employer] 10/13/2024 [id number] / / [id number] Mesh Tissue Bioabsorbable [id number] Bio-A - [id number] - [id number] Implanted:Qty: 1 on 03/08/2020 by Brenton Horton MD at [facility] Mesh N/A: Abdomen W L GORE 09/05/2022 [id number] / [id number] / Procedures * Due to [facility] law, this organization might not be sharing negative HIV tests. Procedure Name Priority Date/Time Associated Diagnosis Comments XR SCOLIOSIS 2-3 VIEWS Routine 09/02/2024 12:22 PM EDT Fusion of spine of thoracolumbar region from Last 3 Months Results * Due to [place] [employer] law, this organization might not be sharing [...] obtain the completed interpretation. ? Workstation ID: [id number] Narrative 09/02/2024 8:55 PM EDT COMPARISON: 07/31/2023. Resulting Agency Comment [id number] Procedure Note Chriss Kapadia MD - 09/02/2024 [...] compression fracture deformities of the T9 and V5yagcbytrx bodies. There is exaggerated kyphotic curvature centered at T9. Similarbackground multilevel disc degeneration and facet arthropathy. The sacrum is obscured by overlying soft tissue structures. Osseousstructures appear demineralized. If this radiology report contains a blank impression section, it is anincomplete radiology report. Please contact the interpreting radiologistor applicable radiology division as soon as possible to obtain thecompleted interpretation. Workstation ID: [id number] us Vicente Chandra MD IMG XR PROCEDURES Final Res ult from Last 3 Months Insurance MEDICARE [facility] Advance Directives Documents on File Type Date Recorded Patient Pan Helper Expl [facility] Care Proxy 02/10/2017 12:00 AM 01/17 * Full Code (Latest Code Status on File) Date Activated Date Inactivated Comments 03/08/2020 4:58 PM 03/09/2020 6:37 PM * Full Code Date Activated Date Inactivated Comments 03/08/2020 11:29 AM 03/08/2020 4:58 PM Care Teams Functional Manager Relationship Specialty Start Date End Date Anabella Lopez [address] [place] [address] PCP - General 12/05/16
== END 2024-11-02 14:27 | disposition home or self-care (01) ==
PROVIDERS: PCP Internal Medicine; Visit Provider Internal Medicine
DX: E03.9 Hypothyroidism, unspecified (principal)

== ENCOUNTER → 2024-11-02 13:53 | Outpatient (BNVA) | payer MEDICARE, SELFPAY | PROVIDERS: PCP Internal Medicine; Visit Provider Internal Medicine ==

== ENCOUNTER 2024-11-25 08:51 | Outpatient (AMB) | payer MEDICARE, SELFPAY ==
[2024-11-25 08:55] VITALS: BP 110/68; PULSE 88; RESP 18; TEMP 36.9; O2SAT 98; BMI 29.5
--- NOTE | 2024-11-25 08:55 | A.OFFPC_ITS ---
Vital Signs 11/25/24 08:55 Height 5 ft 6 in Weight 183 lb BMI 29.5 BP 110/68 Blood Pressure Location Lt brachial Position Sitting Respiration 18 Pulse 88 Pulse Source Pulse Oximeter Temp 98.4 F Temp Source Oral Pulse Oximetry (%) 98 Oxygen Delivery Method Room Air Intake Visit Reasons: Headaches Intake Note: Pt is here today for a sick visit. Pt c/o headaches on the back of her head. Allergies lisinopril Allergy (Unknown, Verified 11/02/24 13:54) hyperkalemia amlodipine Adverse Reaction (Verified 11/02/24 13:54) swelling in hands and legs Medication List - Last Reconciled 11/25/24 by Anabella Lopez MD ascorbate calcium (vitamin C) 500 mg PO DAILY atorvastatin 10 mg PO DAILY baclofen 10 mg PO BEDTIME cholecalciferol (vitamin D3) 25 mcg PO DAILY gabapentin 600 mg PO Q8H hydrochlorothiazide 12.5 mg PO QAM ibuprofen 800 mg PO Q8H levothyroxine 125 mcg PO DAILY lidocaine 5% 1 ea topical BID jp-qsxzawq-ksh-iron fm-FA-vitK 18 mg-400 mcg- 25 mcg (One-A-Day Women's Complete(with vit K)) tabs PO omeprazole 20 mg PO DAILY Tobacco use date assessed: 11/02/24 Dental Screening Dental Screen Date: 11/02/24 HPI Headaches HPI Details Patient complains of new onset daily headaches starting in the back of her head radiating to occipital region occasionally waking patient up at night. She reports intermittent blurry vision and difficulty with the balance when walking but no falling. Patient reports some nausea but not vomiting weakness or numbness in extremities. Patient denies fever chills or neck stiffness. Her mother was diagnosed with stroke and aneurysm. She denies insomnia or increased stress. [facility] Medical History (Updated 11/25/24 @ 13:39 by Anabella Lopez MD) Vitamin D deficiency Normal pelvic exam Annual physical exam Leg edema Bacteriuria Hiatal hernia Hypothyroidism Hyperlipidemia Lumbar radiculopathy Surgical History History of esophagogastroduodenoscopy (EGD) H/O colonoscopy History of spinal surgery Family History Father No problems noted. Mother No problems noted. Social History Housing: House Alcohol intake: current Alcohol intake frequency: holidays/special occasions only Patient Tobacco Use Status: Never used Tobacco e-Cigarette/Vaping Use: Never Used service: No Current occupational status: retired Current occupational exposures/hazards: No Cognitive needs: No Hearing needs: No Vision needs: No Questionnaire Thrive Questionnaire Date Thrive assessed: 06/17/24 I am a: Patient What is your living situation today?: I have a steady place to live Within the past 12 months, did the food you bought not last and you didn't have the money to get more?: Never true Within the past 12 months, did you worry whether your food would run out before you got money to buy more?: Never true Do you have trouble paying for medicines?: No Do you have trouble getting transportation to medical appointments?: No Do you have trouble paying your heating and electricity bill?: No Do you have trouble taking care of your child, family member or friend?: No THRIVE Score: 0 JUDY-7 AMB Questionnaire JUDY-7 Date JUDY - 7 assessed: 02/09/24 Source: Developed by Drs. Michael Cuevas, Mercedes Costello, Geraldo Hartley and colleagues, with an educational garima from [employer]. Review of Systems Const All systems reviewed & are unremarkable except as noted in HPI and below ENT Reports no additional complaints Card Reports no additional complaints Resp Reports no additional complaints GI Reports no additional complaints Reports no additional complaints Physical exam (Primary Care) Vital Signs: Last Vital Signs Temp 98.4 F 11/25/24 08:55 Pulse 88 11/25/24 08:55 Resp 18 11/25/24 08:55 BP 110/68 11/25/24 08:55 Pulse Ox 98 11/25/24 08:55 Oxygen Delivery Method Room Air 11/25/24 08:55 BMI result Body Mass Index 29.5 Tobacco/Smoking Status: Tobacco use Status Tobacco use date assessed 11/02/24 11/25/24 09:00 Patient Tobacco Use Status Never used Tobacco 11/25/24 09:00 e-Cigarette/Vaping Use Never Used 11/25/24 09:00 Thrive Assessment: Date of Thrive Assessment Date Thrive assessed 06/17/24 11/25/24 09:00 Const General: no acute distress HENMT Head: Yes normal to inspection Ears: TM's normal bilaterally Face and sinus: Yes normal facial exam Throat: Yes posterior oropharynx normal Eyes General: appearance normal, both eyes and all related structures Neck Neck: Yes no lymphadenopathy and Yes supple Resp Effort & Inspection: normal respiratory effort Auscultation: clear to auscultation bilaterally Cardio Rhythm: regular rhythm Heart sounds: S1 normal heart sound present and S2 normal heart sound present GI Inspection: Yes normal to inspection Neuro Cranial nerves: Yes CN's II-XII intact bilaterally Cognition (Neuro): normal cognition Gait exam (Neuro): Normal gait present Motor exam (neuro): 5/5 motor strength present throughout Romberg Test: Positive (To the right) Extrem General: Yes no clubbing, cyanosis or edema Immunizations pneumoc 20-jodie conj-dip cr(PF) 0.5 mL IM syringe Performing Provider: Anabella Lopez MD Performing Location: [facility] Administered by: MILLER Rasmussen on 11/25/24 09:32 Dose Route Admin Location Dispensed Lot Number Expiration Date [facility] Rides Supervisor 0.5 mL IM Left Deltoid 0.5 mL [id number] 11/15/25 1188-3074-65 [email or web address] Total Dispensed Waste 0.5 mL 0 % VIS Given Date VIS Provided VIS Publication Date 11/25/24 Single Vaccine 24 Eligibility Eligibility Date Funding Source Not [facility] Eligible 11/25/24 Private Coding Level of Care Code Est Pt Level 3 (19425) Diagnoses CVA (cerebral vascular accident) I63.9 New onset headache R51.9 Assessment & Plan Assessment & Plan (1) CVA (cerebral vascular accident): Code(s): I63.9 - Cerebral infarction, unspecified Category: Medical Plan: check brain CT and CTA (2) New onset headache: Code(s): R51.9 - Headache, unspecified Category: Medical Plan: For new onset headache obtain CT of the brain and CT angiogram to rule out aneurysm for the family history of aneurysm. Orders: Orders CT angio head neck Today I63.9 - Cerebral infarction, unspecified Blood Urea Nitrogen Today I63.9 - Cerebral infarction, unspecified CT head/brain wo IV con Today I63.9 - Cerebral infarction, unspecified Creatinine Today I63.9 - Cerebral infarction, unspecified Pneumococcal 20 Immunization Today Z23 - Encounter for immunization Medications: Refilled baclofen 10 mg PO BEDTIME 90 tabs 0RF Discontinued trazodone Discontinued Reason: Change Referral Type 50 mg PO BEDTIME 30 tabs 0RF
--- OUTSIDE RECORDS SUMMARY | 2024-11-25 09:10 | XMS_ITS | Referral Summary ---
Author Organization [facility] Address [address] [place] [address] Care Team Providers Care Mail Officer Name Role Phone KevanmitzilesterAnabella Primary Care Provider [phone] Encounters Date Type Department Care Team Description 09/02/2024 12:09 PM EDT - 09/02/2024 11:59 PM EDT Hospital Encounter [facility] Xray [address] [place] [address] Vicente Chandra MD Fusion of spine of thoracolumbar region Discharge Disposition: Home or Self Care (01) 09/02/2024 12:40 PM EDT Follow-Up [facility] [address] [place] [address] Vicente Chandra MD Chronic bilateral low back [...] 71 03/09/2020 8:32 AM EDT Temperature 37.2 C (99 F) 03/09/2020 8:32 AM EDT Respiratory Rate 20 [...] Info) Description 09/06/2025 12:00 PM EDT Follow-Up [facility] [address] [place] [id number] Vicente Chandra MD [address] [place] [address] Medical Devices Implanted Type Area Cessation Systems Outreach Specialist Device Identifier Shelf Expiration Date Model / Serial / Lot Mesh Flat [id number] - [id number] Implanted:Qty: 1 on 03/08/2020 by Brenton Horton MD at [facility] Mesh N/A: Abdomen CR [employer] 10/13/2024 [id number] / / [id number] Mesh Tissue Bioabsorbable [id number] Bio-A - [id number] - [id number] Implanted:Qty: 1 on 03/08/2020 by Brenton Horton MD at [facility] Mesh N/A: Abdomen W L GORE 09/05/2022 [id number] / [id number] / Procedures * Due to [facility] law, this organization might not be sharing negative HIV tests. Procedure Name Priority Date/Time Associated Diagnosis Comments XR SCOLIOSIS 2-3 VIEWS Routine 09/02/2024 12:22 PM EDT Fusion of spine of thoracolumbar region from Last 3 Months Results * Due to [place] [employer] law, this organization might not be sharing negative HIV tests. * X-Ray Scoliosis Standing AP and Lateral (09/02/2024 12:22 PM EDT) Anatomical Region Laterality Modality Spine Computed Radiogr aphy 09/02/2024 8:50 PM EDT Impressions 09/02/2024 8:55 PM EDT FINDINGS/IMPRESSION: Large field view imaging precludes fine osseous and soft tissue evaluation. Images were obtained for biometric analysis. Prior posterior instrument spinal fusion with hardware spanning the lower thoracic spine to L5. There is similar disruption of the posterior rods at the L2-L3 level best seen on the lateral projection. Similar lucency surrounding the right T10 and L2 screws, which may be due to loosening. Similar interbody device at L3-L4. Similar chronic compression fracture deformities of the T9 and L1 vertebral bodies. There is exaggerated kyphotic curvature centered at T9. Similar background multilevel disc degeneration and facet arthropathy. The sacrum is obscured by overlying soft tissue structures. Osseous structures appear demineralized. If this radiology report contains a blank impression section, it is an incomplete radiology report. Please contact the interpreting radiologist or applicable radiology division as soon as possible to obtain the completed interpretation. Workstation ID: [id number] Narrative 09/02/2024 8:55 PM EDT COMPARISON: 07/31/2023. Resulting Agency Comment [id number] Procedure Note Chriss Kapadia MD - 09/02/2024 [...] compression fracture deformities of the T9 and L9lktukgazs bodies. There is exaggerated kyphotic curvature centered at T9. Similarbackground multilevel disc degeneration and facet arthropathy. The sacrum is obscured by overlying soft tissue structures. Osseousstructures appear demineralized. If this radiology report contains a blank impression section, it is anincomplete radiology report. Please contact the interpreting radiologistor applicable radiology division as soon as possible to obtain thecompleted interpretation. Workstation ID: [id number] us Vicente Chandra MD IMG XR PROCEDURES Final Res ult from Last 3 Months Insurance MEDICARE [facility] MCR SUPP Advance Directives Documents on File Type Date Recorded Patient City Driver Expl [facility] Care Proxy 02/10/2017 12:00 AM 01/17 * Full Code (Latest Code Status on File) Date Activated Date Inactivated Comments 03/08/2020 4:58 PM 03/09/2020 6:37 PM * Full Code Date Activated Date Inactivated Comments 03/08/2020 11:29 AM 03/08/2020 4:58 PM Care Teams Mail Officer Relationship Specialty Start Date End Date Anabella Lopez [address] [place] [address] PCP - General 12/05/16
--- OUTSIDE RECORDS SUMMARY | 2024-11-25 09:10 | XMS_ITS | Patient Health Record ---
Author Organization [facility] Address [address] [address] Care Team Providers Care Assistant Film Editor Name Role Phone Anabella Lopez MD Primary Care Provider Kera Choudhary Unavailable [phone] Allergies No Known Allergies Reason For Referral No Information Medications Medication SIG (Take, Route, Frequency, Duration) Notes Start Date End Date Status Gabapentin 600 MG 600 MG ORALLY 2 TIME S A DAY Oral; Duration: 90 Days Active Estradiol Vaginal Cream 0.01% 1 Gram to the affected area Vaginal/Vulva Twice a week; Duration: 90 Days 05/05/2023 Active Omeprazole 20 MG Oral; Duration: 90 Days Active hydroCHLOROthiazide 12.5 MG TAKE 1 TABLE T BY MOUTH IN THE MORNING Oral; Duration: 90 Days Active Levothyroxine Sodium 112 MCG 1 tablet in the morning on an empty stomach Orally Once a day Active Clobetasol Propionate 0.05 % 1 applicati on to affected area Externally EVERY OTHER NIGHT; Duration: 90 DAYS 05/05/2023 Active Atorvastatin Calcium 10 MG TAKE 1 TABLET BY MOUTH ONCE DAILY Oral; Duration: 90 Active Social History Tobacco Use: Social [...] Status Risk Notes Problem Postmenopausal atrophic vaginitis (24714317) 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) Active confirmed Problem Localized morphea (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) Lichen sclerosus et atrophicus (L90.0) Active confirmed Problem 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) Active confirmed Vital Signs Temperature 97.4 degrees Fahrenheit 08/18/2024 Blood pressure diastolic 64 mm Hg 08/18/2024 Height 66 in 08/18/2024 Blood pressure systolic 112 mm Hg 08/18/2024 Weight 186 lbs 08/18/2024 BMI 30.02 kg/m2 08/18/2024 Encounters Encounter Location Date Provider Diagnosis [address] [place] [address] [address] [facility] [address] [place] [address] 06/25/2024 Kera Waldron Encounter for gynecological examination (general) (routine) with abnormal findings Z01.411 ; Encounter for screening mammogram for malignant neoplasm of breast Z12.31 ; Lichen sclerosus et atrophicus L90.0 ; Atrophy of vulva N90.5 and Postmenopausal atrophic vaginitis N95.[address] [place] [address] 08/18/2024 Kera Waldron Lichen sclerosus et atrophicus [...] Test Test Name Order Date MAMMOGRAM, SCREENING 09/15/2014 MAMMOGRAM, SCREENING 04/30/2021 MAMMOGRAM, SCREENING 05/05/2023 DIAGNOSTIC MAMMOGRAM, RIGHT BREAST 04/30 BONE DENSITY 04/27/2020 MM Digital Mammo Screening 04/30/2021 MM Digital Mammo Screening 06/25/2024 MM Digital Mammo Screening 05/02/2022 MM Digital Mammo Screening 05/05/2023 Right Breast Ultrasound 04/30/2021 Next Appt Details Provider Name:Kera stone, 02/28/2025 09:40:00 AM, [address] [facility], [address], [place], [address], Insurance Providers Payer Name Payer Address Payer Phone Subscriber Number Group Number Insured Name Patient Relationship to Insured Coverage Start Date Coverage End Date MEDICARE [address] JUAN A LINDO [id number] [phone] [id number] ROSALIO LR Self - patient is the insured MEDEX [address] [place] [address] [id number] ROSALIO LR Self - patient is [...]
== END 2024-11-25 12:10 | disposition home or self-care (01) ==
LOC: HO.HMCC 08:52
PROVIDERS: PCP Internal Medicine; Visit Provider Internal Medicine
DX: I63.9 Cerebral infarction, unspecified (principal); R51.9 Headache, unspecified; Z23 Encounter for immunization

== ENCOUNTER → 2024-11-25 08:51 | Outpatient (BNVA) | payer MEDICARE, SELFPAY | PROVIDERS: PCP Internal Medicine; Visit Provider Internal Medicine | DX: Z23 Encounter for immunization (principal); R51.9 Headache, unspecified; I63.9 Cerebral infarction, unspecified | CPT/HCPCS: 90471; 90677; 99212 ==

== ENCOUNTER 2024-12-07 13:45 | Outpatient (REF) | payer MEDICARE, SELFPAY ==
--- NOTE | ~2024-12-07 | CT_ITS ---
EXAMINATION: CT HEAD WITHOUT CONTRAST CLINICAL INFORMATION: Cerebral infarction, unspecified. COMPARISON: 06/30/2017. TECHNIQUE: Contiguous axial imaging was performed from the skull base to vertex without intravenous administration of contrast. Venous access could not be established, and contrast could not be administered as ordered. This CT examination was performed using dose optimization techniques as appropriate, variously including the following: *Automated exposure control *Adjustment of mA and/or kV according to patient size (this includes techniques or standardized protocols for targeted exams where dose is matched to indication/reason for exam; i.e. extremities or head) *Use of iterative reconstruction technique FINDINGS: There is no evidence of intracranial hemorrhage or extra-axial fluid collection. There is no mass effect, or edema. No CT evidence of acute territorial infarct. Ventricles, sulci, and cisterns are normal in size and configuration for patient age. No hydrocephalus. No midline shift. Negative hyperdense MCA sign. Negative insular ribbon sign. Patchy periventricular and deep white matter hypoattenuation is consistent with mild small vessel ischemic changes. There is an empty sella. Mild atheromatous calcification of the bilateral carotid siphons. Globes and orbital contents image normally. No extracranial soft tissue abnormalities. The paranasal sinuses, mastoid air cells, and tympanic cavities are normally aerated. No suspicious bony abnormalities. There are no acute fractures evident. CT/CT head/brain wo IV con IMPRESSION: No acute intracranial abnormality. Electronically signed by: Chriss Melendez MD 12/07/2024 03:26 PM EDT
--- OUTSIDE RECORDS SUMMARY | 2024-12-07 14:55 | XMS_ITS | Referral Summary ---
Author Organization [facility] Address [address] [place] [address] Care Team Providers Care Technical Support Associate Name Role Phone CharbellesterAnabella Primary Care Provider Allergies Active Allergy Reactions Criticality Noted Date [...] Info) Description 09/06/2025 12:00 PM EDT Follow-Up [facility] [address] [place] [address] Vicente Chandra MD [address] [place] [address] Medical Devices Implanted Type Area Lending Consultant Device Identifier Shelf Expiration Date Model / Serial / Lot Mesh Flat [id number] - [id number] Implanted:Qty: 1 on 03/08/2020 by Brenton Horton MD at [facility] Mesh N/A: Abdomen CR [employer] 10/13/2024 [id number] / / [id number] Mesh Tissue Bioabsorbable [id number] Bio-A - [id number] - [id number] Implanted:Qty: 1 on 03/08/2020 by Brenton Horton MD at [facility] Mesh N/A: Iwona HARPER 09/05/2022 [id number] / [id number] / Insurance MEDICARE [facility] Advance Directives Documents on File Type Date Recorded Patient Night Coordinator [facility] Pro[facility] 02/10/2017 12:00 AM 01/17 * Full Code (Latest Code Status on File) Date Activated Date Inactivated Comments 03/08/2020 4:58 PM 03/09/2020 6:37 PM * Full Code Date Activated Date Inactivated Comments 03/08/2020 11:29 AM 03/08/2020 4:58 PM Care Teams Technical Support Associate Relationship Specialty Start Date End Date Anabella Lopez [address] [place] [address] PCP - General 12/05/16
== END 2024-12-07 13:46 | disposition home or self-care (01) ==
LOC: HO.CT 13:45
PROVIDERS: PCP Internal Medicine; Visit Provider Internal Medicine
DX: I63.9 Cerebral infarction, unspecified (principal)
CPT/HCPCS: 70450

== ENCOUNTER → 2024-12-07 13:47 | Outpatient (BNV) | payer MEDICARE, SELFPAY | PROVIDERS: PCP Internal Medicine; Visit Provider Radiology Diagnostic Radiology | DX: I63.9 Cerebral infarction, unspecified (principal) | CPT/HCPCS: 70450 ==

== ENCOUNTER 2025-03-14 08:39 | Outpatient (AMB) | payer MEDICARE, SELFPAY ==
--- OUTSIDE RECORDS SUMMARY | 2024-08-09 06:40 | XMS_ITS ---
Author Organization [facility] Address [address] [facility] [address] [place] [address] Care Team Providers Care Tire Setter Name Role Phone John RAMESH, Anabella Primary Care Provider Kera Choudhary Unavailable [phone] REASON FOR VISIT LICHEN FOLLOW UP Encounters Encounter Location Date Provider Diagnosis [facility] [address] [address] 08/09/2024 Kera Waldron Plan Of Treatment Next Appt Details Provider Name:Kera stone, 07/06/2025 10:40:00 AM, [address] [place] [address], [address] , [place], [address], Progress Notes * ROSALIO LRDOB:1945 (79 yo F)Acc No.[id number]:08/09/2024 PROGRESS NOTES Patient: ROSALIO MURPHY Appointment Provider: Estela Waldron M.D. :1945 A ge:78 Y S ex:Female Date:08/09/2024 Address:[address] [place], [place] [id number] Pcp:Anabella Lopez MD Subjective: * Chief Complaints: * 1 . LICHEN FOLLOW UP. * Medical History: Objective: * Vitals: Assessment: Plan: * Treatment: * Images: Billing Information: * Visit Code: * Procedure Codes: * Electronic signature of Violet Waldron MD on 03/14/2025 at 09:07 AM EDT Sign off status: Pending * Appointment Provider: Estlea Waldron M.D. Date: 0 08/09/2024 Generated for Solo martin/Michael/Michelle on: 1 09:07 AM EDT
--- NOTE | 2025-03-14 08:48 | A.OFFPC_ITS ---
Vital Signs 03/14/25 08:51 Height 5 ft 6 in Weight 180 lb BMI 29.0 BP 124/74 Blood Pressure Location Lt brachial Position Sitting Respiration 18 Pulse 63 Pulse Source Pulse Oximeter Temp 97.6 F Temp Source Oral Pulse Oximetry (%) 98 Oxygen Delivery Method Room Air Intake Visit Reasons: 6m follow up Intake Note: Pt is here today for 6 months follow up visit. Allergies lisinopril Allergy (Unknown, Verified 03/14/25 09:07) hyperkalemia amlodipine Adverse Reaction (Verified 03/14/25 09:07) swelling in hands and legs Medication List - Last Reconciled 03/14/25 by Anabella Lopez MD ascorbate calcium (vitamin C) 500 mg PO DAILY atorvastatin 10 mg PO DAILY baclofen 10 mg PO BEDTIME cholecalciferol (vitamin D3) 25 mcg PO DAILY gabapentin 600 mg PO Q8H hydrochlorothiazide 12.5 mg PO QAM ibuprofen 800 mg PO Q8H levothyroxine 125 mcg PO DAILY lidocaine 5% 1 ea topical BID ms-ikosrly-nac-iron fm-FA-vitK 18 mg-400 mcg- 25 mcg (One-A-Day Women's Complete(with vit K)) tabs PO omeprazole 20 mg PO DAILY Tobacco use date assessed: 03/14/25 Fall risk assessment: No Falls in past year Last assessed Fall Risk: 03/14/25 Dental Screening Dental Screen Date: 11/02/24 HPI 6m follow up HPI Details Pt presents for f/u hyperlipid and hypothyroid, stable on meds. Pt's granddaughter is getting next year in [place]. Pt's c/o insomnia waking up in the early AM. Pt reports anxious about a few of her friends dying recently. [facility] Medical History Vitamin D deficiency Normal pelvic exam Annual physical exam Leg edema Bacteriuria Hiatal hernia Hypothyroidism Hyperlipidemia Lumbar radiculopathy Surgical History History of esophagogastroduodenoscopy (EGD) H/O colonoscopy History of spinal surgery Family History Father No problems noted. Mother No problems noted. Social History Housing: House Alcohol intake: current Alcohol intake frequency: holidays/special occasions only Patient Tobacco Use Status: Never used Tobacco e-Cigarette/Vaping Use: Never Used service: No Current occupational status: retired Current occupational exposures/hazards: No Cognitive needs: No Hearing needs: No Vision needs: No Questionnaire PHQ-9 Over the last 2 weeks, how often have you been bothered by any of the following problems? 1. Little interest or pleasure in doing things: not at all 2. Feeling down, depressed, or hopeless: not at all 3. Trouble falling or staying asleep, or sleeping too much: not at all 4. Feeling tired or having little energy: not at all 5. Poor appetite or overeating: not at all 6. Feeling bad about yourself - or that you are a failure or have let yourself or your family down: not at all 7. Trouble concentrating on things, such as reading the newspaper or watching television: not at all 8. Moving or speaking so slowly that other people could have noticed. Or the o pposite - being so fidgety or restless that you have been moving around a lot more than usual: not at all 9. Thoughts that you would be better off or of hurting yourself in some way: not at all Total score: 0 Depression Screening Interpretation: Negative Depression Screening Done: Yes Source: Developed by Drs. Michael Cuevas, Mercedes Costello, Geraldo Hartley and colleagues, with an educational garima from [employer]. Thrive Questionnaire Date Thrive assessed: 06/17/24 I am a: Patient What is your living situation today?: I have a steady place to live Within the past 12 months, did the food you bought not last and you didn't have the money to get more?: Never true Within the past 12 months, did you worry whether your food would run out before you got money to buy more?: Never true Do you have trouble paying for medicines?: No Do you have trouble getting transportation to medical appointments?: No Do you have trouble paying your heating and electricity bill?: No Do you have trouble taking care of your child, family member or friend?: No THRIVE Score: 0 AUDIT C Alcohol Use Questionnaire (AUDIT-C) 1. How often do you have a drink containing alcohol?: Never 3. How often do you have six or more drinks on one occasion?: Never Total Score: 0 JUDY-7 AMB Questionnaire JUDY-7 Date JUDY - 7 assessed: 03/14/25 Feeling nervous, anxious, or on edge: 0 = Not at all Not being able to stop or control worryin = Not at all Worrying too much about different things: 0 = Not at all Trouble relaxin = Not at all Being so restless that it is hard to sit still: 0 = Not at all Becoming easily annoyed or irritable: 0 = Not at all Feeling afraid as if something awful might happen: 0 = Not at all Total JUDY-7 score (0-4 normal; 5-9 mild; 10-14 moderate; 15-21 severe): 0 Source: Developed by Drs. Michael Cuevas, Mercedes Costello, Geraldo Hartley and colleagues, with an educational garima from [employer]. Review of Systems Const All systems reviewed & are unremarkable except as noted in HPI and below Eyes Reports no additional complaints ENT Reports no additional complaints Card Reports no additional complaints Resp Reports no additional complaints GI Reports no additional complaints Reports no additional complaints Physical exam (Primary Care) Vital Signs: Last Vital Signs Temp 97.6 F 03/14/25 08:51 Pulse 63 03/14/25 08:51 Resp 18 03/14/25 08:51 BP 124/74 03/14/25 08:51 Pulse Ox 98 03/14/25 08:51 Oxygen Delivery Method Room Air 03/14/25 08:51 BMI result Body Mass Index 29.0 Tobacco/Smoking Status: Tobacco use Status Tobacco use date assessed 03/14/25 03/14/25 09:08 Patient Tobacco Use Status Never used Tobacco 03/14/25 09:08 e-Cigarette/Vaping Use Never Used 03/14/25 08:49 PHQ-9: PHQ-9 Score PHQ-9: Total score 0 03/14/25 09:40 Depression Screening Interpretation: Negative Thrive Assessment: Date of Thrive Assessment Date Thrive assessed 06/17/24 03/14/25 08:49 Const General: no acute distress HENMT Head: Yes normal to inspection Resp Effort & Inspection: normal respiratory effort Auscultation: clear to auscultation bilaterally Cardio Rhythm: regular rhythm Heart sounds: S1 normal heart sound present and S2 normal heart sound present GI Inspection: Yes normal to inspection Palpation (GI): Soft to palpation Percussion: Yes normal to percussion Auscultation: normal bowel sounds Coding Level of Care Code Est Pt Level 4 (76768) Diagnoses Hyperlipidemia E78.5 Hypothyroidism E03.9 HTN (hypertension) I10 Insomnia G47.00 Assessment & Plan Assessment & Plan (1) Hyperlipidemia: Code(s): E78.5 - Hyperlipidemia, unspecified Category: Medical Plan: Continue stay (2) Hypothyroidism: Comment: f/u with Endo for multinodular goiter Code(s): E03.9 - Hypothyroidism, unspecified Category: Medical Plan: Continue levothyroxine (3) HTN (hypertension): Code(s): I10 - Essential (primary) hypertension Category: Medical Plan: Continue current medications (4) Insomnia: Code(s): G47.00 - Insomnia, unspecified Category: Medical Plan: Stress management discussed with the patient she will try trazodone as needed Orders: Orders Complete Blood Count Auto Diff Today E03.9 - Hypothyroidism, unspecified, E55.9 - Vitamin D deficiency, unspecified, E78.5 - Hyperlipidemia, unspecified, I10 - Essential (primary) hypertension TSH reflex Free T4 Today E03.9 - Hypothyroidism, unspecified, E55.9 - Vitamin D deficiency, unspecified, E78.5 - Hyperlipidemia, unspecified, I10 - Essential (primary) hypertension Lipid Panel Today E03.9 - Hypothyroidism, unspecified, E55.9 - Vitamin D deficiency, unspecified, E78.5 - Hyperlipidemia, unspecified, I10 - Essential (primary) hypertension Vitamin D 25-OH Total Today E03.9 - Hypothyroidism, unspecified, E55.9 - Vitamin D deficiency, unspecified, E78.5 - Hyperlipidemia, unspecified, I10 - Essential (primary) hypertension Comprehensive [place]. Panel Fast Today E03.9 - Hypothyroidism, unspecified, E55.9 - Vitamin D deficiency, unspecified, E78.5 - Hyperlipidemia, unspecified, I10 - Essential (primary) hypertension Medications: New trazodone 50 mg PO BEDTIME PRN 30 tabs 3RF insomnia trazodone 50 mg PO BEDTIME PRN 30 tabs 3RF insomnia Changed From gabapentin 600 mg PO Q8H 270 tabs 3RF To gabapentin 1,200 mg (2 x 600 mg) PO .qhs 270 tabs 3RF
[2025-03-14 08:51] VITALS: BP 124/74; PULSE 63; RESP 18; TEMP 36.4; O2SAT 98; BMI 29.0
--- OUTSIDE RECORDS SUMMARY | 2025-03-14 09:06 | XMS_ITS | Clinical Summary ---
Author Organization [facility] Address [address] [place] [address] Care Team Providers Care Business Executive Name Role Phone CharbellesterAnabella Primary Care Provider [phone] Allergies Active Allergy Reactions Criticality Noted Date [...] 11/23/2013 Hoarseness 11/23/2013 Laryngopharyngeal reflux (LPR) 11/23/2013 Family History Medical History Relation Name Comments [...] Info) Description 09/06/2025 12:00 PM EDT Follow-Up [facility] [address] [place] [address] Vicente Chandra MD [address] [place] [address] Health Maintenance Due Date Last Done Comments Osteoporosis Screening 11/12/1995 Zoster Vaccines (1 of 2) 11/12/1995 RSV Vaccine (60+ years old and patients) (1 - 1-dose 75+ series) 2020 DTaP,Tdap,and Td Vaccines (2 - Td or Tdap) 03/28/2021 03/28/2011 Alcohol/Substance Use Screening 05/19/2024 Depression Screening and Follow-Up 05/19/2024 Health Care Proxy Review 05/19/2024 Social Drivers of Health Annual Screening 05/19/2024 COVID-19 Vaccine ( season) 2025 03/16/2022, 03/07/2021, 07/25/2020, Additional history exists Influenza Vaccine (#1) 2025 3, 02/06/2022, 02/21/2021, Additional history exists Fall Risk Screening 09/02/2025 09/02/2024 Pneumococcal Vaccine: 50+ Years Completed 02/06/2022, 02/22/2011 Hepatitis B Vaccines Aged Out No long er eligible based on patient's age to complete this topic Medical Devices Implanted Type Area Cargo Service Agent Device Identifier Shelf Expiration Date Model / Serial / Lot Mesh Flat [id number] - [id number] Implanted:Qty: 1 on 03/08/2020 by Brenton Horton MD at [facility] Mesh N/A: Abdomen [employer] 10/13/2024 [id number] / / [id number] Mesh Tissue Bioabsorbable [id number] Bio-A - [id number] - [id number] Implanted:Qty: 1 on 03/08/2020 by Brenton Horton MD at [facility] Mesh N/A: Abdomen W L GORE 09/05/2022 [id number] / [id number] / Insurance MEDICARE BCBS MCR SUPP Advance Directives Documents on File Type Date Recorded Patient Refrigeration Houseman Expl [facility] Care Proxy 02/10/2017 12:00 AM 01/17 * Full Code (Latest Code Status on File) Date Activated Date Inactivated Comments 03/08/2020 4:58 PM 03/09/2020 6:37 PM * Full Code Date Activated Date Inactivated Comments 03/08/2020 11:29 AM 03/08/2020 4:58 PM Care Teams Business Executive Relationship Specialty Start Date End Date Anabella Lopez [address] [place] [address] PCP - General 12/05/16
== END 2025-03-14 09:51 | disposition home or self-care (01) ==
LOC: HO.HMCC 08:40
PROVIDERS: PCP Internal Medicine; Visit Provider Internal Medicine
DX: E78.5 Hyperlipidemia, unspecified (principal); E03.9 Hypothyroidism, unspecified; I10 Essential (primary) hypertension; G47.00 Insomnia, unspecified

== ENCOUNTER 2025-03-14 08:39 | Outpatient (REF) | payer MEDICARE, SELFPAY ==
[2025-03-14 13:31] LABS: MANUAL DIFF FLAG NO
[2025-03-14 13:46] LABS: Hematocrit 39.4 % (37.0-47.0); Hemoglobin 12.8 g/dl (12.0-16.0); Imm Gran Abs Auto 0.02 X10*3/uL (0.00-0.03); Imm Gran Pct Auto 0.3 % (0.0-0.4); Lymphocytes Absolute Auto 3.1 X10*3/uL (1.2-4.9); Mean Corpuscular HGB Conc 32.5 g/dl (31.0-35.0); Mean Corpuscular Hemoglobin 31.1 pg (27.0-33.0); Mean Corpuscular Volume 95.6 fL (80.0-98.0); NRBC Abs Auto 0.000 X10*3/uL (0.0-0.012); NRBC Pct Auto 0.0 /100WBC (0.0-0.2); Platelet Count 460 X10*3/uL (160-400); Red Blood Count 4.12 X10*6/uL (4.20-5.50); White Blood Count 6.8 X10*3/uL (4.8-10.8)
[2025-03-14 14:07] LABS: Alanine Aminotransferase 20 U/L (0-31); Albumin Level 4.6 g/dL (3.5-5.0); Alkaline Phosphatase 97 U/L (39-117); Anion Gap 11 (12-20); Aspartate Amino Transferase 26 U/L (5-31); Blood Urea Nitrogen 17 mg/dL (9-16); Calcium 9.2 mg/dL (8.4-10.2); Carbon Dioxide 30 mmol/L (22-29); Chloride 101 mmol/L (96-108); Cholesterol 199 mg/dL (<200); Estimated Glomerular Filt Rate > 60; HDL Cholesterol 63 mg/dL (>40); Potassium 4.0 mmol/L (3.3-5.1); Sodium 138 mmol/L (135-145); Total Protein 7.9 g/dL (6.5-8.0); Triglycerides 90 mg/dL (<150)
== END 2025-03-14 08:40 | disposition home or self-care (01) ==
LOC: HO.HMGCLDS 08:39
PROVIDERS: PCP Internal Medicine; Visit Provider Internal Medicine
DX: I10 Essential (primary) hypertension (principal); E78.5 Hyperlipidemia, unspecified; E03.9 Hypothyroidism, unspecified; E55.9 Vitamin D deficiency, unspecified; G47.00 Insomnia, unspecified; Z79.890 Hormone replacement therapy; Z79.899 Other long term (current) drug therapy
CPT/HCPCS: 36415; 80053; 80061; 82306; 84443; 85025; 96127; 99212

== ENCOUNTER 2025-03-24 12:29 | Outpatient (AMB) | payer MEDICARE, SELFPAY ==
--- NOTE | 2025-03-24 12:55 | MHC.OFFVIS ---
Vital Signs 03/24/25 12:56 Height 5 ft 6 in Weight 179 lb 0.246 oz BMI 28.9 BP 128/72 Blood Pressure Location Lt brachial Position Sitting Pulse 59 Pulse Source Monitor Intake Visit Reasons: 1 yr f/up Body Shop Manager Required: No Allergies lisinopril Allergy (Unknown, Verified 03/24/25 12:58) hyperkalemia amlodipine Adverse Reaction (Verified 03/24/25 12:58) swelling in hands and legs Medication List - Last Reconciled 03/24/25 by Malinda Mcclure NP-C ascorbate calcium (vitamin C) 500 mg PO DAILY atorvastatin 10 mg PO DAILY baclofen 10 mg PO BEDTIME cholecalciferol (vitamin D3) 25 mcg PO DAILY gabapentin 1,200 mg (2 x 600 mg) PO .qhs hydrochlorothiazide 12.5 mg PO QAM ibuprofen 800 mg PO Q8H levothyroxine 125 mcg PO DAILY lidocaine 5% 1 ea topical BID ns-xdhtyos-yhv-iron fm-FA-vitK 18 mg-400 mcg- 25 mcg (One-A-Day Women's Complete(with vit K)) tabs PO omeprazole 20 mg PO DAILY trazodone 50 mg PO BEDTIME PRN HPI HPI 1 yr f/up: Details: Maxine is a 79-year-old female with past medical history of hypertension, hyperlipidemia, abnormal EKG who presents for follow-up. Today she reports she has been feeling well overall since her last visit 03/22/2024. She denies any chest discomfortat rest or with exertioon. No shortness of breath, PND, orthopnea or edema. No palpitations, lightheadedness, presyncope, syncope, falls. She reports light physical activity and no routine exercise. She takes her medications as directed [facility] Medical History Acute carpal tunnel syndrome of right wrist Vitamin D deficiency Normal pelvic exam Annual physical exam Leg edema Bacteriuria Hiatal hernia Hypothyroidism Hyperlipidemia Lumbar radiculopathy Surgical History History of esophagogastroduodenoscopy (EGD) H/O colonoscopy History of spinal surgery Family History Father No problems noted. Mother No problems noted. Social History Housing: House Alcohol intake: current Alcohol intake frequency: holidays/special occasions only Patient Tobacco Use Status: Never used Tobacco e-Cigarette/Vaping Use: Never Used service: No Current occupational status: retired Current occupational exposures/hazards: No Cognitive needs: No Hearing needs: No Vision needs: No Review of Systems Const All systems reviewed & are unremarkable except as noted in HPI and below ENT Denies dizziness Card Denies chest pain, Denies chest pain at rest, Denies chest pain with activity, Denies rapid heart rate, Denies pedal edema, Denies edema, Denies leg edema, Denies lightheadedness, Denies palpitations, Denies dyspnea, Denies dyspnea on exertion and Denies orthopnea Resp Denies cough, Denies dyspnea and Denies dyspnea on exertion GI Denies hematochezia and Denies change in stool character Musc Denies abnormal gait, Denies limited range of motion, Denies muscle cramps, Denies muscle weakness, Denies numbness, Denies radiating pain into limb, Denies stiffness and Denies tingling Neuro Denies abnormal gait, Denies dizziness, Denies numbness and Denies tingling Endo Denies palpitations Physical Exam Vital Signs: Last Vital Signs Pulse 59 03/24/25 12:56 BP 128/72 03/24/25 12:56 BMI result Body Mass Index 28.9 Const General: cooperative, healthy appearing, comfortable and no acute distress Orientation/consciousness: patient oriented x3 Neck Neck: Yes normal visual inspection Resp Effort & Inspection: normal respiratory effort Auscultation: clear to auscultation bilaterally, no crackles, no rales, no rhonchi and no wheezes Cardio Jugular venous distension: no JVD Rate: regular rate Rhythm: regular rhythm Heart sounds: S1 normal heart sound present, S2 normal heart sound present, no murmurs and no rubs Neuro General: patient oriented x3 Extrem General: Yes normal to inspection and No no pedal edema Psych Appearance: grossly normal Mental Status: mental status grossly normal Speech and movement: Normal speech and movement present Office Procedures EKG Details: Today, read by me, sinus bradycardia with first-degree AV block, low-voltage QRS, can not exclude prior anterior infarct, rate 59, QTC 429 milliseconds -slight increase in DE intervals from last EKG [id number], Complete Assessment & Plan Assessment & Plan (1) Abnormal EKG: Code(s): R94.31 - Abnormal electrocardiogram [ECG] [EKG] Category: Medical Plan: EKGs abnormal, can not exclude inferior and anterior lateral MIs in the past. She denies any known history of known VA, heart disease. Echocardiogram done at [facility] 2020 showed EF 60-65%, no wall motion abnormalities, no significant valve abnormalities. Nuclear stress test done in 2020 and again 01/2023 showed normal myocardial perfusion imaging. EKG done today showing normal sinus rhythm, first-degree AV block, can not exclude prior anterior infarct, rate 59. Has No anginal symptoms. Cardiac risk factor modification discussed. Signs and symptoms of angina reviewed. She would like to continue to follow with cardiology yearly. Cardiology follow-up in 1 year, sooner if needed (2) HTN (hypertension): Code(s): I10 - Essential (primary) hypertension Category: Medical Plan: Blood pressure goal less than 130/80. Well controlled at this time. Labs 03/14/2025 showed potassium 4, creatinine 0.85. Continue hydrochlorothiazide. (3) 1st degree AV block: Code(s): I44.0 - Atrioventricular block, first degree Category: Medical Plan: EKG today with first-degree AV block, DE interval 212 milliseconds. Repeat EKG next visit. Plan During the visit, we discussed continuing her current cardiovascular medications, as her recent EKG and stress test results were normal. We also talked about the importance of staying active and using walking sticks for stability. Follow-up is scheduled for one year, with instructions to report any new symptoms sooner. Patient Instructions: - Continue prescribed medications for hypertension and hyperlipidemia. - Use walking sticks for stability during walks. - Report any new symptoms such as chest pain or increased dizziness. - Follow up in one year or sooner if needed. Patient was informed and verbally consented to the use of an ambient scribe for clinic note documentation during this visit. Visit time spent on chart review, interview, assessment, orders, documentation. Coding Level of Care Code Est Pt Level 4 (90369) Complex EM visit Add On G2211 Diagnoses Abnormal EKG R94.31 HTN (hypertension) I10 1st degree AV block I44.0 CPT Codes EKG - CPT: [id number], Complete ([id number]) Time Spent (min) 28
[2025-03-24 12:56] VITALS: BP 128/72; PULSE 59; BMI 28.9
--- OUTSIDE RECORDS SUMMARY | 2025-03-24 15:22 | XMS_ITS | Clinical Summary ---
Author Organization [facility] Address [address] [place] [address] Care Team Providers Care Swimming Pool Salesperson Name Role Phone Anabella Lopez Primary Care Provider [phone] Allergies Active Allergy Reactions Criticality Noted Date [...] Description 09/06/2025 12:00 PM EDT Follow-Up [facility] [address] [place] [address] Vicente Chandra MD [address] [place] [address] Health Maintenance Due Date Last Done Comments [...] this topic Medical Devices Implanted Type Area Video Game Maker Device Identifier Shelf Expiration Date Model / Serial / Lot Mesh Flat [id number] - [id number] Implanted:Qty: 1 on 03/08/2020 by Brenton Horton MD at [facility] Mesh N/A: Abdomen [employer] 10/13/2024 [id number] / / [id number] Mesh Tissue Bioabsorbable [id number] Bio-A - [id number] - [id number] Implanted:Qty: 1 on 03/08/2020 by Brenton Horton MD at [facility] Mesh N/A: Abdomen W L GORE 09/05/2022 [id number] / [id number] / Insurance MEDICARE BCBS MCR SUPP Advance Directives Documents on File Type Date Recorded Patient Medicare Sales Executive Expl [facility] Care Proxy 02/10/2017 12:00 AM 01/17 * Full Code (Latest Code Status on File) Date Activated Date Inactivated Comments 03/08/2020 4:58 PM 03/09/2020 6:37 PM * Full Code Date Activated Date Inactivated Comments 03/08/2020 11:29 AM 03/08/2020 4:58 PM Care Teams Swimming Pool Salesperson Relationship Specialty Start Date End Date Anabella Lopez [address] [place] [address] PCP - General 12/05/16
== END 2025-03-24 13:22 | disposition home or self-care (01) ==
LOC: HO.HCS 12:30
PROVIDERS: PCP Internal Medicine; Visit Provider Nurse Practitioner Family
DX: R94.31 Abnormal electrocardiogram [ECG] [EKG] (principal); I10 Essential (primary) hypertension; I44.0 Atrioventricular block, first degree
CPT/HCPCS: 93010; 99214; G2211

== ENCOUNTER → 2025-03-24 12:29 | Outpatient (BNVA) | payer MEDICARE, SELFPAY | PROVIDERS: PCP Internal Medicine; Visit Provider Nurse Practitioner Family | DX: I10 Essential (primary) hypertension (principal); R94.31 Abnormal electrocardiogram [ECG] [EKG]; I44.0 Atrioventricular block, first degree; E78.5 Hyperlipidemia, unspecified; E03.9 Hypothyroidism, unspecified | CPT/HCPCS: 93005; 99212 ==